=== PATIENT | female | born 2005 | race Two or more races ===

== ENCOUNTER 2025-02-11 11:00 | Emergency (ER) | payer MEDICAID, SELFPAY ==
[2025-02-11 11:28] VITALS: BP 125/80; PULSE 98; RESP 18; TEMP 37.1; O2SAT 100; BMI 27.1
--- NOTE | 2025-02-11 11:47 | EDNOTE_ITS ---
ED Female Urogenital RME/HPI General Chief complaint: Urogenital-Female Stated complaint: PAINFUL URINATION Time Seen by Provider: 02/11/25 11:20 Source: patient Arrival date/time: 02/11/25 11:00 This is a 19-year-old female presents to the emergency department with complaints of painful irritated vaginal orifice. Patient reports her symptoms started after sexual activity. Complaining of vaginal discharge, painful urination, foul order. Reports she has a painful area in the lower part of her vagina. Denies fever, chills. Mode of arrival: ambulatory Limitations: no limitations Related Data Previous Rx's ?Medication ?Instructions ?Recorded doxycycline hyclate 100 mg capsule 100 mg PO Q12H 7 da ys #14 caps 02/11/25 Allergies Allergy/AdvReac Type Severity Reaction Status Date / Time No Known Allergies Allergy Verified 02/11/25 11:03 Review of Systems Review of Systems Systems Reviewed: All systems reviewed, normal except as documented Narrative Review of Systems: Gen: No fever, no chills, no weight loss EYES: No discharge, no visual changes, no pain HEENT: No ear pain, no congestion, no sore throat PULM: No shortness of breath, no cough, no congestion CV: No chest pain, no dyspnea on exertion, no palpitations GI: No nausea, no vomiting, no diarrhea, no pain, no constipation : No frequency, no urgency, positive dysuria, vaginal pain, vaginal discharge Musc/skel: No joint pain, no back pain Skin: No rash Psyc: No hallucinations, no depression Heme/Lymph: No easy bleeding or bruising tendencies Neuro: No weakness, no headache ED Exam General Limitations: Present no limitations General appearance: Present alert and in no apparent distress Head Head exam: Present atraumatic Eye Eye exam: Present normal appearance, PERRL and EOMI ENT ENT exam: Present normal exam, normal oropharynx and mucous membranes moist Neck Neck exam: Present normal inspection, full ROM and trachea midline Chest Chest inspection: Present normal inspection and symmetric chest wall rise Respiratory Respiratory exam: Present normal lung sounds bilaterally Cardiovascular Cardiovascular exam: Present regular rate, normal rhythm and normal heart sounds Abdominal Exam Abdominal exam: Present soft and normal bowel sounds; Absent distention, tenderness or guarding External exam: Present erythema, tenderness and lacerations (Appears to have a small abrasion lower vaginal opening.) Speculum exam: Present vaginal discharge Extremities Exam Extremities exam: Present normal inspection and full ROM Back Exam Back exam: Present normal inspection and full ROM Neurological Exam Neurological exam: Present alert, oriented X3 and CN II-XII intact Psychiatric Psychiatric exam: Present normal affect and normal mood Skin Skin exam: Present warm, dry, intact and normal color Course Quality Measures none Orders Category Date Time Status Pelvic Exam X1 Care 02/11/25 11:46 Completed US pelvic complete Stat Exams 02/11/25 11:46 Completed Bacterial Vaginal Panel Stat Lab 02/11/25 12:53 Completed CBC Stat Lab 02/11/25 12:24 Completed CMP [Comprehensive Metabolic Panel] Stat Lab 02/11/25 12:24 Completed Chlamydia/GC/TV - PCR Stat Lab 02/11/25 12:15 Completed HCG,Qualitative Serum Stat Lab 02/11/25 12:24 Completed Path Review Blood Smear Stat Lab 02/11/25 12:24 Completed Urinalysis, C/S if Indicated Stat Lab 02/11/25 12:15 Completed Urine Culture Stat Lab 02/11/25 12:15 Completed cefTRIAXone [Rocephin] 500 mg Med 02/11/25 13:47 Discontinued Lidocaine 1% 20 ml [Xylocaine 1% 20 ML] 1 ml IM X1 Vital Signs Vital signs: Vital Signs Temperature 98.7 F 02/11/25 11:28 Pulse Rate 98 02/11/25 11:28 Respiratory Rate 18 02/11/25 11:28 Blood Pressure 125/80 02/11/25 11:28 Pulse Oximetry (%) 100 02/11/25 11:28 Oxygen Delivery Method Room Air 02/11/25 11:28 Urogenital - Female MDM Narrative MDM Narrative:: This is a 19-year-old female who presents to the emergency department for vaginal complaints of vaginal discharge dysuria after sexual activity. Pelvic exam done with roller print tender in room patient does have clear vaginal discharge, small area of tenderness irritation possible abrasion to lower vaginal orifice. A bacterial vaginosis swab was completed however no results will be posted today. I will treat her empirically for STDs advised to follow-up on the swab for possible BV Advised to keep follow-up with her PCP in 1 to 2 days. Return to the emergency department this any worsening symptoms or change in condition. Patient data External records reviewed:: [facility] previous records Clinical information provided by:: patient Social determinants that could affect healthcare access:: none Patient has the following chronic illnesses:: None How is presenting disease/condition affected by chronic disease/condition?: no chronic disease Evaluation data The following diagnostics were reviewed and interpreted by me:: other (specify) Lab and/or radiology exams considered but not ordered:: No Interpretation Summary: Examination: Pelvic ultrasound, transabdominal, complete Technique: Transabdominal ultrasound of the pelvis performed using grayscale imaging Date and time of exam: February 11, 2025 at 11:55 AM INDICATIONS: Vaginal pain beginning 3 days ago FINDINGS: Uterus 6.1 cm endometrial stripe 12 mm No uterine mass or intrauterine gestation Right ovary 3.5 cm arterial flow. Left ovary 3.7 cm arterial flow. IMPRESSION: Negative examination Medications / Prescriptions Medications or Prescriptions considered but not ordered:: No Medication administrations:: Medication Administration History Discontinued Medications Ceftriaxone Sodium 500 mg/ (Lidocaine HCl 1 ml) 0 mg IM X1 ONE Stop: 02/11/25 13:48 Last Admin: 02/11/25 13:59 Dose: 1,000 mg Documented By: OLIVE Comments: 2.1 ml lido All medications administered and effective Consultations Consultation(s) initiated? (list below): No Diagnosis Urogenital Female Differential Diagnosis: urinary tract infection, bacterial vaginosis, trichomoniasis, cervicitis and ruptured ovarian cyst Most likely diagnosis given after review of the tests above:: UTI, possible STDs Admission Indicated Admission indicated?: not indicated Admission Request Was there a request for admission?: No Disposition Plan Disposition Plan: Discharge Discharge Attestation Discharge Attestation: The patient and all family members were given an opportunity to ask questions and understood the discharge instructions. Discharge instructions specifically effects, indications for sooner follow up or return to the emergency department, and the expected course of current diagnosis. Patient condition: Stable Discharge Plan Plan Patient Disposition: HOME (Self Care) Patient condition on transfer: Stable Prescriptions/Referrals Prescriptions/Med Rec: New doxycycline hyclate 100 mg capsule 100 mg PO Q12H 7 Days Qty: 14 0RF Problem List Clinical Impression: Urinary tract infection, Pain associated with vaginal penetration, Potential exposure to STD Patient/Caregiver Discharge Instructions Discharge Activity: activity as tolerated Education Materials: ED CYSTITIS Female Adult Additional Instructions: Is very important that you start antibiotics as directed. Some of your lab results are not completed today if they are positive we will call you for results. Otherwise refrain from sexual activity for 7 days. Follow-up with your primary doctor/or DRY CLEANER APPRENTICE doctor for follow-up care. Return to the emergency department this any worsening symptoms or change in condition. Print Language: Taiwanese Stand Alone Forms: Kirsten Award Info., Work/School Release, Patient Portal Info Letter PA/CRISTIAN Supervising Physician PA/CRISTIAN Supervising Physician: Dr. Childress
[2025-02-11 12:33] LABS: Collection Type, Urine Clean Catch
[2025-02-11 12:45] LABS: Basophils # (Auto) 0.1 Thou/mm3 (0.0-0.2); Basophils % (Auto) 1 % (0-2.5); Eosinophils # (Auto) 0.1 Thou/mm3 (0.0-0.5); Eosinophils % (Auto) 1 % (0-10); Hematocrit 31.8 % (36.0-46.0); Hemoglobin 9.3 g/dL (12.0-16.0); Immature Granulocytes % (Auto) 0 % (0-0); Immature Granulocytes Auto 0.02 Thou/mm3 (0.00-0.00); Lymphocytes # (Auto) 1.9 Thou/mm3 (1.0-5.0); Lymphocytes % (Auto) 23 % (10-50); Mean Corpuscular HGB Conc 29.2 g/dl (31.0-37.0); Mean Corpuscular Hemoglobin 18.6 pg (25.0-35.0); Mean Corpuscular Volume 64 fL (80-100); Monocytes # (Auto) 0.6 Thou/mm3 (0.0-0.8); Monocytes % (Auto) 8 % (0-12); Neutrophils # (Auto) 5.3 Thou/mm3 (1.8-7.7); Neutrophils % (Auto) 67 % (37-80); Nucleated Red Blood Cell % 0 /100 WBC (0); Platelet Count 387 Thou/mm3 (140-440); RDW Standard Deviation 40.5 fL (36.4-46.3); White Blood Count 7.9 Thou/mm3 (4.5-11.0)
[2025-02-11 12:52] LABS: Bacteria,Urine Rare; Bilirubin,Urine Negative (Negative); Blood,Urine Negative (Negative); Clarity,Urine Cloudy (Clear/Hazy); Color,Urine Lt-Yellow (Lt Yel-Yel); Culture Indicated,Urine Yes; Glucose, Urine Negative (Negative); Ketones,Urine Negative (Negative); Leukocyte Esterase,Urine Positive (Negative); Nitrite,Urine Negative (Negative); Protein,Urine Negative (Neg - Trace); RBC,Urine 2 /hpf (0-3); Specific Gravity,Urine 1.011 (1.001-1.035); Squamous Epithelial Cell,Urine 6 /hpf (0-5); Urobilinogen,Urine Negative mg/dL (0.0-1.0); WBC,Urine 61 /hpf (0-5)
[2025-02-11 13:02] LABS: HCG,Qualitative Serum Negative
[2025-02-11 13:10] LABS: Alanine Aminotransferase 31 U/L (10-49); Albumin/Globulin Ratio 1.6 (1.2-2.2); Alkaline Phosphatase 79 U/L (46-116); Anion Gap 9 (7-16); Aspartate Amino Transferase 24 U/L (0-34); BUN/Creatinine Ratio 13 Ratio (12-20); Bilirubin,Total 0.4 mg/dL (0.3-1.2); Blood Urea Nitrogen 9 mg/dL (9-23); Calcium 9.8 mg/dL (8.3-10.6); Calcium (Corrected) 9.8 mg/dL (8.5-10.1); Carbon Dioxide 24.6 mMol/L (20.0-31.0); Chloride 102 mMol/L (98-107); Creatinine (Component) 0.7 mg/dL (0.6-1.3); Estimated Creatinine Clearance 139.6 mL/min (>60); Globulin 3.2 gm/dL (2.3-3.5); Glucose 97 mg/dL (74-106); Osmolality,Calculated 270 (275-295); Potassium 3.9 mMol/L (3.4-5.1); Sodium 136 mMol/L (136-145); Total Protein 8.2 gm/dL (5.7-8.2); eGFR > 60 See Note
[2025-02-11] MEDS: cefTRIAXone 500 MG, LIDOCAINE 1% 20 ML 1 ML IM (13:59)
[2025-02-11 15:14] LABS: Bacterial Vaginosis Markers Positive (Negative)
[2025-02-11 15:24] LABS: Chlamydia trachomatis PCR Negative (Not Detect); Neisseria Gonorrhoeae DNA PCR Negative (Not Detect); Trichomonas Negative (Negative)
[2025-02-11 17:29] LABS: BVAG Candida Positive (Negative); Candida glabrata Negative (Negative); Candida krusei PCR Negative (Negative); Trichomonas Negative (Negative)
[2025-02-11 17:48] LABS: Path Review Blood Smear Sent to Pathologist
== END 2025-02-11 14:12 | disposition home or self-care (01) ==
PROVIDERS: Nurse Practitioner Primary Care; Emergency Provider Emergency Medicine; PCP Family Medicine
DX: N39.0 Urinary tract infection, site not specified (principal); N94.10 Unspecified dyspareunia; Z20.2 Contact with and (suspected) exposure to infections with a predominantly sexual mode of transmission
CPT/HCPCS: 36415; 76856; 80053; 81001; 81514; 84703; 85025; 87086; 87491; 87591; 87661; 96372; 99284; J0696; J3490

== ENCOUNTER 2025-03-21 11:14 | Outpatient (AMB) | payer MEDICAID, SELFPAY ==
--- NOTE | 2025-03-21 11:50 | AMB.OBINITIA ---
Vital Signs 03/21/25 11:51 Height 1.68 m Height Method Stated Weight 78.471 kg Weight Measurement Method Standing Scale BMI 27.9 BP 122/71 Blood Pressure Source Automatic Cuff Blood Pressure Location Right Upper Arm Position Sitting Respiration 14 Pulse 77 Pulse Source Monitor Temp 98.5 F Temp Source Oral Pulse Oximetry (%) 99 Oxygen Delivery Method Room Air Allergies/Home Meds Allergies & Medications Allergies No Known Allergies Allergy (Verified 03/21/25 11:52) Medication Reconciliation No Known Home Medications 03/21/25 [History Confirmed 03/21/25] Intake Visit Data Collection New Patient or Established: Established Patient (seen at [facility] within 3 years) Reason for Visit:: INITIAL CARE Seen by Clinical Staff ONLY (RN/MA): No 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 1. Little interest or pleasure in doing things: not at all 2. Feeling down, depressed, or hopeless: not at all Total score: 0 PHQ-9 3. Trouble falling or staying asleep, or sleeping too much: Not at all 4. Feeling tired or having little energy: Not at all 5. Poor appetite or overeating: Not at all 6. Feeling bad about yourself - or that you are a failure or have let yourself or your family down: Not at all 7. Trouble concentrating on things, such as reading the newspaper or watching television: Not at all 8. Moving or speaking so slowly that other people could have noticed? - Or the opposite - being so fidgety or restless that you have been moving around a lot more than usual: not at all 9. Thoughts that you would be better off or of hurting yourself in some way: Not at all Total score: 0 Source: Developed by Drs. Ortiz Yeboah, Nancy Roman, Samir Modi and colleagues, with an educational royer from [employer]. Depression screen completed yes Social History Living Situation History Marital Status: Single Lives With: Family Housing: House Tobacco History Smoking Status: Never smoker Second Hand Smoke Exposure: No Alcohol History Alcohol Intake: Never Domestic Abuse History Do You Feel Safe at Home: Yes Past Medical History Past Medical History Have you ever been diagnosed with any of the following: Neurological Problems Seizures: No Reproductive Problems Previous Pregnancies: Yes Blood Problems Anemia: Yes History of Present Illness HPI Narrative 19-year-old 2 para 0 SAB 1 for OBI. Last. January 20, 2025. Patient reports sure dates she tracks.'s reports.'s are every month x 5 days. EDC October 28, 2025. Patient denies any existing chronic illness. Denies any social habits and denies any surgeries. She is having some nausea and vomiting with the . Denies any signs or symptoms of SAB. Both patient and partner are happy with the . OB Initial Visit OB Flowsheet OB Flowsheet Initial Weight: Not Recorded Date <del>?</del> EGA Weight Edema CTX Effacement BP Fundal ht Pres Dilation Effacement Station Visit Note Alb Glu FHR Mov 03/21/25 <del>?</del> 9w 5d 78.471 kg absent absent 122/71 8.0 30-year-old 3 para 2 with existing chronic hypertension. Patient's last. January 12, 2025. EDC October 18, 2025. Patient is 10 weeks by dates. She was given vitamins which she is taking. And started on labetalol 100 mg twice daily for chronic hypertension. Patient stopped taking her labetalol 2 weeks ago because of feeling lightheaded and dizzy. She denies any bleeding at this time but she had spotting a week ago. Vision is clear no headaches no epigastric pain. Today I encouraged patient to restart and continue her labetalol twice daily. Ordered a BP kit so patient can take her blood pressure at home and talk to her about taking her blood pressures while she was at work I gave a note for no use of a ladder and no lifting over 20 pounds for work. Patient wants to continue to work. Discussed danger signs symptoms okay to take Tylenol for headache. OB panel hemoglobin A1c CBC NIPT and carrier screening today. I did a CMP today as well. SAB precautions schedule ultrasound for dating and viability on hCG was done return in 3 weeks for follow-up OB check 19-year-old 2 para 0 for first OBI. Last. January 20, 2025. As admitted due date October 28, 2025. Today OB panel was drawn along with hemoglobin A1c and beta quant. Ultrasound for dates and viability. Discussed weight gain and diet. Walk 40 minutes a day. Return in 4 weeks OB check absent Menstrual History Menstrual reliability: definite Flow: normal Menstrual regularity: regular Monthly: Yes Age at menarche: 14 On control pills at conception: No Date of positive home test: 03/14/25 Associated symptoms (LMP): Reports nausea and breast tenderness OB History : 2 Hx Total # of Abortions (Spontaneous & Elective): 1 Infection History & Risk Evaluation History of STDs: none HIV risk evaluation: low risk Hepatitis B risk evaluation: low risk Patient or partner has history of Genital Herpes: No Genetic Screening & History Genetic Screening/Teratology Counseling - Includes patient, baby's father, or anyone in either family with: 1. Patient's age 35 years or older as of estimated date of delivery: No 2. Thalassemia (Frisian, Divehi, Mediterranean, or Background); MCV less than 80: No 3. Neural Tube Defect (Meningomyelocele, Spina Bifida, or Anencephaly): No 4. Congenital Heart Defect: No 5. Down Syndrome: No 6. Jamie-Sachs (Ashkenazi Christian, Cajun, Citizen Of The [place] Tunisian): No 7. Kaya Disease (Ashkenazi Christian): No 8. Familial Dysautonomia (Ashkenazi Christian): No 9. Sickle Cell Disease or Trait (): No 10. Hemophilia or other blood disorders: No 11. Muscular Dystrophy: No 12. Cystic Fibrosis: No 13. Dateland's Chorea: No 14. Mental Retardation/Autism: No 15. Other inherited genetic or chromosomal disorder: No 16. Maternal Metabolic Disorder (EG,TYPE 1 Diabetes, PKU): No 17. Patient or baby's father had a child with defects not listed above: No 18. Recurrent loss or a stillbirth: No 19. Medications (including supplements, vitamins, herbs or otc drugs)/illicit/recreational drugs/alcohol since last menstrual period: No 20. Any other: No Infection History 1. Live with someone with TB or exposed to TB: No 2. Rash or viral illness since last menstrual period: No 3. Hepatitis B,C: No Other (see comments) Source: [employer] Review of Systems Review of Systems Systems Reviewed: All systems reviewed, normal except as documented Gastrointestinal Gastrointestinal: Reports nausea Exam General Limitations: no limitations General Appearance: alert, in no apparent distress, comfortable, cooperative, healthy appearing, well developed and well groomed Chest Chest inspection: Present normal inspection and symmetric chest wall rise Resp Respiratory exam: Present normal lung sounds bilaterally Card Cardiovascular exam: Present regular rate, normal rhythm and normal heart sounds Abdominal Abdominal exam: Present soft and normal bowel sounds Psych Psychiatric exam: Present normal affect and normal mood Assessment & Plan Diagnosis / Problem List (1) Encounter for supervision of normal first , first trimester: Status: Acute Plan continue PNV, vitamin D and iron, increase foods high in vitamin D. SAB precaution, OB panel, HCG and HA1c, sono for viability, RTC 4 week Additional Plan Follow Up: 4 Weeks (obc) Office Procedures OB Clinic LOC & Office Proc's Nursing/Assessment Patient Status: Established Patient OB Clinic Nursing Assessment: Medication Reconciliation, Update PMH in EMR and Vital Signs OB Clinic Coordination of Care: Complex Care and Chronic Disease 1-5, Consent,records obtained, informed consent, Education Simp Pt/Fam, Lab and Imaging orders, Results/Orders obtained and Staff clarify orders Special Needs: Heart tones Miscellaneous Interventions: Blood/Urine Collection Established Patient Charge Established Patient Point Assignment: 165 Established Patient Point Charge: EP Level 5 (160-above)
[2025-03-21 11:51] VITALS: BP 122/71; PULSE 77; RESP 14; TEMP 36.9; O2SAT 99; BMI 27.9
== END 2025-03-21 12:15 | disposition home or self-care (01) ==
LOC: HODSOBC 11:14
PROVIDERS: Supervising Provider Obstetrics & Gynecology; Visit Provider Advanced Practice Midwife
DX: O09.621 Supervision of young multigravida, first trimester (principal); O09.891 Supervision of other high risk pregnancies, first trimester; O10.911 Unspecified pre-existing hypertension complicating pregnancy, first trimester; Z3A.09 9 weeks gestation of pregnancy
CPT/HCPCS: 99215; G0463

== ENCOUNTER 2025-04-11 09:23 | Outpatient (AMB) | payer MEDICAID, SELFPAY ==
[2025-04-11 09:32] VITALS: BP 120/69; PULSE 83; RESP 16; TEMP 36.6; O2SAT 98; BMI 26.8
--- NOTE | 2025-04-11 09:32 | OBCLNT_ITS ---
Vital Signs 04/11/25 09:32 Height 1.7 m Height Method Stated Weight 77.621 kg Weight Measurement Method Standing Scale BMI 26.8 BP 120/69 Blood Pressure Source Automatic Cuff Blood Pressure Location Right Upper Arm Position Sitting Respiration 16 Pulse 83 Pulse Source Monitor Temp 97.8 F Temp Source Oral Pulse Oximetry (%) 98 Oxygen Delivery Method Room Air Allergies/Home Meds Allergies & Medications Allergies No Known Allergies Allergy (Verified 04/11/25 09:33) Medication Reconciliation No Known Home Medications 03/21/25 [History Confirmed 04/11/25] Intake Visit Data Collection New Patient or Established: Established Patient [place] [facility] Reason for Visit:: CARE Seen by Clinical Staff ONLY (RN/MA): No Transformer Builder Required: No Do You Feel Safe at Home: Yes Authorities Contacted: N/A PCP or OBGYN visit in last 3 months: Yes Hx Now: Yes Are you currently on any form of Control: No Pain Present Currently: No Pain Scale Used: Oliver-Meza/Numerical Pain scale:: 0 Smoking Status Smoking Status: Never smoker Questionnaires Covid-19 Vaccine Questionnaire Has patient been vacinated for Covid-19 Have you been vacinated for Covid-19: Yes PHQ-9 PHQ-2 Over the last 2 weeks, how often have you been bothered by any of the following problems? 1. Little interest or pleasure in doing things: not at all 2. Feeling down, depressed, or hopeless: not at all Total score: 0 PHQ-9 3. Trouble falling or staying asleep, or sleeping too much: Not at all 4. Feeling tired or having little energy: Not at all 5. Poor appetite or overeating: Not at all 6. Feeling bad about yourself - or that you are a failure or have let yourself or your family down: Not at all 7. Trouble concentrating on things, such as reading the newspaper or watching television: Not at all 8. Moving or speaking so slowly that other people could have noticed? - Or the opposite - being so fidgety or restless that you have been moving around a lot more than usual: not at all 9. Thoughts that you would be better off or of hurting yourself in some way: Not at all Total score: 0 Source: Developed by Drs. Ortiz Yeboah, Nancy Roman, Samir Modi and colleagues, with an educational royer from [employer]. 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 Patient's last. January 12, 2025. EDC October 18, 2025. Patient is 10 weeks by dates. She was given vitamins which she is taking. And started on labetalol 100 mg twice daily for chronic hypertension. Patient stopped taking her labetalol 2 weeks ago because of feeling lightheaded and dizzy. She denies any bleeding at this time but she had spotting a week ago. Vision is clear no headaches no epigastric pain. Today I encouraged patient to restart and continue her labetalol twice daily. Ordered a BP kit so patient can take her blood pressure at home and talk to her about taking her blood pressures while she was at work I gave a note for no use of a ladder and no lifting over 20 pounds for work. Patient wants to continue to work. Discussed danger signs symptoms okay to take Tylenol for headache. OB panel hemoglobin A1c CBC NIPT and carrier screening today. I did a CMP today as well. SAB precautions schedule ultrasound for dating and viability on hCG was done return in 3 weeks for follow-up OB check 19-year-old 2 para 0 for first OBI. Last. January 20, 2025. As admitted due date October 28, 2025. Today OB panel was drawn along with hemoglobin A1c and beta quant. Ultrasound for dates and viability. Discussed weight gain and diet. Walk 40 minutes a day. Return in 4 weeks OB check 05/21/25 -?-?-?-?-?-?-?-?-?-?-?-?- 12w 5d 77.621 kg 120/69 absent unknown 12 156 absent no c/o of Bleeding,leraking or cramps, slight back ache, doing well NUSWAB for gc/ct, nipt and carrier screen, schedule MFM appointment, sab precaution, re-order dating scan, sab precaution, rtc 4 w obc YESSI Calculator Estimated Delivery Date Method Current WG Current Estimate 10/19/25 LMP (Certain) 12w 5d Notes Visit Date: 04/11/25 Last Updated by: Angle Abrams, BAILEY 19yo, . LMP 01/20. EDC 10/28/25. A+,abs-, rpr;;nr, rub IMM hbsag-,hiv-,HC-, gc/ct done Office Procedures OB Clinic LOC & Office Proc's Nursing/Assessment Patient Status: Established Patient OB Clinic Nursing Assessment: Medication Reconciliation, Update PMH in EMR and Vital Signs OB Clinic Coordination of Care: Complex Care and Chronic Disease 1-5, Consent,records obtained, informed consent, Education Simp Pt/Fam, Lab and Imaging orders, Results/Orders obtained and Staff clarify orders Special Needs: Heart tones Established Patient Charge Established Patient Point Assignment: 135 Established Patient Point Charge: EP Level 4 (120-155) Assessment & Plan Diagnosis / Problem List (1) Encounter for supervision of normal first , first trimester: Status: Acute Plan nipt,carrier screen today, sched MFM anatomy scan, discuss lab, sab precaution, continue PNV and vitamin D. rtc 4 week, NUswab for gc/ct Additional Plan Follow Up: 4 Weeks (obc)
== END 2025-04-11 10:06 | disposition home or self-care (01) ==
LOC: HODSOBC 09:23
PROVIDERS: Supervising Provider Advanced Practice Midwife; Visit Provider Advanced Practice Midwife
DX: O09.621 Supervision of young multigravida, first trimester (principal); Z3A.12 12 weeks gestation of pregnancy
CPT/HCPCS: 99214; G0463

== ENCOUNTER 2025-04-24 13:06 | Outpatient (AMB) | payer MEDICAID, SELFPAY ==
--- NOTE | 2025-04-24 13:17 | OBCLNT_ITS ---
Vital Signs 04/24/25 13:18 Height 1.7 m Height Method Stated Weight 77.678 kg Weight Measurement Method Standing Scale BMI 26.8 BP 115/69 Blood Pressure Source Automatic Cuff Blood Pressure Location Right Upper Arm Position Sitting Respiration 17 Pulse 79 Pulse Source Monitor Temp 98.3 F Temp Source Temporal Artery Scan Pulse Oximetry (%) 95 Oxygen Delivery Method Room Air Allergies/Home Meds Allergies & Medications Allergies No Known Allergies Allergy (Verified 04/24/25 13:19) Medication Reconciliation clotrimazole 2 % vaginal cream (Gyne-Lotrimin) 1 appful vaginal QHS 3 days #21 grams 04/24/25 [Rx] metronidazole 500 mg tablet 500 mg PO BID 7 days #14 tabs 04/24/25 [Rx] Intake Visit Data Collection New Patient or Established: Established Patient (seen at [facility] within 3 years) Reason for Visit:: OBC Seen by Clinical Staff ONLY (RN/MA): No 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 1. Little interest or pleasure in doing things: not at all 2. Feeling down, depressed, or hopeless: not at all Total score: 0 PHQ-9 3. Trouble falling or staying asleep, or sleeping too much: Not at all 4. Feeling tired or having little energy: Not at all 5. Poor appetite or overeating: Not at all 6. Feeling bad about yourself - or that you are a failure or have let yourself or your family down: Not at all 7. Trouble concentrating on things, such as reading the newspaper or watching television: Not at all 8. Moving or speaking so slowly that other people could have noticed? - Or the opposite - being so fidgety or restless that you have been moving around a lot more than usual: not at all 9. Thoughts that you would be better off or of hurting yourself in some way: Not at all Total score: 0 If you checked off any problems, how difficult have these problems made it for you to do your work, take care of things at home, or get along with other people?: not difficult at all Source: Developed by Drs. Ortiz Yeboah, Nancy Roman, Samir Modi and colleagues, with an educational royer from [employer]. 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 Patient's last. January 12, 2025. EDC October 18, 2025. Patient is 10 weeks by dates. She was given vitamins which she is taking. And started on labetalol 100 mg twice daily for chronic hypertension. Patient stopped taking her labetalol 2 weeks ago because of feeling lightheaded and dizzy. She denies any bleeding at this time but she had spotting a week ago. Vision is clear no headaches no epigastric pain. Today I encouraged patient to restart and continue her labetalol twice daily. Ordered a BP kit so patient can take her blood pressure at home and talk to her about taking her blood pressures while she was at work I gave a note for no use of a ladder and no lifting over 20 pounds for work. Patient wants to continue to work. Discussed danger signs symptoms okay to take Tylenol for headache. OB panel hemoglobin A1c CBC NIPT and carrier screening today. I did a CMP today as well. SAB precautions schedule ultrasound for dating and viability on hCG was done return in 3 weeks for follow-up OB check 19-year-old 2 para 0 for first OBI. Last. January 20, 2025. As admitted due date October 28, 2025. Today OB panel was drawn along with hemoglobin A1c and beta quant. Ultrasound for dates and viability. Discussed weight gain and diet. Walk 40 minutes a day. Return in 4 weeks OB check 04/11/25 -?-?-?-?-?-?-?-?-?-?--?-?- 11w 4d 77.621 kg 120/69 absent unknown 12 156 absent no c/o of Bleeding,leraking or cramps, slight back ache, doing well NUSWAB for gc/ct, nipt and carrier screen, schedule MFM appointment, sab precaution, re-order dating scan, sab precaution, rtc 4 w obc 04/24/25 -?-?-?-?-?-?-?-?-?-?-?-?- 13w 3d 77.678 kg 115/69 absent unknown 13 156 active c/o vaginal pain, discharge, curdy, foul odor, vagina red,swollen flagyl 500 bid x7, gynelotrimin x7, nuswab plus, schedule MFM anatomy scan, sb precaution. comfort measure for vaginitis, iron bid. rtc 4 week obc YESSI Calculator Estimated Delivery Date Method Current WG Current Estimate 10/27/25 LMP (Certain) 13w 3d Notes Visit Date: 04/24/25 Last Updated by: Angle Abrams CNM NIPT:neg/girl, SMA- Visit Date: 04/11/25 Last Updated by: Angle Abrams CNM 19yo, . LMP 01/20. EDC 10/28/25. A+,abs-, rpr;;nr, rub IMM hbsag-,hiv-,HC-, gc/ct done Office Procedures OB Clinic LOC & Office Proc's Nursing/Assessment Patient Status: Established Patient OB Clinic Nursing Assessment: Medication Reconciliation, Update PMH in EMR and Vital Signs OB Clinic Coordination of Care: Complex Care and Chronic Disease 1-5, Consent,records obtained, informed consent, Education Simp Pt/Fam and Staff clarify orders Special Needs: Heart tones Established Patient Charge Established Patient Point Assignment: 115 Established Patient Point Charge: EP Level 3 (80-115) Assessment & Plan Diagnosis / Problem List (1) Encounter for supervision of normal first , first trimester: Status: Acute (2) Bacterial vaginal infection: Status: Acute Plan nuswab pluw, start flagyl 500 bid x7 and gynelotrimin x7 days, comfort measure for vaginitis, ordered UA, increase fluid, start iron bid. sched MFM appointment. rtc 3 week Additional Plan Follow Up: 3 Weeks (obc)
[2025-04-24 13:18] VITALS: BP 115/69; PULSE 79; RESP 17; TEMP 36.8; O2SAT 95; BMI 26.8
== END 2025-04-24 13:52 | disposition home or self-care (01) ==
LOC: HODSOBC 13:06
PROVIDERS: Supervising Provider Advanced Practice Midwife; Visit Provider Advanced Practice Midwife
DX: O09.891 Supervision of other high risk pregnancies, first trimester (principal); Z3A.13 13 weeks gestation of pregnancy; O23.591 Infection of other part of genital tract in pregnancy, first trimester; N76.0 Acute vaginitis
CPT/HCPCS: 99213; G0463

== ENCOUNTER 2025-05-09 09:49 | Outpatient (AMB) | payer MEDICAID, SELFPAY ==
[2025-05-09 10:31] VITALS: BP 119/68; PULSE 66; RESP 17; TEMP 36.7; O2SAT 97; BMI 26.7
--- NOTE | 2025-05-09 10:31 | AMB.OBVISIT ---
Vital Signs 05/09/25 10:31 Height 1.7 m Height Method Stated Weight 77.224 kg Weight Measurement Method Standing Scale BMI 26.7 BP 119/68 Blood Pressure Source Automatic Cuff Blood Pressure Location Right Upper Arm Position Sitting Respiration 17 Pulse 66 Pulse Source Monitor Temp 98.0 F Temp Source Temporal Artery Scan Pulse Oximetry (%) 97 Oxygen Delivery Method Room Air Allergies/Home Meds Allergies & Medications Allergies No Known Allergies Allergy (Verified 05/09/25 10:32) Medication Reconciliation No Known Home Medications 05/09/25 [History Confirmed 05/09/25] Intake Visit Data Collection New Patient or Established: Established Patient (seen at [facility] within 3 years) Reason for Visit:: OBC Seen by Clinical Staff ONLY (RN/MA): No Net C Developer Required: No Do You Feel Safe at Home: Yes Authorities Contacted: N/A PCP or OBGYN visit in last 3 months: Yes Date of Last PCP or OBGYN visit: 04/24/25 Hx Now: Yes Are you currently on any form of Control: No Pain Present Currently: Yes Pain Location: Throat Pain Scale Used: Oliver-Meza/Numerical Pain scale:: 3 Smoking Status Smoking Status: Never smoker Questionnaires Covid-19 Vaccine Questionnaire Has patient been vacinated for Covid-19 Have you been vacinated for Covid-19: Yes PHQ-9 PHQ-2 Over the last 2 weeks, how often have you been bothered by any of the following problems? 1. Little interest or pleasure in doing things: not at all 2. Feeling down, depressed, or hopeless: not at all Total score: 0 PHQ-9 3. Trouble falling or staying asleep, or sleeping too much: Not at all 4. Feeling tired or having little energy: Not at all 5. Poor appetite or overeating: Not at all 6. Feeling bad about yourself - or that you are a failure or have let yourself or your family down: Not at all 7. Trouble concentrating on things, such as reading the newspaper or watching television: Not at all 8. Moving or speaking so slowly that other people could have noticed? - Or the opposite - being so fidgety or restless that you have been moving around a lot more than usual: not at all 9. Thoughts that you would be better off or of hurting yourself in some way: Not at all Total score: 0 If you checked off any problems, how difficult have these problems made it for you to do your work, take care of things at home, or get along with other people?: not difficult at all Source: Developed by Drs. Ortiz Yebaoh, Nancy Roman, Samir Modi and colleagues, with an educational royer from [employer]. 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 Patient's last. January 12, 2025. EDC October 18, 2025. Patient is 10 weeks by dates. She was given vitamins which she is taking. And started on labetalol 100 mg twice daily for chronic hypertension. Patient stopped taking her labetalol 2 weeks ago because of feeling lightheaded and dizzy. She denies any bleeding at this time but she had spotting a week ago. Vision is clear no headaches no epigastric pain. Today I encouraged patient to restart and continue her labetalol twice daily. Ordered a BP kit so patient can take her blood pressure at home and talk to her about taking her blood pressures while she was at work I gave a note for no use of a ladder and no lifting over 20 pounds for work. Patient wants to continue to work. Discussed danger signs symptoms okay to take Tylenol for headache. OB panel hemoglobin A1c CBC NIPT and carrier screening today. I did a CMP today as well. SAB precautions schedule ultrasound for dating and viability on hCG was done return in 3 weeks for follow-up OB check 19-year-old 2 para 0 for first OBI. Last. January 20, 2025. As admitted due date October 28, 2025. Today OB panel was drawn along with hemoglobin A1c and beta quant. Ultrasound for dates and viability. Discussed weight gain and diet. Walk 40 minutes a day. Return in 4 weeks OB check 04/11/25 <del>?</del> 11w 4d 77.621 kg 120/69 absent unknown 12 156 absent no c/o of Bleeding,leraking or cramps, slight back ache, doing well NUSWAB for gc/ct, nipt and carrier screen, schedule MFM appointment, sab precaution, re-order dating scan, sab precaution, rtc 4 w obc 04/24/25 <del>?</del> 13w 3d 77.678 kg 115/69 absent unknown 13 156 active c/o vaginal pain, discharge, curdy, foul odor, vagina red,swollen flagyl 500 bid x7, gynelotrimin x7, nuswab plus, schedule MFM anatomy scan, sb precaution. comfort measure for vaginitis, iron bid. rtc 4 week obc 05/09/25 <del>?</del> 15w 4d 77.224 kg 119/68 absent unknown 15 160 active vaginitis improved, did not take flagyl, no sab complaints today. light fm vaginitis improved, did not take flagyl, no sab complaints today. light fm. MFM 06/22/25 advised to complete flagyl now, discuss compliance with meds. schedule MFM appt, AFP today, discuss SAB precaution, rtc 4 week obc YESSI Calculator Estimated Delivery Date Method Current WG Current Estimate 10/27/25 LMP (Certain) 15w 4d Notes Visit Date: 05/09/25 Last Updated by: Angle Abrams CNM A+,abs-, rpr;;nr, rub imm, hbsag-, hiv-, HC-, GC/CT-, NIPT/carrier screen- Visit Date: 04/24/25 Last Updated by: Angle Abrams CNM NIPT:neg/girl, SMA- Visit Date: 04/11/25 Last Updated by: Angle Abrams CNM 19yo, . LMP 01/20. EDC 10/28/25. A+,abs-, rpr;;nr, rub IMM hbsag-,hiv-,HC-, gc/ct done Office Procedures OB Clinic LOC & Office Proc's Nursing/Assessment Patient Status: Established Patient OB Clinic Nursing Assessment: Medication Reconciliation, Update PMH in EMR and Vital Signs OB Clinic Coordination of Care: Complex Care and Chronic Disease 1-5, Consent,records obtained, informed consent, Education Simp Pt/Fam and Staff clarify orders Special Needs: Heart tones Established Patient Charge Established Patient Point Assignment: 115 Established Patient Point Charge: EP Level 3 (80-115) Assessment & Plan Diagnosis / Problem List (1) Encounter for supervision of high risk in second trimester, antepartum: Status: Acute Plan complete flagyl as directed, discuss lab, comfort measure for bV, schedule mfm appointment on 06/22, sab precaution, rtc 4 w obc Additional Plan Follow Up: 4 Weeks (obc)
== END 2025-05-09 10:46 | disposition home or self-care (01) ==
LOC: HODSOBC 09:49
PROVIDERS: Supervising Provider Advanced Practice Midwife; Visit Provider Advanced Practice Midwife
DX: O09.892 Supervision of other high risk pregnancies, second trimester (principal); O23.592 Infection of other part of genital tract in pregnancy, second trimester; N76.0 Acute vaginitis; Z3A.15 15 weeks gestation of pregnancy
CPT/HCPCS: 99213; G0463

== ENCOUNTER 2025-05-17 22:16 | Emergency (ER) | payer MEDICAID, SELFPAY ==
[2025-05-17 22:18] VITALS: BMI 26.9
[2025-05-17 22:29] VITALS: BP 134/71; PULSE 111; RESP 18; TEMP 37; O2SAT 100
--- NOTE | 2025-05-17 22:40 | XR_ITS ---
Examination: Complete OB ultrasound greater than 14 weeks Date and time of exam: May 17, 2025 1123 hours INDICATIONS: Pelvic pain and cramping today Findings: Viable intrauterine single fetus with single amniotic sac presentation breech Cardiac motion 197 BPM Placenta fundal grade 1 Poor visualization umbilical cord Amniotic fluid volume adequate Cervix 4.0 cm Ovaries obscured by bowel gas. Composite estimated gestational age based on BPD, head circumference, abdominal circumference, femur length is 16 weeks 3 days Estimated weight 170 g. Survey of intracranial anatomy, spinal anatomy, abdominal anatomy, four-chamber heart performed with no abnormalities identified. Impression: Viable intrauterine gestation breech presentation No placental hemorrhage Cardiac motion 197 BPM.
[2025-05-18 00:35] LABS: COVID-19 Antigen (In-House) Negative (Negative)
--- NOTE | 2025-05-18 01:57 | PRELIM_ITS ---
Obstetric ultrasound. May 17, 2025 at 2323 hours Clinical history: Pain, no bleeding; 17 weeks. LMP 01/20/2025. Comparison: No prior study is available for comparison. Findings: There is a gravid uterus with a live fetus in breech presentation of mean gestational age 16 weeks and 3 days (by biometry). cardiac activity is present at a heart rate of 197 beats per minute. The placenta is fundal in location, maturity grade I. There is no evidence of placenta previa or retroplacental hemorrhage. Amniotic fluid is subjectively adequate. Estimated weight is 170.4 grams+/- 25 grams. Estimated due date by ultrasound is 10/29/2025. Cervical length measures 4.0 cm. The ovaries are obscured by bowel gas and are not visualized/evaluated on this examination. Impression: Gravid uterus with a single live fetus in breech presentation of mean gestational age 16 weeks 3 days. tachycardia with a heart rate of 197 beats per minute. Recommend follow-up. Report Electronically Signed By: Shree Gavin 05/18/2025 1:57:38 AM [EST]
[2025-05-18 02:42] VITALS: RESP 16
--- NOTE | 2025-05-18 05:21 | EDNOTE_ITS ---
<Statement entered by Catrachita Fajardo MD - 05/18/25 05:50> As co-signing physician, I was present and available for consult prn. I concur with the plan and care as documented by the midlevel provider. Upper Respiratory Inf. RME/HPI General Chief Complaint: Abdominal Pain Stated Complaint: ABD PAIN Time Seen by Provider: 05/17/25 22:40 Arrival date/time: 05/17/25 22:16 19F with no significant PMH presents to ED with several days of cough. Separately, patient has some gen ab cramping, but denies N/V, dysuria, and diarrhea, as well as vaginal bleeding. Patient is 17 weeks and would like to make sure her fetus is all right. Limitations: no limitations Related Data Home Medications ?Medication ?Instructions ?Recorded ?Confirmed No Known Home Medications 05/09/2504/22 Allergies Allergy/AdvReac Type Severity Reaction Status Date / Time No Known Allergies Allergy Verified 05/09/25 10:32 Review of Systems Review of Systems Systems Reviewed: All systems reviewed, normal except as documented Constitutional Constitutional: Reports system reviewed and no additional complaints, except as documented, Denies fever(s) and Denies headache(s) ENT Ears, Nose, Mouth, and Throat: Denies disequilibrium and Denies headache(s) Cardiovascular Cardiovascular: Reports system reviewed and no additional complaints, except as documented, Denies chest pain and Denies dyspnea Respiratory Respiratory: Reports system reviewed and no additional complaints, except as documented, Reports as per HPI, Reports cough and Denies dyspnea Gastrointestinal Gastrointestinal: Reports system reviewed and no additional complaints, except as documented, Reports as per HPI, Reports abdominal pain (cramping), Denies nausea and Denies vomiting Neurologic Neurologic: Reports system reviewed and no additional complaints, except as documented, Denies confusion, Denies disequilibrium and Denies headache(s) Psychiatric Psychiatric: Denies confusion Past Medical History Past Medical History NEUROLOGIC: Negative Seizures REPRODUCTIVE: Positive Previous Pregnancies HEMATOLOGIC: Positive Anemia Social History SMOKING STATUS: Never smoker SECOND HAND EXPOSURE: No ED Exam General Limitations: Present no limitations General appearance: Present alert and in no apparent distress Head Head exam: Present atraumatic Eye Eye exam: Present normal appearance, PERRL and EOMI ENT ENT exam: Present normal exam, normal oropharynx and mucous membranes moist Neck Neck exam: Present normal inspection, full ROM and trachea midline Chest Chest inspection: Present normal inspection and symmetric chest wall rise Respiratory Respiratory exam: Present normal lung sounds bilaterally Cardiovascular Cardiovascular exam: Present regular rate, normal rhythm and normal heart sounds Abdominal Exam Abdominal exam: Present soft and normal bowel sounds Extremities Exam Extremities exam: Present normal inspection and full ROM Back Exam Back exam: Present normal inspection and full ROM Neurological Exam Neurological exam: Present alert, oriented X3 and CN II-XII intact Psychiatric Psychiatric exam: Present normal affect and normal mood Skin Skin exam: Present warm, dry, intact and normal color Course Quality Measures none Orders Category Date Time Status Bedside Influenza A&B Antigen Test NOW Care 05/17/25 22:40 Completed US OB >= 14 weeks Fetus Stat Exams 05/17/25 22:40 Taken COVID-19 Antigen (In-House) Stat Lab 05/17/25 23:02 Completed mg Hyd/Al Hyd/Cherri Susp [Maalox Susp] Med 05/17/25 22:40 Discontinued 30 ml PO X1 ONE Vital Signs Vital signs: Vital Signs Temperature 98.6 F 05/17/25 22:29 Pulse Rate 111 H 05/17/25 22:29 Respiratory Rate 18 05/17/25 22:29 Blood Pressure 134/71 H 05/17/25 22:29 Pulse Oximetry (%) 100 05/17/25 22:29 Oxygen Delivery Method Room Air 05/17/25 22:29 O2 at 100% on RA and WNLs Upper Respiratory Infection MDM Narrative MDM Narrative:: 19F with no significant PMH presents to ED with several days of cough. Separately, patient has some gen ab cramping, but denies N/V, dysuria, and diarrhea, as well as vaginal bleeding. Patient is 17 weeks and would like to make sure her fetus is all right. Physical reveals clear oropharynx and lungs. No ab tenderness. Normal WOB. Patient is afebrile, calm, and alert. Swabs neg. US shows normal IUP with mildly elevated FHR. Photocopy Operator given. Patient data External records reviewed:: [facility] previous records Clinical information provided by:: patient Social determinants that could affect healthcare access:: none Patient has the following chronic illnesses:: none How is presenting disease/condition affected by chronic disease/condition?: no chronic disease Evaluation data The following diagnostics were reviewed and interpreted by me:: lab results and radiology exam(s) Lab and/or radiology exams considered but not ordered:: ordered Interpretation Summary: above Medications / Prescriptions Medications or Prescriptions considered but not ordered:: ordered Medication administrations:: Medication Administration History Discontinued Medications Al Hydrox/Mg Hydrox/Simethicone (Mg Hyd/Al Hyd/Cherri (Maalox Reg) Susp 30 Ml Udc) 30 ml PO X1 ONE Stop: 05/17/25 22:41 Last Admin: 05/18/25 00:03 Dose: Not Given Documented By: CVL Non-Admin Reason: Patient Refused refused because patient was feeling better Consultations Consultation(s) initiated? (list below): No Diagnosis Upper Respiratory Differential Diagnosis: upper respiratory infection, croup, otitis media, sinusitis, viral infection, bronchitis, influenza, pharyngitis and other (encounter for US) Most likely diagnosis given after review of the tests above:: encounter for US and URI Admission Indicated Admission indicated?: not indicated Admission Request Was there a request for admission?: No Disposition Plan Disposition Plan: Discharge Discharge Attestation Discharge Attestation: The patient and all family members were given an opportunity to ask questions and understood the discharge instructions. Discharge instructions specifically effects, indications for sooner follow up or return to the emergency department, and the expected course of current diagnosis. Patient condition: Stable Discharge Plan Plan Patient Disposition: HOME (Self Care) Discharge Disposition comment: Stable Prescriptions/Referrals Prescriptions/Med Rec: No Action No Known Home Medications Referrals: Sonny Manzano MD [Primary Care Provider] - In 1 week Problem List Clinical Impression: URI (upper respiratory infection), Encounter for ultrasound Patient/Caregiver Discharge Instructions Education Materials: Ultrasound, ED URI, Viral, No Abx (Adult) Additional Instructions: Please follow-up with PCP/OBYGN within 24-48 hours and return immediately if symptoms worsen. ITylenol can be used fever/pain control. Benadryl is good for cough, congestion, and sleep. Print Language: Ecuadorean Stand Alone Forms: Patient Portal Info Letter PA/PHYSICAL SCIENCE TEACHER Supervising Physician TU/CRISTIAN Supervising Physician: Dr. Fajardo
== END 2025-05-18 02:44 | disposition home or self-care (01) ==
PROVIDERS: Physician Assistant; Emergency Provider Emergency Medicine; PCP Family Medicine
DX: O99.512 Diseases of the respiratory system complicating pregnancy, second trimester (principal); J06.9 Acute upper respiratory infection, unspecified; Z3A.17 17 weeks gestation of pregnancy; O36.8320 Maternal care for abnormalities of the fetal heart rate or rhythm, second trimester, not applicable or unspecified; O32.1XX0 Maternal care for breech presentation, not applicable or unspecified
CPT/HCPCS: 76805; 87811; 99284

== ENCOUNTER 2025-05-22 11:22 | Outpatient (AMB) | payer MEDICAID, SELFPAY ==
--- NOTE | 2025-05-22 11:53 | OBCLNT_ITS ---
Vital Signs 05/22/25 11:54 Height 1.7 m Height Method Measured Weight 78.131 kg Weight Measurement Method Standing Scale BMI 26.9 BP 115/70 Blood Pressure Source Automatic Cuff Blood Pressure Location Right Upper Arm Position Sitting Respiration 17 Pulse 90 Pulse Source Monitor Temp 98.1 F Temp Source Temporal Artery Scan Pulse Oximetry (%) 95 Oxygen Delivery Method Room Air Allergies/Home Meds Allergies & Medications Allergies No Known Allergies Allergy (Verified 05/22/25 11:55) Medication Reconciliation No Known Home Medications 05/09/25 [History Confirmed 05/22/25] Intake Visit Data Collection New Patient or Established: Established Patient (seen at [facility] within 3 years) Reason for Visit:: OB ER FOLLOW UP Consent obtained for Telemed Visit: No Seen by Clinical Staff ONLY (RN/MA): No Final Finisher Required: No Do You Feel Safe at Home: Yes Authorities Contacted: N/A PCP or OBGYN visit in last 3 months: Yes Date of Last PCP or OBGYN visit: 05/18/25 Hx Now: Yes Are you currently on any form of Control: No Pain Present Currently: No Pain Scale Used: Oliver-Meza/Numerical Pain scale:: 0 Smoking Status Smoking Status: Never smoker Questionnaires Covid-19 Vaccine Questionnaire Has patient been vacinated for Covid-19 Have you been vacinated for Covid-19: Yes PHQ-9 PHQ-2 Over the last 2 weeks, how often have you been bothered by any of the following problems? 1. Little interest or pleasure in doing things: not at all 2. Feeling down, depressed, or hopeless: not at all Total score: 0 PHQ-9 3. Trouble falling or staying asleep, or sleeping too much: Not at all 4. Feeling tired or having little energy: Not at all 5. Poor appetite or overeating: Not at all 6. Feeling bad about yourself - or that you are a failure or have let yourself o r your family down: Not at all 7. Trouble concentrating on things, such as reading the newspaper or watching television: Not at all 8. Moving or speaking so slowly that other people could have noticed? - Or the opposite - being so fidgety or restless that you have been moving around a lot more than usual: not at all 9. Thoughts that you would be better off or of hurting yourself in some way: Not at all Total score: 0 If you checked off any problems, how difficult have these problems made it for you to do your work, take care of things at home, or get along with other people?: not difficult at all Source: Developed by Drs. Ortiz Yeboah, Nancy Roman, Samir Modi and colleagues, with an educational royer from [employer]. 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 She describes the cramping as really bad and something that I hadn't felt before, which prompted her to seek emergency care. During her ER visit, an ultrasound revealed a viable intrauterine with heart tones of 170-197 bpm. The estimated weight was 170 grams, consistent with 16 weeks and 3 days gestation. The anatomy survey was within normal limits. Patient reports no ongoing symptoms since her ER visit. She mentions a recent fall but does not elaborate on any associated symptoms or concerns. Patient is preparing for a trip to [place] and expresses interest in ensuring the baby's we ll-being before travel. She is a at 17 weeks and 3 days gestation. Patient mentions difficulty tolerating her prescribed iron supplement due to dizziness and nausea. She inquires about alternative options and timing for taking her vitamins. Patient is also taking calcium supplements. She reports no current nausea, but has experienced dizziness related to the iron supplement. - Ultrasound (May 17, 2025): - Viable intrauterine - heart rate: 170 bpm (corrected from 197 bpm) - Estimated weight: 170 grams - Estimated gestational age: 16 weeks and 3 days - Anatomy survey: within normal limits - Ultrasound (WedMay 22 2025): - heart rate: 157 bpm - Estimated gestational age: 16 weeks and 2 days (within 1 week plus/minus) - position: Breech [facility] OB Visit Log OB Flowsheet Initial Weight: Not Recorded Date -?-?-?-?-?-?-?-?-?-?-?-?- EGA Weight BP Alb Glu CTX Pres Fundal ht FHR Mov Dilation Station Effacement Hx Notes Visit Note 03/21/25 -?-?-?-?-?--?-?-?-?-?-?-?- 8w 4d 78.471 kg 122/71 absent 8.0 absent 30-year-old 3 para 2 with existing chronic hypertension. Patient's last. January 12, 2025. EDC October 18, 2025. Patient is 10 weeks by dates. She was given vitamins which she is taking. And started on labetalol 100 mg twice daily for chronic hypertension. Patient stopped taking her labetalol 2 weeks ago because of feeling lightheaded and dizzy. She denies any bleeding at this time but she had spotting a week ago. Vision is clear no headaches no epigastric pain. T марина I encouraged patient to restart and continue her labetalol twice daily. Ordered a BP kit so patient can take her blood pressure at home and talk to her about taking her blood pressures while she was at work I gave a note for no use of a ladder and no lifting over 20 pounds for work. Patient wants to continue to work. Discussed danger signs symptoms okay to take Tylenol for headache. OB panel hemoglobin A1c CBC NIPT and carrier screening today. I did a CMP today as well. SAB precautions schedule ultrasound for dating and viability on hCG was done return in 3 weeks for follow-up OB check 19-year-old 2 para 0 for first OBI. Last. January 20, 2025. As admitted due date October 28, 2025. Today OB panel was drawn along with hemoglobin A1c and beta quant. Ultrasound for dates and viability. Discussed weight gain and diet. Walk 40 minutes a day. Return in 4 weeks OB check 04/11/25 -?-?-?-?-?-?-?-?-?-?-?-?- 11w 4d 77.621 kg 120/69 absent unknown 12 156 absent no c/o of Bleeding,leraking or cramps, slight back ache, doing well NUSWAB for gc/ct, nipt and carrier screen, schedule MFM appointment, sab precaution, re-order dating scan, sab precaution, rtc 4 w obc 04/24/25 -?-?-?-?-?-?-?-?-?-?-?-?- 13w 3d 77.678 kg 115/69 absent unknown 13 156 active c/o vaginal pain, discharge, curdy, foul odor, vagina red,swollen flagyl 500 bid x7, gynelotrimin x7, nuswab plus, schedule MFM anatomy scan, sb precaution. comfort measure for vaginitis, iron bid. rtc 4 week obc 05/09/25 -?-?-?-?-?-?-?-?-?-?-?-?- 15w 4d 77.224 kg 119/68 absent unknown 15 160 active vaginitis improved, did not take flagyl, no sab complaints today. light fm vaginitis improved, did not take flagyl, no sab complaints today. light fm. MFM 06/22/25 advised to compl ete flagyl now, discuss compliance with meds. schedule MFM appt, AFP today, discuss SAB precaution, rtc 4 week obc YESSI Calculator Estimated Delivery Date Method Current WG Current Estimate 10/27/25 LMP (Certain) 17w 3d Notes Visit Date: 05/09/25 Last Updated by: Angle Abrams CNM A+,abs-, rpr;;nr, rub imm, hbsag-, hiv-, HC-, GC/CT-, NIPT/carrier screen- Visit Date: 04/24/25 Last Updated by: Angle Abrams CNM NIPT:neg/girl, SMA- Visit Date: 04/11/25 Last Updated by: Angle Abrams CNM 19yo, . LMP 01/20. EDC 10/28/25. A+,abs-, rpr;;nr, rub IMM hbsag-,hiv-,HC-, gc/ct done Exam General General Appearance: alert, in no apparent distress and healthy appearing Head Head exam: atraumatic Neck Neck exam: Present normal inspection and trachea midline Chest Chest inspection: Present normal inspection and symmetric chest wall rise External exam: Present normal external exam; Absent tenderness Neuro Neurological exam: Present oriented X3 Psych Psychiatric exam: Present normal affect and normal mood Office Procedures OB Clinic LOC & Office Proc's Nursing/Assessment Patient Status: Established Patient OB Clinic Nursing Assessment: Medication Reconciliation, Update PMH in EMR and Vital Signs OB Clinic Coordination of Care: Complex Care and Chronic Disease 1-5, Consent,records obtained, informed consent and 4+ Authorizations needed Special Needs: Heart tones Established Patient Charge Established Patient Point Assignment: 115 Established Patient Point Charge: EP Level 3 (80-115) Assessment & Plan Diagnosis / Problem List (1) Encounter for supervision of high risk in second trimester, antepartum: Status: Acute Plan , intrauterine, 17 weeks 3 days Plan: - Continue routine care. - Anatomy scan scheduled for end may. - Follow-up with regular OB provider (Angle Abrams) at the end of May. - Patient counseled on travel precautions: ? Take regular stops while driving to walk around. ? Stay hydrated. ? Take regular bathroom breaks. ? Use antiseptic wipes and hand local tanker truck driver for public restrooms to prevent UTIs. - Advised to seek immediate medical attention at nearest hospital if any issues arise during travel. Iron deficiency anemia Plan: - Switch to an alternative iron supplement formulation to reduce side effects. - Advised on timing of supplement intake: ? Take iron supplement and calcium together. ? Take vitamin separately, at least 2 hours apart from other supplements.
[2025-05-22 11:54] VITALS: BP 115/70; PULSE 90; RESP 17; TEMP 36.7; O2SAT 95; BMI 26.9
== END 2025-05-22 12:13 | disposition home or self-care (01) ==
LOC: HODSOBC 11:22
PROVIDERS: Supervising Provider Obstetrics & Gynecology; Visit Provider Obstetrics & Gynecology
DX: O09.892 Supervision of other high risk pregnancies, second trimester (principal); O99.012 Anemia complicating pregnancy, second trimester; D50.9 Iron deficiency anemia, unspecified; Z3A.17 17 weeks gestation of pregnancy
CPT/HCPCS: 99213; G0463

== ENCOUNTER 2025-06-20 09:06 | Outpatient (AMB) | payer MEDICAID, SELFPAY ==
--- NOTE | 2025-06-20 09:17 | AMB.OBVISIT ---
Allergies/Home Meds Allergies & Medications Allergies No Known Allergies Allergy (Verified 06/20/25 09:18) Medication Reconciliation No Known Home Medications 05/09/25 [History Confirmed 06/20/25] Intake Visit Data Collection New Patient or Established: Established Patient (seen at [facility] within 3 years) Reason for Visit:: CARE Consent obtained for Telemed Visit: Yes Seen by Clinical Staff ONLY (RN/MA): No Traffic Engineering Technician Required: No Do You Feel Safe at Home: Yes Authorities Contacted: N/A PCP or OBGYN visit in last 3 months: Yes Hx Now: Yes Are you currently on any form of Control: No Pain Present Currently: No Pain Scale Used: Oliver-Meza/Numerical Pain scale:: 0 Smoking Status Smoking Status: Never smoker For Telemed visit only Telemed Video/Phone Visit: Yes Verbal consent obtained for Telemed visit?: Yes Verbal Consent witness name: CARLOS Blum Covid-19 Vaccine Questionnaire Has patient been vacinated for Covid-19 Have you been vacinated for Covid-19: Yes PHQ-9 PHQ-2 Over the last 2 weeks, how often have you been bothered by any of the following problems? 1. Little interest or pleasure in doing things: not at all 2. Feeling down, depressed, or hopeless: not at all Total score: 0 PHQ-9 3. Trouble falling or staying asleep, or sleeping too much: Not at all 4. Feeling tired or having little energy: Not at all 5. Poor appetite or overeating: Not at all 6. Feeling bad about yourself - or that you are a failure or have let yourself or your family down: Not at all 7. Trouble concentrating on things, such as reading the newspaper or watching television: Not at all 8. Moving or speaking so slowly that other people could have noticed? - Or the opposite - being so fidgety or restless that you have been moving around a lot more than usual: not at all 9. Thoughts that you would be better off or of hurting yourself in some way: Not at all Source: Developed by Drs. Ortiz Yeboah, Nancy Roman, Samir Modi and colleagues, with an educational royer from [employer]. 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 Patient's last. January 12, 2025. EDC October 18, 2025. Patient is 10 weeks by dates. She was given vitamins which she is taking. And started on labetalol 100 mg twice daily for chronic hypertension. Patient stopped taking her labetalol 2 weeks ago because of feeling lightheaded and dizzy. She denies any bleeding at this time but she had spotting a week ago. Vision is clear no headaches no epigastric pain. Today I encouraged patient to restart and continue her labetalol twice daily. Ordered a BP kit so patient can take her blood pressure at home and talk to her about taking her blood pressures while she was at work I gave a note for no use of a ladder and no lifting over 20 pounds for work. Patient wants to continue to work. Discussed danger signs symptoms okay to take Tylenol for headache. OB panel hemoglobin A1c CBC NIPT and carrier screening today. I did a CMP today as well. SAB precautions schedule ultrasound for dating and viability on hCG was done return in 3 weeks for follow-up OB check 19-year-old 2 para 0 for first OBI. Last. January 20, 2025. As admitted due date October 28, 2025. Today OB panel was drawn along with hemoglobin A1c and beta quant. Ultrasound for dates and viability. Discussed weight gain and diet. Walk 40 minutes a day. Return in 4 weeks OB check 04/11/25 <del>?</del> 11w 4d 77.621 kg 120/69 absent unknown 12 156 absent no c/o of Bleeding,leraking or cramps, slight back ache, doing well NUSWAB for gc/ct, nipt and carrier screen, schedule MFM appointment, sab precaution, re-order dating scan, sab precaution, rtc 4 w obc 04/24/25 <del>?</del> 13w 3d 77.678 kg 115/69 absent unknown 13 156 active c/o vaginal pain, discharge, curdy, foul odor, vagina red,swollen flagyl 500 bid x7, gynelotrimin x7, nuswab plus, schedule MFM anatomy scan, sb precaution. comfort measure for vaginitis, iron bid. rtc 4 week obc 05/09/25 <del>?</del> 15w 4d 77.224 kg 119/68 absent unknown 15 160 active vaginitis improved, did not take flagyl, no sab complaints today. light fm vaginitis improved, did not take flagyl, no sab complaints today. light fm. MFM 06/22/25 advised to complete flagyl now, discuss compliance with meds. schedule MFM appt, AFP today, discuss SAB precaution, rtc 4 week obc 06/20/25 <del>?</del> 21w 4d absent unknown active patient had virtual from [place], ER visit for vaginitis. tx with vaginal cream x 7 days. reports feeling better. good FM, no VB,leaking, or cramps. heading back for [place] advised to make stops on her way home. increase fluid, review PTL precaution, rtc 4 week advised to make stops on her way home. increase fluid, review PTL precaution, rtc 4 week. MFM appt in 1 week YESSI Calculator Estimated Delivery Date Method Current WG Current Estimate 10/27/25 LMP (Certain) 21w 4d Other Estimates 10/28/25 Ultrasound #1 21w 3d Notes Visit Date: 06/20/25 Last Updated by: Angle Abrams CNM 19 yo . lmp 01/20/25. edc 10/27/25 Visit Date: 05/09/25 Last Updated by: Angle Abrams CNM A+,abs-, rpr;;nr, rub imm, hbsag-, hiv-, HC-, GC/CT-, NIPT/carrier screen- Visit Date: 04/24/25 Last Updated by: Angle Abrams CNM NIPT:neg/girl, SMA- Visit Date: 04/11/25 Last Updated by: Angle Abrams CNM 19yo, . LMP 3/. EDC 10/28/25. A+,abs-, rpr;;nr, rub IMM hbsag-,hiv-,HC-, gc/ct done Office Procedures OB Clinic LOC & Office Proc's Nursing/Assessment Patient Status: Established Patient OB Clinic Nursing Assessment: Medication Reconciliation, Update PMH in EMR and Vital Signs OB Clinic Coordination of Care: Complex Care and Chronic Disease 1-5, Consent,records obtained, informed consent, Education Simp Pt/Fam, Lab and Imaging orders, Results/Orders obtained and Staff clarify orders Special Needs: Heart tones Established Patient Charge Established Patient Point Assignment: 135 Established Patient Point Charge: EP Level 4 (120-155) Assessment & Plan Diagnosis / Problem List (1) Encounter for supervision of high risk in second trimester, antepartum: Status: Acute Plan: Increase fluids. Continue prenatals. Discussed comfort measures while driving a long distance. Keep MFM appointment in a week. And return 4 weeks OB Additional Plan Follow Up: 4 Weeks (obc)
== END 2025-06-20 10:23 | disposition home or self-care (01) ==
LOC: HODSOBC 09:06
PROVIDERS: PCP Advanced Practice Midwife; Referring Provider Advanced Practice Midwife; Supervising Provider Advanced Practice Midwife; Visit Provider Advanced Practice Midwife
DX: O09.92 Supervision of high risk pregnancy, unspecified, second trimester (principal); Z3A.21 21 weeks gestation of pregnancy
CPT/HCPCS: 99214; G0463

== ENCOUNTER 2025-06-28 08:34 | Outpatient (AMB) | payer MEDICAID, SELFPAY ==
[2025-06-28 08:46] VITALS: BP 110/70; PULSE 101; RESP 17; TEMP 36.8; O2SAT 97; BMI 27.8
--- NOTE | 2025-06-28 08:46 | AMB.OBVISIT ---
Vital Signs 06/28/25 08:46 Height 1.7 m Height Method Measured Weight 80.399 kg Weight Measurement Method Standing Scale BMI 27.8 BP 110/70 Blood Pressure Source Automatic Cuff Blood Pressure Location Right Upper Arm Position Sitting Respiration 17 Pulse 101 H Pulse Source Monitor Temp 98.2 F Temp Source Temporal Artery Scan Pulse Oximetry (%) 97 Oxygen Delivery Method Room Air Allergies/Home Meds Allergies & Medications Allergies No Known Allergies Allergy (Verified 06/28/25 08:47) Medication Reconciliation clotrimazole 2 % vaginal cream (Gyne-Lotrimin) 1 appful vaginal QHS 7 days #21 grams 06/28/25 [Rx] metronidazole 500 mg tablet 500 mg PO BID 7 days #14 tabs 06/28/25 [Rx] Intake Visit Data Collection New Patient or Established: Established Patient (seen at [facility] within 3 years) Reason for Visit:: OBC Consent obtained for Telemed Visit: No Seen by Clinical Staff ONLY (RN/MA): No Mixer Pigment Required: No Do You Feel Safe at Home: Yes Authorities Contacted: N/A PCP or OBGYN visit in last 3 months: Yes Date of Last PCP or OBGYN visit: 05/22/25 Hx Now: Yes Are you currently on any form of Control: No Pain Present Currently: No Pain Scale Used: Oliver-Meza/Numerical Pain scale:: 0 Smoking Status Smoking Status: Never smoker Questionnaires Covid-19 Vaccine Questionnaire Has patient been vacinated for Covid-19 Have you been vacinated for Covid-19: No PHQ-9 PHQ-2 Over the last 2 weeks, how often have you been bothered by any of the following problems? 1. Little interest or pleasure in doing things: not at all PHQ-9 8. Moving or speaking so slowly that other people could have noticed? - Or the opposite - being so fidgety or restless that you have been moving around a lot more than usual: not at all Source: Developed by Drs. Ortiz Yeboah, Nancy Roman, Samir Modi and colleagues, with an educational royer from [employer]. 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 Patient's last. January 12, 2025. EDC October 18, 2025. Patient is 10 weeks by dates. She was given vitamins which she is taking. And started on labetalol 100 mg twice daily for chronic hypertension. Patient stopped taking her labetalol 2 weeks ago because of feeling lightheaded and dizzy. She denies any bleeding at this time but she had spotting a week ago. Vision is clear no headaches no epigastric pain. Today I encouraged patient to restart and continue her labetalol twice daily. Ordered a BP kit so patient can take her blood pressure at home and talk to her about taking her blood pressures while she was at work I gave a note for no use of a ladder and no lifting over 20 pounds for work. Patient wants to continue to work. Discussed danger signs symptoms okay to take Tylenol for headache. OB panel hemoglobin A1c CBC NIPT and carrier screening today. I did a CMP today as well. SAB precautions schedule ultrasound for dating and viability on hCG was done return in 3 weeks for follow-up OB check 19-year-old 2 para 0 for first OBI. Last. January 20, 2025. As admitted due date October 28, 2025. Today OB panel was drawn along with hemoglobin A1c and beta quant. Ultrasound for dates and viability. Discussed weight gain and diet. Walk 40 minutes a day. Return in 4 weeks OB check 04/11/25 <del>?</del> 11w 4d 77.621 kg 120/69 absent unknown 12 156 absent no c/o of Bleeding,leraking or cramps, slight back ache, doing well NUSWAB for gc/ct, nipt and carrier screen, schedule MFM appointment, sab precaution, re-order dating scan, sab precaution, rtc 4 w obc 04/24/25 <del>?</del> 13w 3d 77.678 kg 115/69 absent unknown 13 156 active c/o vaginal pain, discharge, curdy, foul odor, vagina red,swollen flagyl 500 bid x7, gynelotrimin x7, nuswab plus, schedule MFM anatomy scan, sb precaution. comfort measure for vaginitis, iron bid. rtc 4 week obc 05/09/25 <del>?</del> 15w 4d 77.224 kg 119/68 absent unknown 15 160 active vaginitis improved, did not take flagyl, no sab complaints today. light fm vaginitis improved, did not take flagyl, no sab complaints today. light fm. MFM 06/22/25 advised to complete flagyl now, discuss compliance with meds. schedule MFM appt, AFP today, discuss SAB precaution, rtc 4 week obc 06/20/25 <del>?</del> 21w 4d absent unknown active patient had virtual from [place], ER visit for vaginitis. tx with vaginal cream x 7 days. reports feeling better. good FM, no VB,leaking, or cramps. heading back for [place] advised to make stops on her way home. increase fluid, review PTL precaution, rtc 4 week advised to make stops on her way home. increase fluid, review PTL precaution, rtc 4 week. MFM appt in 1 week 06/28/25 <del>?</del> 22w 5d 80.399 kg 110/70 absent unknown 22 146 active No OB complaint, denies leaking,bleeding, UC. c/o vaginal discharge, dysuria. But NuSwab plus today. I gave prescription CHECK PROCESSING CLERK Lotrimin 1-2 per vagina x 7 days and Flagyl 500 twice daily x 7 days comfort measures for vaginitis. Keep maternal- medicine appointment RTC 2024. And increase fluids. Discussed diet and weight. labor precautions reviewed YESSI Calculator Estimated Delivery Date Method Current WG Current Estimate 10/27/25 LMP (Certain) 22w 5d Other Estimates 10/28/25 Ultrasound #1 22w 4d Notes Visit Date: 06/28/25 Last Updated by: Angle Abrams CNM OB panel: A+,abs-, rpr;;nr, rub IMM, hbsag-,hiv-,Hc-, NIPT-, carrier screen-,AFP- Visit Date: 06/20/25 Last Updated by: Angle Abrams CNM 19 yo . lmp 01/20/25. edc 10/27/25 Visit Date: 05/09/25 Last Updated by: Angle Abrams CNM A+,abs-, rpr;;nr, rub imm, hbsag-, hiv-, HC-, GC/CT-, NIPT/carrier screen- Visit Date: 04/24/25 Last Updated by: Angle Abrams CNM NIPT:neg/girl, SMA- Visit Date: 04/11/25 Last Updated by: Angle Abrams CNM 19yo, . LMP 01/20. EDC 10/28/25. A+,abs-, rpr;;nr, rub IMM hbsag-,hiv-,HC-, gc/ct done Office Procedures OB Clinic LOC & Office Proc's Nursing/Assessment Patient Status: Established Patient OB Clinic Nursing Assessment: Medication Reconciliation, Update PMH in EMR and Vital Signs OB Clinic Coordination of Care: Complex Care and Chronic Disease 1-5, Consent,records obtained, informed consent, Education Simp Pt/Fam and 4+ Authorizations needed Special Needs: Heart tones Established Patient Charge Established Patient Point Assignment: 130 Established Patient Point Charge: EP Level 4 (120-155) Assessment & Plan Diagnosis / Problem List (1) Vaginitis: Status: Acute Qualifiers: Chronicity: acute Qualified Code(s): N76.0 - Acute vaginitis (2) Encounter for supervision of high risk in second trimester, antepartum: Status: Acute Plan New swab today plus comfort measures for vaginitis. I called prescription to CHECK PROCESSING CLERK Lotrimin x 7. And Flagyl 500 twice daily x 7 to the pharmacy. Follow-up maternal- ultrasound June 29. Discussed precautions and increase fluids. Return in 4 weeks OB to Additional Plan Follow Up: 4 Weeks (OBC)
== END 2025-06-28 09:32 | disposition home or self-care (01) ==
LOC: HODSOBC 08:34
PROVIDERS: Supervising Provider Advanced Practice Midwife; Visit Provider Advanced Practice Midwife
DX: O09.892 Supervision of other high risk pregnancies, second trimester (principal); O23.592 Infection of other part of genital tract in pregnancy, second trimester; N76.0 Acute vaginitis; Z3A.22 22 weeks gestation of pregnancy
CPT/HCPCS: 99214; G0463

== ENCOUNTER 2025-07-13 08:38 | Outpatient (AMB) | payer MEDICAID, SELFPAY ==
[2025-07-13 08:41] VITALS: BP 107/66; PULSE 84; RESP 16; TEMP 36.8; O2SAT 97; BMI 28.0
--- NOTE | 2025-07-13 08:41 | OBCLNT_ITS ---
Vital Signs 07/13/25 08:41 Height 1.7 m Height Method Stated Weight 81.306 kg Weight Measurement Method Standing Scale BMI 28.0 BP 107/66 Blood Pressure Source Automatic Cuff Blood Pressure Location Left Upper Arm Position Sitting Respiration 16 Pulse 84 Pulse Source Monitor Temp 98.2 F Temp Source Oral Pulse Oximetry (%) 97 Oxygen Delivery Method Room Air Allergies/Home Meds Allergies & Medications Allergies No Known Allergies Allergy (Verified 07/13/25 08:43) Medication Reconciliation clotrimazole 2 % vaginal cream (Gyne-Lotrimin) 1 appful vaginal QHS 7 days #21 grams 06/28/25 [Rx Confirmed 07/13/25] clotrimazole 1 % vaginal cream 1 appful vaginal QHS #45 grams 06/29/25 [Rx Confirmed 07/13/25] Intake Visit Data Collection New Patient or Established: Established Patient (seen at [facility] within 3 years) Reason for Visit:: CARE Seen by Clinical Staff ONLY (RN/MA): No Negative Cutter Required: No Do You Feel Safe at Home: Yes Authorities Contacted: N/A PCP or OBGYN visit in last 3 months: Yes Hx Now: Yes Are you currently on any form of Control: No Pain Present Currently: No Pain Scale Used: Oliver-Meza/Numerical Pain scale:: 0 Smoking Status Smoking Status: Never smoker Questionnaires Covid-19 Vaccine Questionnaire Has patient been vacinated for Covid-19 Have you been vacinated for Covid-19: Yes PHQ-9 PHQ-2 Over the last 2 weeks, how often have you been bothered by any of the following problems? 1. Little interest or pleasure in doing things: not at all 2. Feeling down, depressed, or hopeless: not at all Total score: 0 PHQ-9 3. Trouble falling or staying asleep, or sleeping too much: Not at all 4. Feeling tired or having little energy: Not at all 5. Poor appetite or overeating: Not at all 6. Feeling bad about yourself - or that you are a failure or have let yourself or your family down: Not at all 7. Trouble concentrating on things, such as reading the newspaper or watching television: Not at all 8. Moving or speaking so slowly that other people could have noticed? - Or the opposite - being so fidgety or restless that you have been moving around a lot more than usual: not at all 9. Thoughts that you would be better off or of hurting yourself in some way: Not at all Total score: 0 Source: Developed by Drs. Ortiz Yeboah, Nancy Roman, Samir Modi and colleagues, with an educational royer from [employer]. 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 Patient's last. January 12, 2025. EDC October 18, 2025. Patient is 10 weeks by dates. She was given vitamins which she is taking. And started on labetalol 100 mg twice daily for chronic hypertension. Patient stopped taking her labetalol 2 weeks ago because of feeling lightheaded and dizzy. She denies any bleeding at this time but she had spotting a week ago. Vision is clear no headaches no epigastric pain. Today I encouraged patient to restart and continue her labetalol twice daily. Ordered a BP kit so patient can take her blood pressure at home and talk to her about taking her blood pressures while she was at work I gave a note for no use of a ladder and no lifting over 20 pounds for work. Patient wants to continue to work. Discussed danger signs symptoms okay to take Tylenol for headache. OB panel hemoglobin A1c CBC NIPT and carrier screening today. I did a CMP today as well. SAB precautions schedule ultrasound for dating and viability on hCG was done return in 3 weeks for follow-up OB check 19-year-old 2 para 0 for first OBI. Last. January 20, 2025. As admitted due date October 28, 2025. Today OB panel was drawn along with hemoglobin A1c and beta quant. Ultrasound for dates and viability. Discussed weight g ain and diet. Walk 40 minutes a day. Return in 4 weeks OB check 04/11/25 -?-?-?-?-?-?-?-?-?-?-?-?- 11w 4d 77.621 kg 120/69 absent unknown 12 156 absent no c/o of Bleeding,leraking or cramps, slight back ache, doing well NUSWAB for gc/ct, nipt and carrier screen, schedule MFM appointment, sab precaution, re-order dating scan, sab precaution, rtc 4 w ob 04/24/25 -?-?-?-?-?-?-?-?-?-?-?-?- 13w 3d 77.678 kg 115/69 absent unknown 13 156 active c/o vaginal pain, discharge, curdy, foul odor, vagina red,swollen flagyl 500 bid x7, gynelotrimin x7, nuswab plus, schedule MFM anatomy scan, sb precaution. comfort measure for vaginitis, iron bid. rtc 4 week obc 05/09/25 -?-?-?-?-?-?-?-?-?-?-?-?- 15w 4d 77.224 kg 119/68 absent unknown 15 160 active vaginitis improved, did not take flagyl, no sab complaints today. light fm vaginitis improved, did not take flagyl, no sab complaints today. light fm. MFM 06/22/25 advised to compl ete flagyl now, discuss compliance with meds. schedule MFM appt, AFP today, discuss SAB precaution, rtc 4 week obc 06/20/25 -?-?-?-?-?-?-?-?-?-?-?-?- 21w 4d absent unknown active patient had virtual from [place], ER visit for vaginitis. tx with vaginal cream x 7 days. reports feeling better. good FM, no VB,leaking, or cramps. heading back for [place] advised to make stops on her way home. increase fluid, review PTL precaution, rtc 4 week advised to make stops on her way home. increase fluid, review PTL precaution, rtc 4 week. MFM appt in 1 week 06/28/25 -?-?-?-?-?-?-?-?-?-?-?-?- 22w 5d 80.399 kg 110/70 absent unknown 22 146 active No OB complaint, denies leaking,bleeding, UC. c/o vaginal discharge, dysuria. But NuSwab plus today. I gave prescription REGULATORY ASSOCIATE Lotrimin 1-2 per vagina x 7 days and Flagyl 500 twice daily x 7 days comfort measures for vaginitis. Keep maternal- medicine appointment RTC 2024. And increase fluids. Discussed diet and weight. labor precautions reviewed 07/13/25 -?-?-?-?-?-?-?-?-?-?-?-?- 24w 6d 81.306 kg 107/66 absent unknown 24 146 active No OB complaints. Continued discharge despite being treated for BV and yeast. Reports good movement. Occasional cramp. No other complaints. Patient will be scheduled for growth sono and at 36 weeks. New swab today. I will treat if positive culture. Third trimester labs ordered. Discussed labor precautions. Increase fluids. Comfort measures for vaginitis. Return in 4 weeks for recheck YESSI Calculator Estimated Delivery Date Method Current WG Current Estimate 10/27/25 LMP (Certain) 24w 6d Other Estimates 10/28/25 Ultrasound #1 24w 5d 10/27/25 Ultrasound #2 24w 6d Notes Visit Date: 07/13/25 Last Updated by: Angle Abrams CNM 19 yo lmp: 01/20/25. EDC 10/27/25. sono: 06/29/25: 22w6, 26% Visit Date: 06/28/25 Last Updated by: Angle Abrams CNM OB panel: A+,abs-, rpr;;nr, rub IMM, hbsag-,hiv-,Hc-, NIPT-, carrier screen-,AFP- Visit Date: 06/20/25 Last Updated by: Angle Abrams CNM 19 yo . lmp 01/20/25. edc 10/27/25 Visit Date: 05/09/25 Last Updated by: Angle Abrams CNM A+,abs-, rpr;;nr, rub imm, hbsag-, hiv-, HC-, GC/CT-, NIPT/carrier screen- Visit Date: 04/24/25 Last Updated by: Angle Abrams CNM NIPT:neg/girl, SMA- Visit Date: 04/11/25 Last Updated by: Angle Abrams CNM 19yo, . LMP 01/20. EDC 10/28/25. A+,abs-, rpr;;nr, rub IMM hbsag-,hiv-,HC-, gc/ct done Office Procedures OB Clinic LOC & Office Proc's Nursing/Assessment Patient Status: Established Patient OB Clinic Nursing Assessment: Medication Reconciliation, Update PMH in EMR and Vital Signs OB Clinic Coordination of Care: Complex Care and Chronic Disease 1-5, Consent,records obtained, informed consent, Education Simp Pt/Fam, 1 Ins Authorization, Lab and Imaging orders and Staff clarify orders Special Needs: Heart tones Miscellaneous Interventions: Culture Specimen Collection Established Patient Charge Established Patient Point Assignment: 160 Established Patient Point Charge: EP Level 5 (160-above) Assessment & Plan Diagnosis / Problem List (1) Encounter for supervision of high risk in second trimester, antepartum: Status: Acute (2) Vaginitis: Status: Acute Qualifiers: Chronicity: acute Qualified Code(s): N76.0 - Acute vaginitis Plan Comfort measures for vaginitis. New swab today. Third trimester labs ordered. Discussed comfort measures for cramps. Increase fluids. labor precautions reviewed. Follow-up ultrasound with MFM at 36 weeks. Return in 4 weeks OB check Additional Plan Follow Up: 4 Weeks (obc)
== END 2025-07-13 09:09 | disposition home or self-care (01) ==
LOC: HODSOBC 08:38
PROVIDERS: Supervising Provider Advanced Practice Midwife; Visit Provider Advanced Practice Midwife
DX: O09.892 Supervision of other high risk pregnancies, second trimester (principal); O23.592 Infection of other part of genital tract in pregnancy, second trimester; N76.0 Acute vaginitis; Z3A.24 24 weeks gestation of pregnancy
CPT/HCPCS: 99215; G0463

== ENCOUNTER 2025-08-09 10:32 | Outpatient (AMB) | payer MEDICAID, SELFPAY ==
[2025-08-09 10:55] VITALS: BP 122/61; PULSE 102; RESP 18; TEMP 36.8; O2SAT 98; BMI 28.9
--- NOTE | 2025-08-09 10:55 | OBCLNT_ITS ---
Vital Signs 08/09/25 10:55 Height 1.7 m Height Method Stated Weight 83.688 kg Weight Measurement Method Standing Scale BMI 28.9 BP 122/61 Blood Pressure Source Automatic Cuff Blood Pressure Location Left Upper Arm Position Sitting Respiration 18 Pulse 102 H Pulse Source Monitor Temp 98.2 F Temp Source Oral Pulse Oximetry (%) 98 Oxygen Delivery Method Room Air Allergies/Home Meds Allergies & Medications Allergies No Known Allergies Allergy (Verified 08/09/25 10:56) Medication Reconciliation clotrimazole 1 % vaginal cream 1 appful vaginal QHS #45 grams 06/29/25 [Rx Confirmed 08/09/25] clotrimazole 2 % vaginal cream (Gyne-Lotrimin) 1 appful vaginal QHS 7 days #1 tube 07/30/25 [Rx Confirmed 08/09/25] fluconazole 150 mg tablet 150 mg PO QDAY 3 days #3 tabs 08/09/25 [Rx] Intake Visit Data Collection New Patient or Established: Established Patient (seen at [facility] within 3 years) Reason for Visit:: OBC Seen by Clinical Staff ONLY (RN/MA): No Any Commodity Sales Deliverer Required: No Do You Feel Safe at Home: Yes Authorities Contacted: N/A PCP or OBGYN visit in last 3 months: Yes Date of Last PCP or OBGYN visit: 07/13/25 Hx Now: Yes Are you currently on any form of Control: No Pain Present Currently: No Pain Scale Used: Oliver-Meza/Numerical Pain scale:: 0 Smoking Status Smoking Status: Never smoker Questionnaires Covid-19 Vaccine Questionnaire Has patient been vacinated for Covid-19 Have you been vacinated for Covid-19: No PHQ-9 PHQ-2 Over the last 2 weeks, how often have you been bothered by any of the following problems? 1. Little interest or pleasure in doing things: not at all 2. Feeling down, depressed, or hopeless: not at all Total score: 0 PHQ-9 3. Trouble falling or staying asleep, or sleeping too much: Not at all 4. Feeling tired or having little energy: Not at all 5. Poor appetite or overeating: Not at all 6. Feeling bad about yourself - or that you are a failure or have let yourself or your family down: Not at all 7. Trouble concentrating on things, such as reading the newspaper or watching television: Not at all 8. Moving or speaking so slowly that other people could have noticed? - Or the opposite - being so fidgety or restless that you have been moving around a lot more than usual: not at all 9. Thoughts that you would be better off or of hurting yourself in some way: Not at all Total score: 0 If you checked off any problems, how difficult have these problems made it for you to do your work, take care of things at home, or get along with other people?: not difficult at all Source: Developed by Drs. Ortiz Yeboah, Nancy Roman, Samir Modi and colleagues, with an educational royer from [employer]. 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 Patient's last. January 12, 2025. EDC October 18, 2025. Patient is 10 weeks by dates. She was given vitamins which she is taking. And started on labetalol 100 mg twice daily for chronic hypertension. Patient stopped taking her labetalol 2 weeks ago because of feeling lightheaded and dizzy. She denies any bleeding at this time but she had spotting a week ago. Vision is clear no headaches no epigastric pain. Today I encouraged patient to restart and continue her labetalol twice daily. Ordered a BP kit so patient can take her blood pressure at home and talk to her about taking her blood pressures while she was at work I gave a note for no use of a ladder and no lifting over 20 pounds for work. Patient wants to continue to work. Discussed danger signs symptoms okay to take Tylenol for headache. OB panel hemoglobin A1c CBC NIPT and carrier screening today. I did a CMP today as well. SAB precautions schedule ultrasound for dating and viability on hCG was done return in 3 weeks for follow-up OB check 19-year-old 2 para 0 for first OBI. Last. January 20, 2025. As admitted due date October 28, 2025. Today OB panel was drawn along with hemoglobin A1c and beta quant. Ultrasound for dates and viability. Discussed weight gain and diet. Walk 40 minutes a day. Return in 4 weeks OB check 04/11/25 -?-?-?-?-?-?-?-?-?-?-?-?- 11w 4d 77.621 kg 120/69 absent unknown 12 156 absent no c/o of Bleeding,leraking or cramps, slight back ache, doing well NUSWAB for gc/ct, nipt and carrier screen, schedule MFM appointment, sab precaution, re-order dating scan, sab precaution, rtc 4 w obc 04/24/25 -?-?-?-?-?-?-?-?-?-?-?-?- 13w 3d 77.678 kg 115/69 absent unknown 13 156 active c/o vaginal pain, discharge, curdy, foul odor, vagina red,swollen flagyl 500 bid x7, gynelotrimin x7, nuswab plus, schedule MFM anatomy scan, sb precaution. comfort measure for vaginitis, iron bid. rtc 4 week obc 05/09/25 -?-?-?-?-?-?-?-?-?-?-?-?- 15w 4d 77.224 kg 119/68 absent unknown 15 160 active vaginitis improved, did not take flagyl, no sab complaints today. light fm vaginitis improved, did not take flagyl, no sab complaints today. light fm. MFM 06/22/25 advised to compl ete flagyl now, discuss compliance with meds. schedule MFM appt, AFP today, discuss SAB precaution, rtc 4 week obc 06/20/25 -?-?-?-?-?-?-?-?-?-?-?-?- 21w 4d absent unknown active patient had virtual from [place], ER visit for vaginitis. tx with vaginal cream x 7 days. reports feeling better. good FM, no VB,leaking, or cramps. heading back for [place] advised to make stops on her way home. increase fluid, review PTL precaution, rtc 4 week advised to make stops on her way home. increase fluid, review PTL precaution, rtc 4 week. MFM appt in 1 week 06/28/25 -?-?-?-?-?-?-?-?-?-?-?-?- 22w 5d 80.399 kg 110/70 absent unknown 22 146 active No OB complaint, denies leaking,bleeding, UC. c/o vaginal discharge, dysuria. But NuSwab plus today. 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 Keep maternal- medicine appointment RTC 2024. And increase fluids. Discussed diet and weight. labor precautions reviewed 07/13/25 -?-?-?-?-?-?-?-?-?-?-?-?- 24w 6d 81.306 kg 107/66 absent unknown 24 146 active No OB complaints. Continued discharge despite being treated for BV and yeast. Reports good movement. Occasional cramp. No other complaints. Patient will be scheduled for growth sono and at 36 weeks. New swab today. I will treat if positive culture. Third trimester labs ordered. Discussed labor precautions. Increase fluids. Comfort measures for vaginitis. Return in 4 weeks for recheck 08/09/25 -?-?-?-?-?-?-?-?-?-?-?-?- 28w 5d 83.688 kg 122/61 absent unknown 28 146 active Patient reports feeling much better. She started the Diflucan and her symptoms of yeast infection have gone away. Patient was seen at [facility] on the fourth for complaints of dysuria. She was treated with Keflex and Macrobid for UTI. She also has completed her Gyne-Lotrimin and then was told to not complete her Diflucan until she was done with antibiotics. Patient has a follow-up coming with [facility] in about 6 weeks. For growth scan and she was given a lab slip to do third trimester labs. Diflucan 150 ordered to pharmacy. Continue to get third trimester labs. Discussed labor precautions. Patient has a follow-up growth scan at 6 weeks at [facility]. Discussed labor precautions increase fluids. Return in 3 weeks OB check YESSI Calculator Estimated Delivery Date Method Current WG Current Estimate 10/27/25 LMP (Certain) 28w 5d Other Estimates 10/28/25 Ultrasound #1 28w 4d 10/27/25 Ultrasound #2 28w 5d 10/27/25 Manual 28w 5d final yessi: 10/27 Notes Visit Date: 07/13/25 Last Updated by: Angle Abrams CNM 19 yo lmp: 01/20/25. EDC 10/27/25. sono: 06/29/25: 22w6, 26% Visit Date: 06/28/25 Last Updated by: Angle Abrams CNM OB panel: A+,abs-, rpr;;nr, rub IMM, hbsag-,hiv-,Hc-, NIPT-, carrier screen-,AFP- Visit Date: 06/20/25 Last Updated by: Angle Abrams CNM 19 yo . lmp 01/20/25. edc 10/27/25 Visit Date: 05/09/25 Last Updated by: Angle Abrams CNM A+,abs-, rpr;;nr, rub imm, hbsag-, hiv-, HC-, GC/CT-, NIPT/carrier screen- Visit Date: 04/24/25 Last Updated by: Angle Abrams CNM NIPT:neg/girl, SMA- Visit Date: 04/11/25 Last Updated by: Angle Abrams CNM 19yo, . LMP 01/20. EDC 10/28/25. A+,abs-, rpr;;nr, rub IMM hbsag-,hiv-,HC-, gc/ct done Office Procedures OB Clinic LOC & Office Proc's Nursing/Assessment Patient Status: Established Patient OB Clinic Nursing Assessment: Medication Reconciliation, Update PMH in EMR and Vital Signs OB Clinic Coordination of Care: Education Complex Pt/Fam, Consent,records obtain ed, informed consent, Lab and Imaging orders, Results/Orders obtained and Staff clarify orders Special Needs: Heart tones Established Patient Charge Established Patient Point Assignment: 115 Established Patient Point Charge: EP Level 3 (80-115) Assessment & Plan Diagnosis / Problem List (1) Encounter for supervision of high risk in third trimester, antepartum: Status: Acute Plan Complete all meds. Patient will finish the Diflucan after she finishes her antibiotics for UTI. I called in another order of Diflucan so patient can take it every day for 3 days. Discussed comfort measures for vaginitis avoid feminine products. Patient was reminded to get her third trimester labs. Patient has a follow-up scheduled at [facility] in 7 weeks. Increase fluids. Return in 3 weeks Additional Plan Follow Up: 3 Weeks (obc)
== END 2025-08-09 11:38 | disposition home or self-care (01) ==
LOC: HODSOBC 10:32
PROVIDERS: Supervising Provider Advanced Practice Midwife; Visit Provider Advanced Practice Midwife
DX: O09.893 Supervision of other high risk pregnancies, third trimester (principal); O23.43 Unspecified infection of urinary tract in pregnancy, third trimester; O98.813 Other maternal infectious and parasitic diseases complicating pregnancy, third trimester; B37.31 Acute candidiasis of vulva and vagina; Z3A.28 28 weeks gestation of pregnancy
CPT/HCPCS: 99213; G0463

== ENCOUNTER 2025-08-13 12:26 | Observation (INO) | payer MEDICAID, SELFPAY ==
[2025-08-13] VITALS (10 sets, daily range): BP systolic 118; BP diastolic 56; PULSE 77–98; RESP 18–99; TEMP 36.7; O2SAT 99–100; BMI 28.6
[2025-08-13 13:02] LABS: ROM Kit Exp Date# 1-18-28; ROM Kit Lot # 58104371; ROM Swab Mixed By: SAUCT; Rupture of Fetal Membranes Negative (Negative); Swb Mxed in Solvent 1 min? Yes
--- NOTE | 2025-08-13 13:22 | PC.NURSE ---
discharge instructions reviewed, labor precautions and kick counts reviewed, copies given. pt agrees/understands.
--- NOTE | 2025-08-13 13:45 | PC.NURSE ---
pt requesting an u/s because had 1 sharp pain when she stood up, reassured pt no indication, no ucs noted, ve closed, amnisure negative. reviewed discharge instructions, labor precautions, kick counts, copy given, pt agrees/understands.
== END 2025-08-13 13:45 | disposition home or self-care (01) ==
PROVIDERS: Admitting Provider Obstetrics & Gynecology; Visit Provider Obstetrics & Gynecology
DX: Z34.83 Encounter for supervision of other normal pregnancy, third trimester (principal); Z3A.29 29 weeks gestation of pregnancy
CPT/HCPCS: 59025; 59899; 84112

== ENCOUNTER 2025-08-30 11:07 | Outpatient (AMB) | payer MEDICAID, SELFPAY ==
[2025-08-30 11:15] VITALS: BP 109/70; PULSE 80; RESP 16; TEMP 36.2; O2SAT 98
--- NOTE | 2025-08-30 11:15 | OBCLNT_ITS ---
Vital Signs 08/30/25 11:15 Weight 85.786 kg Weight Measurement Method Standing Scale BP 109/70 Blood Pressure Source Automatic Cuff Blood Pressure Location Left Upper Arm Position Sitting Respiration 16 Pulse 80 Pulse Source Monitor Temp 97.2 F Temp Source Oral Pulse Oximetry (%) 98 Oxygen Delivery Method Room Air Allergies/Home Meds Allergies & Medications Allergies No Known Allergies Allergy (Verified 08/30/25 11:16) Medication Reconciliation clotrimazole 1 % vaginal cream 1 appful vaginal QHS #45 grams 06/29/25 [Rx Confirmed 08/30/25] clotrimazole 2 % vaginal cream (Gyne-Lotrimin) 1 appful vaginal QHS 7 days #1 tube 07/30/25 [Rx Confirmed 08/30/25] ascorbic acid (vitamin C) 1,000 mg capsule 1,000 mg PO BID #60 caps 08/30/25 [Rx] ascorbic acid (vitamin C) 1,000 mg capsule 1,000 mg PO BID #60 caps 08/30/25 [Rx] ferrous sulfate 325 mg (65 mg iron) tablet,delayed release 325 mg PO BID #60 tabs 08/30/25 [Rx] vits no.126-ferrous fum 28 mg iron-folic acid 800 mcg tablet (Classic ) 0.126 - 28 tab PO DAILY 30 days #60 tabs 08/30/25 [Rx] Intake Visit Data Collection New Patient or Established: Established Patient (seen at [facility] within 3 years) Reason for Visit:: OBC Seen by Clinical Staff ONLY (RN/MA): No 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 1. Little interest or pleasure in doing things: not at all 2. Feeling down, depressed, or hopeless: not at all Total score: 0 PHQ-9 3. Trouble falling or staying asleep, or sleeping too much: Not at all 4. Feeling tired or having little energy: Not at all 5. Poor appetite or overeating: Not at all 6. Feeling bad about yourself - or that you are a failure or have let yourself or your family down: Not at all 7. Trouble concentrating on things, such as reading the newspaper or watching television: Not at all 8. Moving or speaking so slowly that other people could have noticed? - Or the opposite - being so fidgety or restless that you have been moving around a lot more than usual: not at all 9. Thoughts that you would be better off or of hurting yourself in some way: Not at all Total score: 0 If you checked off any problems, how difficult have these problems made it for you to do your work, take care of things at home, or get along with other people?: not difficult at all Source: Developed by Drs. Ortiz Yeboah, Nancy Roman, Samir Modi and colleagues, with an educational royer from [employer]. 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 Patient's last. January 12, 2025. EDC October 18, 2025. Patient is 10 weeks by dates. She was given vitamins which she is taking. And started on labetalol 100 mg twice daily for chronic hypertension. Patient stopped taking her labetalol 2 weeks ago because of feeling lightheaded and dizzy. She denies any bleeding at this time but she had spotting a week ago. Vision is clear no headaches no epigastric pain. Today I encouraged patient to restart and continue her labetalol twice daily. Ordered a BP kit so patient can take her blood pressure at home and talk to her about taking her blood pressures while she was at work I gave a note for no use of a ladder and no lifting over 20 pounds for work. Patient wants to continue to work. Discussed danger signs symptoms okay to take Tylenol for headache. OB panel hemoglobin A1c CBC NIPT and carrier screening today. I did a CMP today as well. SAB precautions schedule ultrasound for dating and viability on hCG was done return in 3 weeks for follow-up OB check 19-year-old 2 para 0 for first OBI. Last. January 20, 2025. As admitted due date October 28, 2025. Today OB panel was drawn along with hemoglobin A1c and beta quant. Ultrasound for dates and viability. Discussed weight gain and diet. Walk 40 minutes a day. Return in 4 weeks OB check 04/11/25 -?-?-?-?-?-?-?-?-?-?-?-?- 11w 4d 77.621 kg 120/69 absent unknown 12 156 absent no c/o of Bleeding,leraking or cramps, slight back ache, doing well NUSWAB for gc/ct, nipt and carrier screen, schedule MFM appointment, sab precaution, re-order dating scan, sab precaution, rtc 4 w obc 04/24/25 -?-?-?-?-?-?-?-?-?-?-?-?- 13w 3d 77.678 kg 115/69 absent unknown 13 156 active c/o vaginal pain, discharge, curdy, foul odor, vagina red,swollen flagyl 500 bid x7, gynelotrimin x7, nuswab plus, schedule MFM anatomy scan, sb precaution. comfort measure for vaginitis, iron bid. rtc 4 week obc 05/09/25 -?-?-?-?-?-?-?-?-?-?-?-?- 15w 4d 77.224 kg 119/68 absent unknown 15 160 active vaginitis improved, did not take flagyl, no sab complaints today. light fm vaginitis improved, did not take flagyl, no sab complaints today. light fm. MFM 06/22/25 advised to compl ete flagyl now, discuss compliance with meds. schedule MFM appt, AFP today, discuss SAB precaution, rtc 4 week obc 06/20/25 -?-?-?-?-?-?-?-?-?--?-?-?- 21w 4d absent unknown active patient had virtual from [place], ER visit for vaginitis. tx with vaginal cream x 7 days. reports feeling better. good FM, no VB,leaking, or cramps. heading back for [place] advised to make stops on her way home. increase fluid, review PTL precaution, rtc 4 week advised to make stops on her way home. increase fluid, review PTL precaution, rtc 4 week. MFM appt in 1 week 06/28/25 -?-?-?-?-?-?-?-?-?-?-?-?- 22w 5d 80.399 kg 110/70 absent unknown 22 146 active No OB complaint, denies leaking,bleeding, UC. c/o vaginal discharge, dysuria. But NuSwab plus today. I gave prescription GUIDE VISITOR Lotrimin 1-2 per vagina x 7 days and Flagyl 500 twice daily x 7 days comfort measures for vaginitis. Keep maternal- medicine appointment RTC 2024. And increase fluids. Discussed diet and weight. labor precautions reviewed 07/13/25 -?-?-?-?-?-?-?-?-?-?-?-?- 24w 6d 81.306 kg 107/66 absent unknown 24 146 active No OB complaints. Continued discharge despite being treated for BV and yeast. Reports good movement. Occasional cramp. No other complaints. Patient will be scheduled for growth sono and at 36 weeks. New swab today. I will treat if positive culture. Third trimester labs ordered. Discussed labor precautions. Increase fluids. Comfort measures for vaginitis. Return in 4 weeks for recheck 08/09/25 -?-?-?-?-?-?-?-?-?-?-?-?- 28w 5d 83.688 kg 122/61 absent unknown 28 146 active Patient reports feeling much better. She started the Diflucan and her symptoms of yeast infection have gone away. Patient was seen at [facility] on [facility] for complaints of dysuria. She was treated with Keflex and Macrobid for UTI. She also has completed her Gyne-Lotrimin and then was told to not complete her Diflucan until she was done with antibiotics. Patient has a follow-up coming with [facility] in about 6 weeks. For growth scan and she was given a lab slip to do third trimester labs. Diflucan 150 ordered to pharmacy. Continue to get third trimester labs. Discussed labor precautions. Patient has a follow-up growth scan at 6 weeks at [facility]. Discussed labor precautions increase fluids. Return in 3 weeks OB check 08/30/25 -?-?-?-?-?-?-?-?-?-?-?-?- 31w 5d 85.786 kg 109/70 absent unknown 30 145 active Patient is unable to get iron study labs today because she needs to go to work. I discussed with patient giving IV iron x 2. Patient is unable to go today she says because she needs to go to work. And patient does not take her iron and has not been taking her iron as directed because she says it makes her feel funny. She also ran out of prenatals and stopped taking those because she does not like the way they takes. Denies contractions. Denies leaking. Denies bleeding. Reports good movement tdap, refill iro n. And I refilled vitamins. Discussed with patient importance of taking her iron. Needing green veggies. Increase fluids. Discussed labor precautions. Patient will go into labor and delivery on August 31 for IV iron and complete OB. Return in 2 weeks OB check YESSI Calculator Estimated Delivery Date Method Current WG Current Estimate 10/27/25 LMP (Certain) 31w 5d Other Estimates 10/28/25 Ultrasound #1 31w 4d 10/27/25 Ultrasound #2 31w 5d 10/27/25 Manual 31w 5d final yessi: 10/27 Notes Visit Date: 08/30/25 Last Updated by: Angle Abrams CNM 08/25: hgb: 7.2/26.7/MCV: 70, A1c> 5.5, rpr:nr, 1 hr: 120: IV iron Visit Date: 07/13/25 Last Updated by: Angle Abrams CNM 19 yo lmp: 01/20/25. EDC 10/27/25. sono: 06/29/25: 22w6, 26% Visit Date: 06/28/25 Last Updated by: Angle Abrams CNM OB panel: A+,abs-, rpr;;nr, rub IMM, hbsag-,hiv-,Hc-, NIPT-, carrier screen-,AFP- Visit Date: 06/20/25 Last Updated by: Angle Abrams CNM 19 yo . lmp 01/20/25. edc 10/27/25 Visit Date: 05/09/25 Last Updated by: Angle Abrams CNM A+,abs-, rpr;;nr, rub imm, hbsag-, hiv-, HC-, GC/CT-, NIPT/carrier screen- Visit Date: 04/24/25 Last Updated by: Angle Abrams CNM NIPT:neg/girl, SMA- Visit Date: 04/11/25 Last Updated by: Angle Abrams CNM 19yo, . LMP 01/20. EDC 10/28/25. A+,abs-, rpr;;nr, rub IMM hbsag-,hiv-,HC-, gc/ct done Office Procedures OBC Clinic LOC & Office Proc's Nursing/Assessment Patient Status: Established Patient OB Clinic Nursing Assessment: Medication Reconciliation, Update PMH in EMR and Vital Signs OB Clinic Coordination of Care: Education Complex Pt/Fam, Consent,records obtained, informed consent, Lab and Imaging orders, Results/Orders obtained and Staff clarify orders Special Needs: Heart tones Established Patient Charge Established Patient Point Assignment: 115 Established Patient Point Charge: EP Level 3 (80-115) Immunizations diphth,pertus(acell),tetanus 2.5 Lf unit-8 mcg-5 Lf/0.5mL IM syringe Performing Provider: Angle Abrams CNM Performing Location: [facility] Administered by: Daniela Slater MA on 08/30/25 13:08 2 Dose Route Admin Location Dispensed Lot Number Expiration Date Pack age [facility] [employer] Coord[employer] 0.5 mL IM Left Deltoid 0.5 mL [id number] 10/19/27 [id number] [email or web address] VIS Given Date VIS Provided VIS Publication Date 08/30/25 Single Vaccine 24 Eligibility Eligibility Date Funding Source [facility] Assessment & Plan Diagnosis / Problem List (1) Encounter for supervision of high risk in third trimester, antepartum: Status: Acute (2) Anemia complicating : Status: Acute Qualifiers: Trimester: third trimester Qualified Code(s): O99.013 - Anemia complicating , third trimester Plan Refill iron delayed release. Twice daily. Refill vitamins. Patient scheduled for IV Ferrlecit therapy starting tomorrow. And I gave patient a lab slip to do iron studies. Discussed diet patient's to increase her iron. Discussed labor precautions and kick count. Tdap today. Return in 2 weeks OB to Additional Plan Follow Up: 2 Weeks (obc)
== END 2025-08-30 11:36 | disposition home or self-care (01) ==
LOC: HODSOBC 11:07
PROVIDERS: Supervising Provider Advanced Practice Midwife; Visit Provider Advanced Practice Midwife
DX: O09.893 Supervision of other high risk pregnancies, third trimester (principal); O99.013 Anemia complicating pregnancy, third trimester; Z3A.31 31 weeks gestation of pregnancy; Z23 Encounter for immunization
CPT/HCPCS: 90471; 90715; 99213; G0463

== ENCOUNTER 2025-08-31 10:10 | Outpatient (CLI) | payer MEDICAID, SELFPAY ==
[2025-08-31 10:17] VITALS: BP 116/62; PULSE 82; RESP 18; RESP 99; TEMP 36.6; BMI 29.4
--- NOTE | 2025-08-31 10:19 | XR_ITS ---
Examination: Complete OB ultrasound greater than 14 weeks Date and time of exam: August 31, 2025, 1122 hours INDICATIONS: Labor evaluation, diagnosis maternal anemia Findings: Viable intrauterine single fetus with single amniotic sac Intrauterine presentation cephalic Cardiac motion 141 bpm Placenta posterior maternal right grade 2 Umbilical cord insertion and 3 vessel seen Amniotic fluid index 12.1 cm spine maternal left Cervix 4.3 cm Ovaries obscured by bowel gas. Composite estimated gestational age based on BPD, head circumference, abdominal circumference, femur length is 31 weeks 1 day Estimated weight 1673.8 g. Survey of intracranial anatomy, spinal anatomy, abdominal anatomy, four-chamber heart performed with no abnormalities identified. Impression: Viable intrauterine gestation in cephalic presentation.
[2025-08-31 10:23] VITALS: BP 116/62; PULSE 82
[2025-08-31] MEDS: FERRIC SOD GLUC INJ 125 MG in SODIUM CHLORIDE 0.9% 100 ML 110 MG IV (11:09)
--- NOTE | 2025-08-31 18:59 | PD.LDPN ---
Documentation for date of: 08/31/25 OB Labor Progress Note Pelvic Exam Amniotic membrane status: Intact Status status: Category l Assessment and Plan Comments: Triage encounter Sridevi is a 20yo with SIUP at 31&6wk presenting to L&D for IV iron infusion, NST and ob ultrasound as scheduled by BAILEY Abrams. She notes no painful/regular ctx, no vaginal bleeding, no loss of fluid. Normal movement. PMhx/PNC significant for: -CHTN taking labetalol -Anemia -PNC with BAILEY Abrams ROS negative other than what was described above. Vitals wnl, afebrile General: well developed, well nourished, no acute distress, conversant Cardiac: normal heart rate Lungs: breathing without distress Abdomen: soft, gravid, non-tender, no rebound or guarding Extremities: no edema of BLE NST: Reactive, +accels, no decels, mod kassi [place]: no ctx pattern OB ultrasound: Examination: Complete OB ultrasound greater than 14 weeks Date and time of exam: August 31, 2025, 1122 hours INDICATIONS: Labor evaluation, diagnosis maternal anemia Findings: Viable intrauterine single fetus with single amniotic sac Intrauterine presentation cephalic Cardiac motion 141 bpm Placenta posterior maternal right grade 2 Umbilical cord insertion and 3 vessel seen Amniotic fluid index 12.1 cm spine maternal left Cervix 4.3 cm Ovaries obscured by bowel gas. Composite estimated gestational age based on BPD, head circumference, abdominal circumference, femur length is 31 weeks 1 day Estimated weight 1673.8 g. Survey of intracranial anatomy, spinal anatomy, abdominal anatomy, four-chamber heart performed with no abnormalities identified. Impression: Viable intrauterine gestation in cephalic presentation. Assessment: Sridevi is a 20yo with SIUP at 31&6wk with reassuring status based on NST and OB ultrasound. IV iron infusion completed without issue. Vitals wnl, benign exam. Plan: -Continue routine OB follow up with BAILEY Abrams as scheduled -Return for 2nd scheduled IV iron infusion next Wednesday -Return precautions discussed. Amanda Cheung MD
== END 2025-08-31 12:40 | disposition home or self-care (01) ==
LOC: S4S1 10:14 → S4SX 10:14
PROVIDERS: Referring Provider Obstetrics & Gynecology; Visit Provider Obstetrics & Gynecology
DX: O99.013 Anemia complicating pregnancy, third trimester (principal); D64.9 Anemia, unspecified; Z3A.31 31 weeks gestation of pregnancy
CPT/HCPCS: 59025; 76805; J2916; J7050

== ENCOUNTER 2025-09-16 16:36 | Outpatient (CLI) | payer MEDICAID, SELFPAY ==
[2025-09-16 16:36] VITALS: BP 117/56; PULSE 83; RESP 18; RESP 99; TEMP 36.5
[2025-09-16 16:38] VITALS: BP 117/56; PULSE 83
[2025-09-16] MEDS: FERRIC SOD GLUC INJ 125 MG in SODIUM CHLORIDE 0.9% 100 ML 110 MG IV (17:09)
== END 2025-09-16 18:15 | disposition home or self-care (01) ==
LOC: S4S1 16:37 → S4SX 16:37
PROVIDERS: Referring Provider Advanced Practice Midwife; Visit Provider Advanced Practice Midwife
DX: Z34.83 Encounter for supervision of other normal pregnancy, third trimester (principal); Z3A.34 34 weeks gestation of pregnancy
CPT/HCPCS: 59025; J2916; J7050

== ENCOUNTER 2025-09-18 11:31 | Observation (INO) | payer MEDICAID, SELFPAY ==
[2025-09-18 11:45] VITALS: BP 107/55; PULSE 79; RESP 18; RESP 98; TEMP 36.7; BMI 25.0
[2025-09-18 11:51] VITALS: BP 107/55; PULSE 79
--- NOTE | 2025-09-18 12:06 | XR_ITS ---
Examination: Complete OB ultrasound greater than 14 weeks Date and time of exam: September 18, 2025, 1257 hours INDICATIONS: Vaginal bleeding beginning today. Findings: Viable intrauterine single fetus with single amniotic sac presentation cephalic Cardiac motion 141 bpm Placenta posterior Umbilical cord insertion 3 vessels seen Amniotic fluid index 11.0 cm spine maternal left Cervix 3.3 cm Ovaries obscured by bowel gas Composite estimated gestational age based on BPD, head circumference, abdominal circumference, femur length is 34 weeks 1 day, estimated weight 2323 g. Survey of intracranial anatomy, spinal anatomy, abdominal anatomy, four-chamber heart performed with no abnormalities identified. Impression: Viable intrauterine gestation in cephalic presentation.
== END 2025-09-18 14:55 | disposition home or self-care (01) ==
PROVIDERS: Admitting Provider Obstetrics & Gynecology; PCP Family Medicine; Visit Provider Obstetrics & Gynecology
DX: O46.93 Antepartum hemorrhage, unspecified, third trimester (principal); Z3A.34 34 weeks gestation of pregnancy
CPT/HCPCS: 59025; 59899; 76805

== ENCOUNTER 2025-09-25 11:23 | Outpatient (AMB) | payer MEDICAID, SELFPAY ==
[2025-09-25 11:29] VITALS: BP 101/65; PULSE 86; RESP 18; TEMP 36.5; O2SAT 98; BMI 30.2
--- NOTE | 2025-09-25 11:29 | OBCLNT_ITS ---
Vital Signs 09/25/25 11:29 Height 1.7 m Height Method Stated Weight 87.317 kg Weight Measurement Method Standing Scale BMI 30.2 BP 101/65 Blood Pressure Source Automatic Cuff Blood Pressure Location Right Upper Arm Position Sitting Respiration 18 Pulse 86 Pulse Source Monitor Temp 97.7 F Temp Source Temporal Artery Scan Pulse Oximetry (%) 98 Oxygen Delivery Method Room Air Allergies/Home Meds Allergies & Medications Allergies No Known Allergies Allergy (Verified 09/25/25 11:30) Medication Reconciliation ferrous sulfate 325 mg (65 mg iron) tablet,delayed release 325 mg PO BID #60 t abs 08/30/25 [Rx Confirmed 09/25/25] vits no.126-ferrous fum 28 mg iron-folic acid 800 mcg tablet (Classic ) 0.126 - 28 tab PO DAILY 30 days #60 tabs 08/30/25 [Rx Confirmed 09/25/25] Intake Visit Data Collection New Patient or Established: Established Patient (seen at [facility] within 3 years) Reason for Visit:: OBC Seen by Clinical Staff ONLY (RN/MA): No 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 Do You Feel Safe at Home: Yes Authorities Contacted: N/A PCP or OBGYN visit in last 3 months: Yes Date of Last PCP or OBGYN visit: 09/18/25 Hx Now: Yes Are you currently on any form of Control: No Pain Present Currently: No Pain Scale Used: Oliver-Meza/Numerical Pain scale:: 0 Smoking Status Smoking Status: Never smoker Immunizations Flu Vaccine in the Last 12 Months: No Flu Vaccine Exclusion Criteria: No Exclusion Criteria Questionnaires Covid-19 Vaccine Questionnaire Has patient been vacinated for Covid-19 Have you been vacinated for Covid-19: No PHQ-9 PHQ-2 Over the last 2 weeks, how often have you been bothered by any of the following problems? 1. Little interest or pleasure in doing things: not at all 2. Feeling down, depressed, or hopeless: not at all Total score: 0 PHQ-9 3. Trouble falling or staying asleep, or sleeping too much: Not at all 4. Feeling tired or having little energy: Not at all 5. Poor appetite or overeating: Not at all 6. Feeling bad about yourself - or that you are a failure or have let yourself or your family down: Not at all 7. Trouble concentrating on things, such as reading the newspaper or watching television: Not at all 8. Moving or speaking so slowly that other people could have noticed? - Or the opposite - being so fidgety or restless that you have been moving around a lot more than usual: not at all 9. Thoughts that you would be better off or of hurting yourself in some way: Not at all Total score: 0 If you checked off any problems, how difficult have these problems made it for you to do your work, take care of things at home, or get along with other people?: not difficult at all Source: Developed by Drs. Ortiz Yeboah, Nancy Roman, Samir Modi and colleagues, with an educational royer from [employer]. 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 Patient's last. January 12, 2025. EDC October 18, 2025. Patient is 10 weeks by dates. She was given vitamins which she is taking. And started on labetalol 100 mg twice daily for chronic hypertension. Patient stopped taking her labetalol 2 weeks ago because of feeling lightheaded and dizzy. She denies any bleeding at this time but she had spotting a week ago. Vision is clear no headaches no epigastric pain. Today I encouraged patient to restart and continue her labetalol twice daily. Ordered a BP kit so patient can take her blood pressure at home and talk to her about taking her blood pressures while she was at work I gave a note for no use of a ladder and no lifting over 20 pounds for work. Patient wants to continue to work. Discussed danger signs symptoms okay to take Tylenol for headache. OB panel hemoglobin A1c CBC NIPT and carrier screening today. I did a CMP today as well. SAB precautions schedule ultrasound for dating and viability on hCG was done return in 3 weeks for follow-up OB check 19-year-old 2 para 0 for first OBI. Last. January 20, 2025. As admitted due date October 28, 2025. Today OB panel was drawn along with hemoglobin A1c and beta quant. Ultrasound for dates and viability. Discussed weight gain and diet. Walk 40 minutes a day. Return in 4 weeks OB check 04/11/25 -?-?-?-?-?-?-?-?-?-?-?-?- 11w 4d 77.621 kg 120/69 absent unknown 12 156 absent no c/o of Bleeding,leraking or cramps, slight back ache, doing well NUSWAB for gc/ct, nipt and carrier screen, schedule MFM appointment, sab precaution, re-order dating scan, sab precaution, rtc 4 w ob 04/24/25 -?-?-?-?-?-?-?-?-?-?-?-?- 13w 3d 77.678 kg 115/69 absent unknown 13 156 active c/o vaginal pain, discharge, curdy, foul odor, vagina red,swollen flagyl 500 bid x7, gynelotrimin x7, nuswab plus, schedule MFM anatomy scan, sb precaution. comfort measure for vaginitis, iron bid. rtc 4 week obc 05/09/25 -?-?-?-?-?-?-?-?-?-?-?-?- 15w 4d 77.224 kg 119/68 absent unknown 15 160 active vaginitis improved, did not take flagyl, no sab complaints today. light fm vaginitis improved, did not take flagyl, no sab complaints today. light fm. [facility] 06/22/25 advised to compl ete flagyl now, discuss compliance with meds. schedule MFM appt, AFP today, discuss SAB precaution, rtc 4 week [facility] 06/20/25 -?-?-?-?-?-?-?-?-?-?-?-?- 21w 4d absent unknown active patient had virtual from [place], ER visit for vaginitis. tx with vaginal cream x 7 days. reports feeling better. good FM, no VB,leaking, or cramps. heading back for [place] advised to make stops on her way home. increase fluid, review PTL precaution, rtc 4 week advised to make stops on her way home. increase fluid, review PTL precaution, rtc 4 week. MFM appt in 1 week 06/28/25 -?-?-?-?-?-?-?-?-?-?-?-?- 22w 5d 80.399 kg 110/70 absent unknown 22 146 active No OB complaint, denies leaking,bleeding, UC. c/o vaginal discharge, dysuria. But NuSwab plus today. 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 Keep maternal- medicine appointment RTC 2024. And increase fluids. Discussed diet and weight. labor precautions reviewed 07/13/25 -?-?-?-?-?-?-?-?-?-?-?-?- 24w 6d 81.306 kg 107/66 absent unknown 24 146 active No OB complaints. Continued discharge despite being treated for BV and yeast. Reports good movement. Occasional cramp. No other complaints. Patient will be scheduled for growth sono and at 36 weeks. New swab today. I will treat if positive culture. Third trimester labs ordered. Discussed labor precautions. Increase fluids. Comfort measures for vaginitis. Return in 4 weeks for recheck 08/09/25 -?-?-?-?-?-?-?-?-?-?-?-?- 28w 5d 83.688 kg 122/61 absent unknown 28 146 active Patient reports feeling much better. She started the Diflucan and her symptoms of yeast infection have gone away. Patient was seen at [facility] on the fourth for complaints of dysuria. She was treated with Keflex and Macrobid for UTI. She also has completed her Gyne-Lotrimin and then was told to not complete her Diflucan until she was done with antibiotics. Patient has a follow-up coming with [facility] in about 6 weeks. For growth scan and she was given a lab slip to do third trimester labs. Diflucan 150 ordered to pharmacy. Continue to get third trimester labs. Discussed labor precautions. Patient has a follow-up growth scan at 6 weeks at [facility]. Discussed labor precautions increase fluids. Return in 3 weeks OB check 08/30/25 -?-?-?-?-?-?-?-?-?-?-?-?- 31w 5d 85.786 kg 109/70 absent unknown 30 145 active Patient is unable to get iron study labs today because she needs to go to work. I discussed with patient giving IV iron x 2. Patient is unable to go today she says because she needs to go to work. And patient does not take her iron and has not been taking her iron as directed because she says it makes her feel funny. She also ran out of prenatals and stopped taking those because she does not like the way they takes. Denies contractions. Denies leaking. Denies bleeding. Reports good movement tdap, refill iro n. And I refilled vitamins. Discussed with patient importance of taking her iron. Needing green veggies. Increase fluids. Discussed labor precautions. Patient will go into labor and delivery on August 31 for IV iron and complete OB. Return in 2 weeks OB check 09/25/25 -?-?-?-?-?-?-?-?-?-?-?-?- 35w 3d 87.317 kg 101/65 absent cephalic 35 145 active Complains of left- sided ligament pain. Reports movement. Denies leaking or bleeding. Denies contractions. Patient would like to take oral iron once a day. And she completed the IV iron. Complains of left-sided liga ment pain. Reports movement. Denies leaking or bleeding. Denies contractions. Patient would like to take oral iron once a day. And she completed the IV iron. Extinct 2024. IV iron x 2. Continue p.o.iron once daily. Increase iron foods. CBC today. GBS today. Kick count twice a day. And return week OB check. Comfort measures for ligament pain IV iron x 2. Continue p.o.i aimee once daily. Increase iron foods. CBC today. GBS today. Kick count twice a day. And return week OB check. Comfort measures for ligament pain. Last date of work will be October 06, 2025. Start disability October 07, 2000 YESSI Calculator Estimated Delivery Date Method Current WG Current Estimate 10/27/25 LMP (Certain) 35w 3d Other Estimates 10/28/25 Ultrasound #1 35w 2d 10/27/25 Ultrasound #2 35w 3d 10/27/25 Manual 35w 3d final yessi: 10/27 Notes Visit Date: 08/30/25 Last Updated by: Angle Abrams CNM 08/25: hgb: 7.2/26.7/MCV: 70, A1c> 5.5, rpr:nr, 1 hr: 120: IV iron Visit Date: 07/13/25 Last Updated by: Angle Abrams CNM 19 yo lmp: 01/20/25. EDC 10/27/25. sono: 06/29/25: 22w6, 26% Visit Date: 06/28/25 Last Updated by: Angle Abrams CNM OB panel: A+,abs-, rpr;;nr, rub IMM, hbsag-,hiv-,Hc-, NIPT-, carrier screen-,AFP- Visit Date: 06/20/25 Last Updated by: Angle Abrams CNM 19 yo . lmp 01/20/25. edc 10/27/25 Visit Date: 05/09/25 Last Updated by: Angle Abrams CNM A+,abs-, rpr;;nr, rub imm, hbsag-, hiv-, HC-, GC/CT-, NIPT/carrier screen- Visit Date: 04/24/25 Last Updated by: Angle Abrams CNM NIPT:neg/girl, SMA- Visit Date: 04/11/25 Last Updated by: Angle Abrams CNM 19yo, . LMP 01/20. EDC 10/28/25. A+,abs-, rpr;;nr, rub IMM hbsag-,hiv-,HC-, gc/ct done Office Procedures OBC Clinic LOC & Office Proc's Nursing/Assessment Patient Status: Established Patient OB Clinic Nursing Assessment: Medication Reconciliation, Update PMH in EMR and Vital Signs OB Clinic Coordination of Care: Complex Care and Chronic Disease 1-5, Education Complex Pt/Fam, Consent,records obtained, informed consent, Lab and Imaging orders, Results/Orders obtained and Staff clarify orders Special Needs: Heart tones Miscellaneous Interventions: Culture Specimen Collection Established Patient Charge Established Patient Point Assignment: 155 Established Patient Point Charge: EP Level 4 (120-155) Assessment & Plan Diagnosis / Problem List (1) Encounter for supervision of high risk in third trimester, antepartum: Status: Acute Plan Kick count twice a day reviewed with patient. Discussed labor precautions and labor precautions. Discussed comfort measures for ligament pain. GBS today. Iron once a day and increase iron foods. Return in a week OB check. Patient will start disability October 07, 2025 Additional Plan Follow Up: 2 Weeks (obc)
== END 2025-09-25 11:49 | disposition home or self-care (01) ==
LOC: HODSOBC 11:23
PROVIDERS: Supervising Provider Advanced Practice Midwife; Visit Provider Advanced Practice Midwife
DX: O09.93 Supervision of high risk pregnancy, unspecified, third trimester (principal); Z3A.35 35 weeks gestation of pregnancy; Z36.85 Encounter for antenatal screening for Streptococcus B
CPT/HCPCS: 99214; G0463

== ENCOUNTER 2025-10-04 23:17 | Observation (INO) | payer MEDICAID, SELFPAY ==
[2025-10-04 23:30] VITALS: BMI 31.3
[2025-10-04 23:50] VITALS: BP 121/57; PULSE 80; RESP 18; RESP 99; TEMP 37.1
[2025-10-04 23:53] VITALS: BP 121/57; PULSE 80
== END 2025-10-05 00:40 | disposition home or self-care (01) ==
PROVIDERS: Admitting Provider Obstetrics & Gynecology; Visit Provider Obstetrics & Gynecology
DX: O36.8130 Decreased fetal movements, third trimester, not applicable or unspecified (principal); Z3A.36 36 weeks gestation of pregnancy
CPT/HCPCS: 59025; 59899

== ENCOUNTER 2025-10-10 13:12 | Outpatient (AMB) | payer MEDICAID, SELFPAY ==
[2025-10-10 13:28] VITALS: BP 119/72; PULSE 97; RESP 18; TEMP 36.7; O2SAT 97; BMI 30.9
--- NOTE | 2025-10-10 13:28 | OBCLNT_ITS ---
Vital Signs 10/10/25 13:28 Height 1.7 m Height Method Stated Weight 89.528 kg Weight Measurement Method Standing Scale BMI 30.9 BP 119/72 Blood Pressure Source Automatic Cuff Blood Pressure Location Right Upper Arm Position Sitting Respiration 18 Pulse 97 Pulse Source Monitor Temp 98.0 F Temp Source Temporal Artery Scan Pulse Oximetry (%) 97 Oxygen Delivery Method Room Air Allergies/Home Meds Allergies & Medications Allergies No Known Allergies Allergy (Verified 10/10/25 13:29) Medication Reconciliation ferrous sulfate 325 mg (65 mg iron) tablet,delayed release 325 mg PO BID #60 t abs 08/30/25 [Rx Confirmed 10/10/25] vits no.126-ferrous fum 28 mg iron-folic acid 800 mcg tablet (Classic ) 0.126 - 28 tab PO DAILY 30 days #60 tabs 08/30/25 [Rx Confirmed 10/10/25] Immunizations Immunizations Flu Vaccine in the Last 12 Months: No Flu Vaccine Exclusion Criteria: No Exclusion Criteria Care OB Visit Log OB Flowsheet Initial Weight: Not Recorded Date -?-?-?-?-?-?-?-?-?-?-?-?- EGA Weight BP Alb Glu CTX Pres Fundal ht FHR Mov Dilation Station Effacement Hx Notes Visit Note 03/21/25 -?-?-?-?-?-?-?-?-?--?-?-?- 8w 4d 78.471 kg 122/71 absent 8.0 absent 30-year-old 3 para 2 with existing chronic hypertension. Patient's last. January 12, 2025. EDC October 18, 2025. Patient is 10 weeks by dates. She was given vitamins which she is taking. And started on labetalol 100 mg twice daily for chronic hypertension. Patient stopped taking her labetalol 2 weeks ago because of feeling lightheaded and dizzy. She denies any bleeding at this time but she had spotting a week ago. Vision is clear no headaches no epigastric pain. Today I encouraged patient to restart and continue her labetalol twice daily. Ordered a BP kit so patient can take her blood pressure at home and talk to her about taking her blood pressures while she was at work I gave a note for no use of a ladder and no lifting over 20 pounds for work. Patient wants to continue to work. Discussed danger signs symptoms okay to take Tylenol for headache. OB panel hemoglobin A1c CBC NIPT and carrier screening today. I did a CMP today as well. SAB precautions schedule ultrasound for dating and viability on hCG was done return in 3 weeks for follow-up OB check 19-year-old 2 para 0 for first OBI. Last. January 20, 2025. As admitted due date October 28, 2025. Today OB panel was drawn along with hemoglobin A1c and beta quant. Ultrasound for dates and viability. Discussed weight gain and diet. Walk 40 minutes a day. Return in 4 weeks OB check 04/11/25 -?-?-?-?-?-?-?-?-?-?-?-?- 11w 4d 77.621 kg 120/69 absent unknown 12 156 absent no c/o of Bleeding,leraking or cramps, slight back ache, doing well NUSWAB for gc/ct, nipt and carrier screen, schedule MFM appointment, sab precaution, re-order dating scan, sab precaution, rtc 4 w [facility] 04/24/25 -?-?-?-?-?-?-?-?-?-?-?-?- 13w 3d 77.678 kg 115/69 absent unknown 13 156 active c/o vaginal pain, discharge, curdy, foul odor, vagina red,swollen flagyl 500 bid x7, gynelotrimin x7, nuswab plus, schedule MFM anatomy scan, sb precaution. comfort measure for vaginitis, iron bid. rtc 4 week obc 05/09/25 -?-?-?-?-?-?-?-?-?-?-?-?- 15w 4d 77.224 kg 119/68 absent unknown 15 160 active vaginitis improved, did not take flagyl, no sab complaints today. light fm vaginitis improved, did not take flagyl, no sab complaints today. light fm. MFM 06/22/25 advised to compl ete flagyl now, discuss compliance with meds. schedule MFM appt, AFP today, discuss SAB precaution, rtc 4 week obc 06/20/25 -?-?-?-?-?-?-?-?-?-?-?-?- 21w 4d absent unknown active patient had virtual from [place], ER visit for vaginitis. tx with vaginal cream x 7 days. reports feeling better. good FM, no VB,leaking, or cramps. heading back for [place] advised to make stops on her way home. increase fluid, review PTL precaution, rtc 4 week advised to make stops on her way home. increase fluid, review PTL precaution, rtc 4 week. MFM appt in 1 week 06/28/25 -?-?-?-?-?-?-?-?-?-?-?-?- 22w 5d 80.399 kg 110/70 absent unknown 22 146 active No OB complaint, denies leaking,bleeding, UC. c/o vaginal discharge, dysuria. But NuSwab plus today. 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 Keep maternal- medicine appointment RTC 2024. And increase fluids. Discussed diet and weight. labor precautions reviewed 07/13/25 -?-?-?-?-?-?-?-?-?-?-?-?- 24w 6d 81.306 kg 107/66 absent unknown 24 146 active No OB complaints. Continued discharge despite being treated for BV and yeast. Reports good movement. Occasional cramp. No other complaints. Patient will be scheduled for growth sono and at 36 weeks. New swab today. I will treat if positive culture. Third trimester labs ordered. Discussed labor precautions. Increase fluids. Comfort measures for vaginitis. Return in 4 weeks for recheck 08/09/25 -?-?-?-?-?-?-?-?-?-?-?-?- 28w 5d 83.688 kg 122/61 absent unknown 28 146 active Patient reports feeling much better. She started the Diflucan and her symptoms of yeast infection have gone away. Patient was seen at [facility] on the fourth for complaints of dysuria. She was treated with Keflex and Macrobid for UTI. She also has completed her Gyne-Lotrimin and then was told to not complete her Diflucan until she was done with antibiotics. Patient has a follow-up coming with [facility] in about 6 weeks. For growth scan and she was given a lab slip to do third trimester labs. Diflucan 150 ordered to pharmacy. Continue to get third trimester labs. Discussed labor precautions. Patient has a follow-up growth scan at 6 weeks at [facility]. Discussed labor precautions increase fluids. Return in 3 weeks OB check 08/30/25 -?-?-?-?-?-?-?-?-?-?-?-?- 31w 5d 85.786 kg 109/70 absent unknown 30 145 active Patient is unable to get iron study labs today because she needs to go to work. I discussed with patient giving IV iron x 2. Patient is unable to go today she says because she needs to go to work. And patient does not take her iron and has not been taking her iron as directed because she says it makes her feel funny. She also ran out of prenatals and stopped taking those because she does not like the way they takes. Denies contractions. Denies leaking. Denies bleeding. Reports good movement tdap, refill iro n. And I refilled vitamins. Discussed with patient importance of taking her iron. Needing green veggies. Increase fluids. Discussed labor precautions. Patient will go into labor and delivery on August 31 for IV iron and complete OB. Return in 2 weeks OB check 09/25/25 -?-?-?-?-?-?-?-?-?-?-?-?- 35w 3d 87.317 kg 101/65 absent cephalic 35 145 active Complains of left- sided ligament pain. Reports movement. Denies leaking or bleeding. Denies contractions. Patient would like to take oral iron once a day. And she completed the IV iron. Complains of left-sided liga ment pain. Reports movement. Denies leaking or bleeding. Denies contractions. Patient would like to take oral iron once a day. And she completed the IV iron. Extinct 2024. IV iron x 2. Continue p.o.iron once daily. Increase iron foods. CBC today. GBS today. Kick count twice a day. And return week OB check. Comfort measures for ligament pain IV iron x 2. Continue p.o.i aimee once daily. Increase iron foods. CBC today. GBS today. Kick count twice a day. And return week OB check. Comfort measures for ligament pain. Last date of work will be October 06, 2025. Start disability October 07, 2000 10/10/25 -?-?-?-?-?-?-?-?-?-?-?-?- 37w 4d 89.528 kg 119/72 absent cephalic 36 145 active after IV iron: 07/19, gbs-, Fetus active per patient. D enies leaking, bleeding, contractions. Complains of a headache. Iron increased 07/19 after IV transfusions of iron. GBS negative. Urine dip protein. Discussed labor precautions. Kick count. Discussed danger signs symptoms ER precautions. Continue p.o. iron. And return in a week OB check YESSI Calculator Estimated Delivery Date Method Current WG Current Estimate 10/27/25 LMP (Certain) 37w 4d Other Estimates 10/28/25 Ultrasound #1 37w 3d 10/27/25 Ultrasound #2 37w 4d 10/27/25 Manual 37w 4d final yessi: 10/27 Notes Visit Date: 10/10/25 Last Updated by: Angle Abrams CNM 10/09: 07/19, GBS-, 10/02: sono: 36.3, efw;49%, normal ZAYRA, no previa UA: negative Visit Date: 08/30/25 Last Updated by: Angle Abrams CNM 08/25: hgb: 7.2/26.7/MCV: 70, A1c> 5.5, rpr:nr, 1 hr: 120: IV iron Visit Date: 07/13/25 Last Updated by: Angle Abrams CNM 19 yo lmp: 01/20/25. EDC 10/27/25. sono: 06/29/25: 22w6, 26% Visit Date: 06/28/25 Last Updated by: Angle Abrams CNM OB panel: A+,abs-, rpr;;nr, rub IMM, hbsag-,hiv-,Hc-, NIPT-, carrier screen-,AFP- Visit Date: 06/20/25 Last Updated by: Angle Abrams CNM 19 yo . lmp 01/20/25. edc 10/27/25 Visit Date: 05/09/25 Last Updated by: Angle Abrams CNM A+,abs-, rpr;;nr, rub imm, hbsag-, hiv-, HC-, GC/CT-, NIPT/carrier screen- Visit Date: 04/24/25 Last Updated by: Angle Abrams CNM NIPT:neg/girl, SMA- Visit Date: 04/11/25 Last Updated by: Angle Abrams CNM 19yo, . LMP 01/20. EDC 10/28/25. A+,abs-, rpr;;nr, rub IMM hbsag-,hiv-,HC-, gc/ct done Office Procedures OBC Clinic LOC & Office Proc's Nursing/Assessment Patient Status: Established Patient OB Clinic Nursing Assessment: Medication Reconciliation, Update PMH in EMR and Vital Signs OB Clinic Coordination of Care: Complex Care and Chronic Disease 1-5, Education Complex Pt/Fam, Consent,records obtained, informed consent, Lab and Imaging orders, Results/Orders obtained and Staff clarify orders Special Needs: Heart tones Established Patient Charge Established Patient Point Assignment: 140 Established Patient Point Charge: EP Level 4 (120-155) Assessment & Plan Diagnosis / Problem List (1) Encounter for supervision of high risk in third trimester, antepartum: Status: Acute Plan Urine dip today. Increase fluids. Discussed PIH precautions. Discussed labor precautions kick count. Discussed ER precautions. Patient will return in a week OB check Additional Plan Follow Up: 1 Week (obc)
== END 2025-10-10 14:10 | disposition home or self-care (01) ==
LOC: HODSOBC 13:12
PROVIDERS: Supervising Provider Advanced Practice Midwife; Visit Provider Advanced Practice Midwife
DX: O09.893 Supervision of other high risk pregnancies, third trimester (principal); O99.891 Other specified diseases and conditions complicating pregnancy; R51.9 Headache, unspecified; Z3A.37 37 weeks gestation of pregnancy
CPT/HCPCS: 99214; G0463

== ENCOUNTER 2025-10-17 14:59 | Outpatient (AMB) | payer MEDICAID, SELFPAY ==
[2025-10-17 15:09] VITALS: BP 120/71; PULSE 98; RESP 18; TEMP 36.8; O2SAT 98; BMI 30.9
--- NOTE | 2025-10-17 15:09 | OBCLNT_ITS ---
Vital Signs 10/17/25 15:09 Height 1.7 m Height Method Stated Weight 89.584 kg Weight Measurement Method Standing Scale BMI 30.9 BP 120/71 Blood Pressure Source Automatic Cuff Blood Pressure Location Right Upper Arm Position Sitting Respiration 18 Pulse 98 Pulse Source Monitor Temp 98.2 F Temp Source Oral Pulse Oximetry (%) 98 Oxygen Delivery Method Room Air Allergies/Home Meds Allergies & Medications Allergies No Known Allergies Allergy (Verified 10/17/25 15:10) Medication Reconciliation ferrous sulfate 325 mg (65 mg iron) tablet,delayed release 325 mg PO BID #60 tabs 08/30/25 [Rx Confirmed 10/17/25] vits no.126-ferrous fum 28 mg iron-folic acid 800 mcg tablet (Classic ) 0.126 - 28 tab PO DAILY 30 days #60 tabs 08/30/25 [Rx Confirmed 10/17/25] Immunizations Immunizations Flu Vaccine in the Last 12 Months: No Flu Vaccine Exclusion Criteria: No Exclusion Criteria Care OB Visit Log OB Flowsheet Initial Weight: Not Recorded Date -?-?-?-?-?-?-?-?-?-?-?-?- EGA Weight BP Alb Glu CTX Pres Fundal ht FHR Mov Dilation Station Effacement Hx Notes Visit Note 03/21/25 -?-?-?-?-?-?-?-?-?-?-?-?- 8w 4d 78.471 kg 122/71 absent 8.0 absent 30-year-old 3 para 2 with existing chronic hypertension. Patient's last. January 12, 2025. EDC October 18, 2025. Patient is 10 weeks by dates. She was given vitamins which she is taking. And started on labetalol 100 mg twice daily for chronic hypertension. Patient stopped taking her labetalol 2 weeks ago because of feeling lightheaded and dizzy. She denies any bleeding at this time but she had spotting a week ago. Vision is clear no headaches no epigastric pain. Today I encouraged patient to restart and continue her labetalol twice daily. Ordered a BP kit so patient can take her blood pressure at home and talk to her about taking her blood pressures while she was at work I gave a note for no use of a ladder and no lifting over 20 pounds for work. Patient wants to continue to work. Discussed danger signs symptoms okay to take Tylenol for headache. OB panel hemoglobin A1c CBC NIPT and carrier screening today. I did a CMP today as well. SAB precautions schedule ultrasound for dating and viability on hCG was done return in 3 weeks for follow-up OB check 19-year-old 2 para 0 for first OBI. Last. January 20, 2025. As admitted due date October 28, 2025. Today OB panel was drawn along with hemoglobin A1c and beta quant. Ultrasound for dates and viability. Discussed weight gain and diet. Walk 40 minutes a day. Return in 4 weeks OB check 04/11/25 -?-?-?-?-?-?-?-?-?-?-?-?- 11w 4d 77.621 kg 120/69 absent unknown 12 156 absent no c/o of Bleeding,leraking or cramps, slight back ache, doing well NUSWAB for gc/ct, nipt and carrier screen, schedule MFM appointment, sab precaution, re-order dating scan, sab precaution, rtc 4 w [facility] 04/24/25 -?-?-?-?-?-?-?-?-?-?-?-?- 13w 3d 77.678 kg 115/69 absent unknown 13 156 active c/o vaginal pain, discharge, curdy, foul odor, vagina red,swollen flagyl 500 bid x7, gynelotrimin x7, nuswab plus, schedule MFM anatomy scan, sb precaution. comfort measure for vaginitis, iron bid. rtc 4 week obc 05/09/25 -?-?-?-?-?-?-?-?-?-?-?-?- 15w 4d 77.224 kg 119/68 absent unknown 15 160 active vaginitis improved, did not take flagyl, no sab complaints today. light fm vaginitis improved, did not take flagyl, no sab complaints today. light fm. MFM 06/22/25 advised to compl ete flagyl now, discuss compliance with meds. schedule MFM appt, AFP today, discuss SAB precaution, rtc 4 week obc 06/20/25 -?-?-?-?-?-?-?-?-?-?-?-?- 21w 4d absent unknown active patient had virtual from [place], ER visit for vaginitis. tx with vaginal cream x 7 days. reports feeling better. good FM, no VB,leaking, or cramps. heading back for [place] advised to make stops on her way home. increase fluid, review PTL precaution, rtc 4 week advised to make stops on her way home. increase fluid, review PTL precaution, rtc 4 week. MFM appt in 1 week 06/28/25 -?-?-?-?-?-?-?-?-?-?-?-?- 22w 5d 80.399 kg 110/70 absent unknown 22 146 active No OB complaint, denies leaking,bleeding, UC. c/o vaginal discharge, dysuria. But NuSwab plus today. I gave prescription PORTFOLIO ADMINISTRATOR Lotrimin 1-2 per vagina x 7 days and Flagyl 500 twice daily x 7 days comfort measures for vaginitis. Keep maternal- medicine appointment RTC 2024. And increase fluids. Discussed diet and weight. labor precautions reviewed 07/13/25 -?-?-?-?-?-?-?-?-?-?-?-?- 24w 6d 81.306 kg 107/66 absent unknown 24 146 active No OB complaints. Continued discharge despite being treated for BV and yeast. Reports good movement. Occasional cramp. No other complaints. Patient will be scheduled for growth sono and at 36 weeks. New swab today. I will treat if positive culture. Third trimester labs ordered. Discussed labor precautions. Increase fluids. Comfort measures for vaginitis. Return in 4 weeks for recheck 08/09/25 -?-?-?-?-?-?-?-?-?-?-?-?- 28w 5d 83.688 kg 122/61 absent unknown 28 146 active Patient reports feel ing much better. She started the Diflucan and her symptoms of yeast infection have gone away. Patient was seen at [facility] on the fourth for complaints of dysuria. She was treated with Keflex and Macrobid for UTI. She also has completed her Gyne-Lotrimin and then was told to not complete her Diflucan until she was done with antibiotics. Patient has a follow-up coming with [facility] in about 6 weeks. For growth scan and she was given a lab slip to do third trimester labs. Diflucan 150 ordered to pharmacy. Continue to get third trimester labs. Discussed labor precautions. Patient has a follow-up growth scan at 6 weeks at [facility]. Discussed labor precautions increase fluids. Return in 3 weeks OB check 08/30/25 -?-?-?-?-?-?-?-?-?-?-?-?- 31w 5d 85.786 kg 109/70 absent unknown 30 145 active Patient is unable to get iron study labs today because she needs to go to work. I discussed with patient giving IV iron x 2. Patient is unable to go today she says because she needs to go to work. And patient does not take her iron and has not been taking her iron as directed because she says it makes her feel funny. She also ran out of prenatals and stopped taking those because she does not like the way they takes. Denies contractions. Denies leaking. Denies bleeding. Reports good movement tdap, refill iro n. And I refilled vitamins. Discussed with patient importance of taking her iron. Needing green veggies. Increase fluids. Discussed labor precautions. Patient will go into labor and delivery on August 31 for IV iron and complete OB. Return in 2 weeks OB check 09/25/25 -?-?-?-?-?-?-?-?-?-?-?-?- 35w 3d 87.317 kg 101/65 absent cephalic 35 145 active Complains of left- sided ligament pain. Reports movement. Denies leaking or bleeding. Denies contractions. Patient would like to take oral iron once a day. And she completed the IV iron. Complains of left-sided liga ment pain. Reports movement. Denies leaking or bleeding. Denies contractions. Patient would like to take oral iron once a day. And she completed the IV iron. Extinct 2024. IV iron x 2. Continue p.o.iron once daily. Increase iron foods. CBC today. GBS today. Kick count twice a day. And return week OB check. Comfort measures for ligament pain IV iron x 2. Continue p.o.i aimee once daily. Increase iron foods. CBC today. GBS today. Kick count twice a day. And return week OB check. Comfort measures for ligament pain. Last date of work will be October 06, 2025. Start disability October 07, 2000 10/10/25 -?-?-?-?-?-?-?-?-?-?-?-?- 37w 4d 89.528 kg 119/72 absent cephalic 36 145 active after IV iron: 07/19, gbs-, Fetus active per patient. D enies leaking, bleeding, contractions. Complains of a headache. Iron increased 07/19 after IV transfusions of iron. GBS negative. Urine dip protein. Discussed labor precautions. Kick count. Discussed danger signs symptoms ER precautions. Continue p.o. iron. And return in a week OB check 10/17/25 -?-?-?-?-?-?-?-?-?-?-?-?- 38w 4d 89.584 kg 120/71 absent cephalic 37 145 active Fetus active per patient. Denies leaking, bleeding no contractions. Complains of slight temporal headache Discussed labo r precautions. Comfort measures for headache. Discussed PIH precautions and danger signs symptoms return a week OB check YESSI Calculator Estimated Delivery Date Method Current WG Current Estimate 10/27/25 LMP (Certain) 38w 4d Other Estimates 10/28/25 Ultrasound #1 38w 3d 10/27/25 Ultrasound #2 38w 4d 10/27/25 Manual 38w 4d final yessi: 10/27 Notes Visit Date: 10/10/25 Last Updated by: Angle Abrams CNM 10/09: 07/19, GBS-, 10/02: sono: 36.3, efw;49%, normal ZAYRA, no previa UA: negative Visit Date: 08/30/25 Last Updated by: Angle Abrams CNM 08/25: hgb: 7.2/26.7/MCV: 70, A1c> 5.5, rpr:nr, 1 hr: 120: IV iron Visit Date: 07/13/25 Last Updated by: Angle Abrams CNM 19 yo lmp: 01/20/25. EDC 10/27/25. sono: 06/29/25: 22w6, 26% Visit Date: 06/28/25 Last Updated by: Angle Abrams CNM OB panel: A+,abs-, rpr;;nr, rub IMM, hbsag-,hiv-,Hc-, NIPT-, carrier screen-,AFP- Visit Date: 06/20/25 Last Updated by: Angle Abrams CNM 19 yo . lmp 01/20/25. edc 10/27/25 Visit Date: 05/09/25 Last Updated by: Angle Abrams CNM A+,abs-, rpr;;nr, rub imm, hbsag-, hiv-, HC-, GC/CT-, NIPT/carrier screen- Visit Date: 04/24/25 Last Updated by: Angle Abrams CNM NIPT:neg/girl, SMA- Visit Date: 04/11/25 Last Updated by: Angle Abrams CNM 19yo, . LMP 01/20. EDC 10/28/25. A+,abs-, rpr;;nr, rub IMM hbsag-,hiv-,HC-, gc/ct done Office Procedures OBC Clinic LOC & Office Proc's Nursing/Assessment Patient Status: Established Patient OB Clinic Nursing Assessment: Medication Reconciliation, Update PMH in EMR and Vital Signs OB Clinic Coordination of Care: Consent,records obtained, informed consent, Education Simp Pt/Fam, Lab and Imaging orders, Results/Orders obtained and Staff clarify orders Special Needs: Heart tones Established Patient Charge Established Patient Point Assignment: 110 Established Patient Point Charge: EP Level 3 (80-115) Assessment & Plan Diagnosis / Problem List (1) Encounter for supervision of high risk in third trimester, antepartum: Status: Acute Plan Discussed labor precautions. Kick count twice a day. Increase fluids. Tylenol as needed for headache. And discussed danger signs symptoms and PIH precautions and ER precautions. Return OB check Additional Plan Follow Up: 1 Week (obc)
== END 2025-10-17 15:50 | disposition home or self-care (01) ==
LOC: HODSOBC 14:59
PROVIDERS: Supervising Provider Advanced Practice Midwife; Visit Provider Advanced Practice Midwife
DX: O09.93 Supervision of high risk pregnancy, unspecified, third trimester (principal); Z3A.38 38 weeks gestation of pregnancy
CPT/HCPCS: 99213; G0463

== ENCOUNTER 2025-10-25 10:02 | Outpatient (AMB) | payer MEDICAID, SELFPAY ==
[2025-10-25 10:06] VITALS: BP 115/71; PULSE 80; RESP 16; TEMP 36.4; O2SAT 98; BMI 31.8
--- NOTE | 2025-10-25 10:06 | OBCLNT_ITS ---
Vital Signs 10/25/25 10:06 Height 1.7 m Height Method Stated Weight 91.852 kg Weight Measurement Method Standing Scale BMI 31.8 BP 115/71 Blood Pressure Source Automatic Cuff Blood Pressure Location Left Upper Arm Position Sitting Respiration 16 Pulse 80 Pulse Source Monitor Temp 97.6 F Temp Source Oral Pulse Oximetry (%) 98 Oxygen Delivery Method Room Air Allergies/Home Meds Allergies & Medications Allergies No Known Allergies Allergy (Verified 10/25/25 10:07) Medication Reconciliation ferrous sulfate 325 mg (65 mg iron) tablet,delayed release 325 mg PO BID #60 tabs 08/30/25 [Rx Confirmed 10/25/25] vits no.126-ferrous fum 28 mg iron-folic acid 800 mcg tablet (Classic ) 0.126 - 28 tab PO DAILY 30 days #60 tabs 08/30/25 [Rx Confirmed 10/25/25] Immunizations Immunizations Flu Vaccine in the Last 12 Months: No Flu Vaccine Exclusion Criteria: Refused by Patient Care OB Visit Log OB Flowsheet Initial Weight: Not Recorded Date -?-?-?-?-?-?-?-?-?-?-?-?- EGA Weight BP Alb Glu CTX Pres Fundal ht FHR Mov Dilation Station Effacement Hx Notes Visit Note 03/21/25 -?-?-?-?-?-?-?-?-?-?-?-?- 8w 4d 78.471 kg 122/71 absent 8.0 absent 30-year-old 3 para 2 with existing chronic hypertension. Patient's last. January 12, 2025. EDC October 18, 2025. Patient is 10 weeks by dates. She was given vitamins which she is taking. And started on labetalol 100 mg twice daily for chronic hypertension. Patient stopped taking her labetalol 2 weeks ago because of feeling lightheaded and dizzy. She denies any bleeding at this time but she had spotting a week ago. Vision is clear no headaches no epigastric pain. Today I encouraged patient to restart and continue her labetalol twice daily. Ordered a BP kit so patient can take her blood pressure at home and talk to her about taking her blood pressures while she was at work I gave a note for no use of a ladder and no lifting over 20 pounds for work. Patient wants to continue to work. Discussed danger signs symptoms okay to take Tylenol for headache. OB panel hemoglobin A1c CBC NIPT and carrier screening today. I did a CMP today as well. SAB precautions schedule ultrasound for dating and viability on hCG was done return in 3 weeks for follow-up OB check 19-year-old 2 para 0 for first OBI. Last. January 20, 2025. As admitted due date October 28, 2025. Today OB panel was drawn along with hemoglobin A1c and beta quant. Ultrasound for dates and viability. Discussed weight gain and diet. Walk 40 minutes a day. Return in 4 weeks OB check 04/11/25 -?-?-?-?-?-?-?-?-?-?-?-?- 11w 4d 77.621 kg 120/69 absent unknown 12 156 absent no c/o of Bleeding,leraking or cramps, slight back ache, doing well NUSWAB for gc/ct, nipt and carrier screen, schedule MFM appointment, sab precaution, re-order dating scan, sab precaution, rtc [address] [facility] 04/24/25 -?-?-?-?-?-?-?-?-?-?-?-?- 13w 3d 77.678 kg 115/69 absent unknown 13 156 active c/o vaginal pain, discharge, curdy, foul odor, vagina red,swollen flagyl 500 bid x7, gynelotrimin x7, nuswab plus, schedule MFM anatomy scan, sb precaution. comfort measure for vaginitis, iron bid. rtc 4 week obc 05/09/25 -?-?-?-?-?-?-?-?-?-?-?-?- 15w 4d 77.224 kg 119/68 absent unknown 15 160 active vaginitis improved, did not take flagyl, no sab complaints today. light fm vaginitis improved, did not take flagyl, no sab complaints today. light fm. MFM 06/22/25 advised to compl ete flagyl now, discuss compliance with meds. schedule MFM appt, AFP today, discuss SAB precaution, rtc 4 week obc 06/20/25 -?-?-?-?-?-?-?-?-?-?-?-?- 21w 4d absent unknown active patient had virtual from [place], ER visit for vaginitis. tx with vaginal cream x 7 days. reports feeling better. good FM, no VB,leaking, or cramps. heading back for [place] advised to make stops on her way home. increase fluid, review PTL precaution, rtc 4 week advised to make stops on her way home. increase fluid, review PTL precaution, rtc 4 week. MFM appt in 1 week 06/28/25 -?-?-?-?-?-?-?-?-?-?-?-?- 22w 5d 80.399 kg 110/70 absent unknown 22 146 active No OB complaint, denies leaking,bleeding, UC. c/o vaginal discharge, dysuria. But NuSwab plus t марина. I gave prescription ORIGINATION SPECIALIST Lotrimin 1-2 per vagina x 7 days and Flagyl 500 twice daily x 7 days comfort measures for vaginitis. Keep maternal- medicine appointment RTC 2024. And increase fluids. Discussed diet and weight. labor precautions reviewed 07/13/25 -?-?-?-?-?-?-?-?-?-?-?-?- 24w 6d 81.306 kg 107/66 absent unknown 24 146 active No OB complaints. Continued discharge despite being treated for BV and yeast. Reports good movement. Occasional cramp. No other complaints. Patient will be scheduled for growth sono and at 36 weeks. New swab today. I will treat if positive culture. Third trimester labs ordered. Discussed labor precautions. Increase fluids. Comfort measures for vaginitis. Return in 4 weeks for recheck 08/09/25 -?-?-?-?-?-?-?-?-?-?-?-?- 28w 5d 83.688 kg 122/61 absent unknown 28 146 active Patient reports feeling much better. She started the Diflucan and her symptoms of yeast infection have gone away. Patient was seen at [facility] on the fourth for complaints of dysuria. She was treated with Keflex and Macrobid for UTI. She also has completed her Gyne-Lotrimin and then was told to not complete her Diflucan until she was done with antibiotics. Patient has a follow-up coming with [facility] in about 6 weeks. For growth scan and she was given a lab slip to do third trimester labs. Diflucan 150 ordered to pharmacy. Continue to get third trimester labs. Discussed labor precautions. Patient has a follow-up growth scan at 6 weeks at [facility]. Discussed labor precautions increase fluids. Return in 3 weeks OB check 08/30/25 -?-?-?-?--?-?-?-?-?-?-?-?- 31w 5d 85.786 kg 109/70 absent unknown 30 145 active Patient is unable to get iron study labs today because she needs to go to work. I discussed with patient giving IV iron x 2. Patient is unable to go today she says because she needs to go to work. And patient does not take her iron and has not been taking her iron as directed because she says it makes her feel funny. She also ran out of prenatals and stopped taking those because she does not like the way they takes. Denies contractions. Denies leaking. Denies bleeding. Reports good movement tdap, refill iro n. And I refilled vitamins. Discussed with patient importance of taking her iron. Needing green veggies. Increase fluids. Discussed labor precautions. Patient will go into labor and delivery on August 31 for IV iron and complete OB. Return in 2 weeks OB check 09/25/25 -?-?-?-?-?-?-?-?-?-?-?-?- 35w 3d 87.317 kg 101/65 absent cephalic 35 145 active Complains of left- sided ligament pain. Reports movement. Denies leaking or bleeding. Denies contractions. Patient would like to take oral iron once a day. And she completed the IV iron. Complains of left-sided liga ment pain. Reports movement. Denies leaking or bleeding. Denies contractions. Patient would like to take oral iron once a day. And she completed the IV iron. Extinct 2024. IV iron x 2. Continue p.o.iron once daily. Increase iron foods. CBC today. GBS today. Kick count twice a day. And return week OB check. Comfort measures for ligament pain IV iron x 2. Continue p.o.i aimee once daily. Increase iron foods. CBC today. GBS today. Kick count twice a day. And return week OB check. Comfort measures for ligament pain. Last date of work will be October 06, 2025. Start disability October 07, 2000 10/10/25 -?-?-?-?-?-?-?-?-?-?-?-?- 37w 4d 89.528 kg 119/72 absent cephalic 36 145 active after IV iron: 07/19, gbs-, Fetus active per patient. D enies leaking, bleeding, contractions. Complains of a headache. Iron increased 07/19 after IV transfusions of iron. GBS negative. Urine dip protein. Discussed labor precautions. Kick count. Discussed danger signs symptoms ER precautions. Continue p.o. iron. And return in a week OB check 10/17/25 -?-?-?-?-?-?-?-?-?-?-?-?- 38w 4d 89.584 kg 120/71 absent cephalic 37 145 active Fetus active per pa tient. Denies leaking, bleeding no contractions. Complains of slight temporal headache Discussed labor precautions. Comfort measures for headache. Discussed PIH precautions and danger signs symptoms return a week OB check 10/25/25 -?-?-?-?-?-?-?-?-?-?-?-?- 39w 5d 91.852 kg 115/71 absent cephalic 39 145 decreased 1 -2 50 Complains of decreased movement. Denies leaking, bleeding, contractions Patient to labor and delivery for NST BPP. Reviewed kick count parameters. Increase fluids. Discussed comfort measures for early labor. Return in week OB check YESSI Calculator Estimated Delivery Date Method Current WG Current Estimate 10/27/25 LMP (Certain) 39w 5d Other Estimates 10/28/25 Ultrasound #1 39w 4d 10/27/25 Ultrasound #2 39w 5d 10/27/25 Manual 39w 5d final yessi: 10/27 Notes Visit Date: 10/10/25 Last Updated by: Angle Abrams CNM 10/09: 07/19, GBS-, 10/02: sono: 36.3, efw;49%, normal ZAYRA, no previa UA: negative Visit Date: 08/30/25 Last Updated by: Angle Abrams CNM 08/25: hgb: 7.2/26.7/MCV: 70, A1c> 5.5, rpr:nr, 1 hr: 120: IV iron Visit Date: 07/13/25 Last Updated by: Angle Abrams CNM 19 yo lmp: 01/20/25. EDC 10/27/25. sono: 06/29/25: 22w6, 26% Visit Date: 06/28/25 Last Updated by: Angle Abrams CNM OB panel: A+,abs-, rpr;;nr, rub IMM, hbsag-,hiv-,Hc-, NIPT-, carrier screen-,AFP- Visit Date: 06/20/25 Last Updated by: Angle Abrams CNM 19 yo . lmp 01/20/25. edc 10/27/25 Visit Date: 05/09/25 Last Updated by: Angle Abrams CNM A+,abs-, rpr;;nr, rub imm, hbsag-, hiv-, HC-, GC/CT-, NIPT/carrier screen- Visit Date: 04/24/25 Last Updated by: Angle Abrams CNM NIPT:neg/girl, SMA- Visit Date: 04/11/25 Last Updated by: Angle Abrams CNM 19yo, . LMP 01/20. EDC 10/28/25. A+,abs-, rpr;;nr, rub IMM hbsag-,hiv-,HC-, gc/ct done Office Procedures OBC Clinic LOC & Office Proc's Nursing/Assessment Patient Status: Established Patient OB Clinic Nursing Assessment: Medication Reconciliation, Update PMH in EMR and Vital Signs OB Clinic Coordination of Care: Complex Care and Chronic Disease 1-5, Consent,records obtained, informed consent, Education Simp Pt/Fam, 1 Ins Authorization, Lab and Imaging orders, Results/Orders obtained and Staff clarify orders Special Needs: Heart tones Established Patient Charge Established Patient Point Assignment: 150 Established Patient Point Charge: EP Level 4 (120-155) Assessment & Plan Diagnosis / Problem List (1) Encounter for supervision of high risk in third trimester, antepartum: Status: Acute Plan Discussed labor precautions. Discussed kick count with parameters. Increase fluids. Comfort measures early labor return week OB check Additional Plan Follow Up: 1 Week (obc)
== END 2025-10-25 10:27 | disposition home or self-care (01) ==
LOC: HODSOBC 10:02
PROVIDERS: Supervising Provider Advanced Practice Midwife; Visit Provider Advanced Practice Midwife
DX: O09.893 Supervision of other high risk pregnancies, third trimester (principal); O36.8130 Decreased fetal movements, third trimester, not applicable or unspecified; Z3A.39 39 weeks gestation of pregnancy; Z28.21 Immunization not carried out because of patient refusal
CPT/HCPCS: 99214; G0463

== ENCOUNTER 2025-10-25 11:00 | Outpatient (CLI) | payer MEDICAID, SELFPAY ==
[2025-10-25 11:07] VITALS: BP 107/53; PULSE 65; RESP 18; TEMP 36.7; BMI 31.8
[2025-10-25 11:08] VITALS: BP 107/53; PULSE 65
--- NOTE | 2025-10-25 11:09 | XR_ITS ---
Examination: Biophysical profile, ultrasound Date and time of exam: October 25, 2025, 1152 hours INDICATIONS: Episodes of vaginal bleeding last month Technique: Multiple transabdominal sonographic images of the pelvis abdomen obtained. Attention is directed to the breathing movement, gross body movement, amniotic fluid volume and tone. Findings: Amniotic fluid index 9.9 cm Total biophysical profile is 8 of 8. breathing movement is 2. Gross body movement is 2. tone is 2. Qualitative amniotic fluid volume is 2 Impression: Biophysical profile is 8 of 8.
--- NOTE | 2025-11-01 07:23 | PC.NURSE ---
PT CALLED ASKING FOR BED AVAILABILITY FOR IOL, INFORMED OF NO BEDS AVAILABLE AT THIS TIME, WILL CALL ONCE BED BECOMES AVAILABLE, EDUCATED ON KICK COUNT AND LABOR PRECAUTIONS, PT VERBALIZED UNDERSTANDING
== END 2025-10-25 12:40 | disposition home or self-care (01) ==
LOC: S4S1 11:01 → S4SX 11:02
PROVIDERS: Referring Provider Advanced Practice Midwife; Visit Provider Advanced Practice Midwife
DX: O36.8130 Decreased fetal movements, third trimester, not applicable or unspecified (principal); Z3A.39 39 weeks gestation of pregnancy
CPT/HCPCS: 59025; 76819

== ENCOUNTER 2025-11-02 09:08 | Outpatient (AMB) | payer MEDICAID, SELFPAY ==
[2025-11-02 09:18] VITALS: BP 121/80; PULSE 100; RESP 18; TEMP 36.7; O2SAT 97; BMI 32.3
--- NOTE | 2025-11-02 09:18 | OBCLNT_ITS ---
Vital Signs 11/02/25 09:18 Height 1.7 m Height Method Stated Weight 93.667 kg Weight Measurement Method Standing Scale BMI 32.3 BP 121/80 Blood Pressure Source Automatic Cuff Blood Pressure Location Right Upper Arm Position Sitting Respiration 18 Pulse 100 Pulse Source Monitor Temp 98.0 F Temp Source Temporal Artery Scan Pulse Oximetry (%) 97 Oxygen Delivery Method Room Air Allergies/Home Meds Allergies & Medications Allergies No Known Allergies Allergy (Verified 11/02/25 09:19) Medication Reconciliation ferrous sulfate 325 mg (65 mg iron) tablet,delayed release 325 mg PO BID #60 tabs 08/30/25 [Rx Confirmed 11/02/25] vits no.126-ferrous fum 28 mg iron-folic acid 800 mcg tablet (Classic ) 0.126 - 28 tab PO DAILY 30 days #60 tabs 08/30/25 [Rx Confirmed 11/02/25] Immunizations Immunizations Flu Vaccine in the Last 12 Months: No Flu Vaccine Exclusion Criteria: No Exclusion Criteria Care OB Visit Log OB Flowsheet Initial Weight: Not Recorded Date -?-?-?-?-?-?-?-?-?-?-?-?- EGA Weight BP Alb Glu CTX Pres Fundal ht FHR Mov Dilation Station Effacement Hx Notes Visit Note 03/21/25 -?-?-?-?-?-?-?-?--?-?-?-?- 8w 4d 78.471 kg 122/71 absent 8.0 absent 30-year-old 3 para 2 with existing chronic hypertension. Patient's last. January 12, 2025. EDC October 18, 2025. Patient is 10 weeks by dates. She was given vitamins which she is taking. And started on labetalol 100 mg twice daily for chronic hypertension. Patient stopped taking her labetalol 2 weeks ago because of feeling lightheaded and dizzy. She denies any bleeding at this time but she had spotting a week ago. Vision is clear no headaches no epigastric pain. Samir purvis I encouraged patient to restart and continue her labetalol twice daily. Ordered a BP kit so patient can take her blood pressure at home and talk to her about taking her blood pressures while she was at work I gave a note for no use of a ladder and no lifting over 20 pounds for work. Patient wants to continue to work. Discussed danger signs symptoms okay to take Tylenol for headache. OB panel hemoglobin A1c CBC NIPT and carrier screening today. I did a CMP today as well. SAB precautions schedule ultrasound for dating and viability on hCG was done return in 3 weeks for follow-up OB check 19-year-old 2 para 0 for first OBI. Last. January 20, 2025. As admitted due date October 28, 2025. Today OB panel was drawn along with hemoglobin A1c and beta quant. Ultrasound for dates and viability. Discussed weight gain and diet. Walk 40 minutes a day. Return in 4 weeks OB check 04/11/25 -?-?-?-?-?-?-?-?-?-?-?-?- 11w 4d 77.621 kg 120/69 absent unknown 12 156 absent no c/o of Bleeding,leraking or cramps, slight back ache, doing well NUSWAB for gc/ct, nipt and carrier screen, schedule MFM appointment, sab precaution, re-order dating scan, sab precaution, rtc 4 w ob 04/24/25 -?-?-?-?-?-?-?-?-?-?-?-?- 13w 3d 77.678 kg 115/69 absent unknown 13 156 active c/o vaginal pain, discharge, curdy, foul odor, vagina red,swollen flagyl 500 bid x7, gynelotrimin x7, nuswab plus, schedule MFM anatomy scan, sb precaution. comfort measure for vaginitis, iron bid. rtc 4 week obc 05/09/25 -?-?-?-?-?-?-?-?-?-?-?-?- 15w 4d 77.224 kg 119/68 absent unknown 15 160 active vaginitis improved, did not take flagyl, no sab complaints today. light fm vaginitis improved, did not take flagyl, no sab complaints today. light fm. MFM 06/22/25 advised to compl ete flagyl now, discuss compliance with meds. schedule MFM appt, AFP today, discuss SAB precaution, rtc 4 week obc 06/20/25 -?-?-?-?-?-?-?-?-?-?-?-?- 21w 4d absent unknown active patient had virtual from [place], ER visit for vaginitis. tx with vaginal cream x 7 days. reports feeling better. good FM, no VB,leaking, or cramps. heading back for [place] advised to make stops on her way home. increase fluid, review PTL precaution, rtc 4 week advised to make stops on her way home. increase fluid, review PTL precaution, rtc 4 week. MFM appt in 1 week 06/28/25 -?-?-?-?-?-?-?-?-?-?-?-?- 22w 5d 80.399 kg 110/70 absent unknown 22 146 active No OB complaint, denies leaking,bleeding, UC. c/o vaginal discharge, dysuria. But NuSwab plus today. I gave prescription [employer]OTECH[employer] Lotrimin 1-2 per vagina x 7 days and Flagyl 500 twice daily x 7 days comfort measures for vaginitis. Keep maternal- medicine appointment RTC 2024. And increase fluids. Discussed diet and weight. labor precautions reviewed 07/13/25 -?-?-?-?-?-?-?-?-?-?-?-?- 24w 6d 81.306 kg 107/66 absent unknown 24 146 active No OB complaints. Continued discharge despite being treated for BV and yeast. Reports good movement. Occasional cramp. No other complaints. Patient will be scheduled for growth sono and at 36 weeks. New swab today. I will treat if positive culture. Third trimester labs ordered. Discussed labor precautions. Increase fluids. Comfort measures for vaginitis. Return in 4 weeks for recheck 08/09/25 -?-?-?-?-?-?-?-?-?-?-?-?- 28w 5d 83.688 kg 122/61 absent unknown 28 146 active Patient reports feeling much better. She started the Diflucan and her symptoms of yeast infection have gone away. Patient was seen at [facility] on the fourth for complaints of dysuria. She was treated with Keflex and Macrobid for UTI. She also has completed her Gyne-Lotrimin and then was told to not complete her Diflucan until she was done with antibiotics. Patient has a follow-up coming with [facility] in about 6 weeks. For growth scan and she was given a lab slip to do third trimester labs. Diflucan 150 ordered to pharmacy. Continue to get third trimester labs. Discussed labor precautions. Patient has a follow-up growth scan at 6 weeks at [facility]. Discussed labor precautions increase fluids. Return in 3 weeks OB check 08/30/25 -?-?-?-?-?-?-?-?-?-?-?-?- 31w 5d 85.786 kg 109/70 absent unknown 30 145 active Patient is unable to get iron study labs today because she needs to go to work. I discussed with patient giving IV iron x 2. Patient is unable to go today she says because she needs to go to work. And patient does not take her iron and has not been taking her iron as directed because she says it makes her feel funny. She also ran out of prenatals and stopped taking those because she does not like the way they takes. Denies contractions. Denies leaking. Denies bleeding. Reports good movement tdap, refill iro n. And I refilled vitamins. Discussed with patient importance of taking her iron. Needing green veggies. Increase fluids. Discussed labor precautions. Patient will go into labor and delivery on August 31 for IV iron and complete OB. Return in 2 weeks OB check 09/25/25 -?-?-?-?-?-?-?-?-?-?-?-?- 35w 3d 87.317 kg 101/65 absent cephalic 35 145 active Complains of left- sided ligament pain. Reports movement. Denies leaking or bleeding. Denies contractions. Patient would like to take oral iron once a day. And she completed the IV iron. Complains of left-sided liga ment pain. Reports movement. Denies leaking or bleeding. Denies contractions. Patient would like to take oral iron once a day. And she completed the IV iron. Extinct 2024. IV iron x 2. Continue p.o.iron once daily. Increase iron foods. CBC today. GBS today. Kick count twice a day. And return week OB check. Comfort measures for ligament pain IV iron x 2. Continue p.o.i aimee once daily. Increase iron foods. CBC today. GBS today. Kick count twice a day. And return week OB check. Comfort measures for ligament pain. Last date of work will be October 06, 2025. Start disability October 07, 2000 10/10/25 -?-?-?-?-?-?-?-?-?-?-?-?- 37w 4d 89.528 kg 119/72 absent cephalic 36 145 active after IV iron: 07/19, gbs-, Fetus active per patient. D enies leaking, bleeding, contractions. Complains of a headache. Iron increased 07/19 after IV transfusions of iron. GBS negative. Urine dip protein. Discussed labor precautions. Kick count. Discussed danger signs symptoms ER precautions. Continue p.o. iron. And return in a week OB check 10/17/25 -?-?-?-?-?-?-?-?-?-?-?-?- 38w 4d 89.584 kg 120/71 absent cephalic 37 145 active Fetus active per patient. Denies leaking, bleeding no contractions. Complains of slight temporal headache Discussed labo r precautions. Comfort measures for headache. Discussed PIH precautions and danger signs symptoms return a week OB check 10/25/25 -?-?-?-?-?-?-?-?-?-?-?-?- 39w 5d 91.852 kg 115/71 absent cephalic 39 145 decreased 1 -2 50 Complains of decreased movement. Denies leaking, bleeding, contractions Patient to labor and delivery for NST BPP. Reviewed kick count parameters. Increase fluids. Discussed comfort measures for early labor. Return in week OB check 11/02/25 -?-?-?-?-?-?-?-?-?-?-?-?- 40w 6d 93.667 kg 121/80 occasional cephalic 39 145 active 1 -2 50 Reports good movement. Denies leaking or bleeding. Irregular contractions. Fetus is active Discussed labor precautions. Kick count twice a day. Comfort measures for early labor. Patient is scheduled for an induction and she will be called when his bed availability YESSI Calculator Estimated Delivery Date Method Current WG Current Estimate 10/27/25 LMP (Certain) 40w 6d Other Estimates 10/28/25 Ultrasound #1 40w 5d 10/27/25 Ultrasound #2 40w 6d 10/27/25 Manual 40w 6d final yessi: 10/27 Notes Visit Date: 10/10/25 Last Updated by: Angle Abrams CNM 10/09: 8/28, GBS-, 10/02: sono: 36.3, efw;49%, normal ZAYRA, no previa UA: negative Visit Date: 08/30/25 Last Updated by: nAgle Abrams CNM 08/25: hgb: 7.2/26.7/MCV: 70, A1c> 5.5, rpr:nr, 1 hr: 120: IV iron Visit Date: 07/13/25 Last Updated by: Angle Abrams CNM 19 yo lmp: 01/20/25. EDC 10/27/25. sono: 06/29/25: 22w6, 26% Visit Date: 06/28/25 Last Updated by: Angle Abrams CNM OB panel: A+,abs-, rpr;;nr, rub IMM, hbsag-,hiv-,Hc-, NIPT-, carrier screen-,AFP- Visit Date: 06/20/25 Last Updated by: Angle Abrams CNM 19 yo . lmp 01/20/25. edc 10/27/25 Visit Date: 05/09/25 Last Updated by: Angle Abrams CNM A+,abs-, rpr;;nr, rub imm, hbsag-, hiv-, HC-, GC/CT-, NIPT/carrier screen- Visit Date: 04/24/25 Last Updated by: Angle Abrams CNM NIPT:neg/girl, SMA- Visit Date: 04/11/25 Last Updated by: Angle Abrams CNM 19yo, . LMP 01/20. EDC 10/28/25. A+,abs-, rpr;;nr, rub IMM hbsag-,hiv-,HC-, gc/ct done Office Procedures OBC Clinic LOC & Office Proc's Nursing/Assessment Patient Status: Established Patient OB Clinic Nursing Assessment: Medication Reconciliation, Update PMH in EMR and Vital Signs OB Clinic Coordination of Care: Complex Care and Chronic Disease 1-5, Education Complex Pt/Fam, Consent,records obtained, informed consent, Lab and Imaging orders, Results/Orders obtained and Staff clarify orders Special Needs: Heart tones Established Patient Charge Established Patient Point Assignment: 140 Established Patient Point Charge: EP Level 4 (120-155) Assessment & Plan Diagnosis / Problem List (1) Encounter for supervision of high risk in third trimester, antepar barry: Status: Acute Plan Scheduled for induction of labor today. Reports good movement. Kick count twice a day. Discussed ER precautions and danger signs. Patient will call for bed Additional Plan Follow Up: 1 Week (obc)
== END 2025-11-02 09:54 | disposition home or self-care (01) ==
LOC: HODSOBC 09:08
PROVIDERS: Supervising Provider Advanced Practice Midwife; Visit Provider Advanced Practice Midwife
DX: O09.893 Supervision of other high risk pregnancies, third trimester (principal); O48.0 Post-term pregnancy; O47.1 False labor at or after 37 completed weeks of gestation; Z3A.40 40 weeks gestation of pregnancy
CPT/HCPCS: 99214; G0463

== ENCOUNTER 2025-11-03 05:27 | Inpatient (IN) | payer MEDICAID, SELFPAY ==
[2025-11-03] VITALS (104 sets, daily range): BP systolic 100–143; BP diastolic 54–90; PULSE 61–105; RESP 16–19; TEMP 36.4–37.2; O2SAT 95–100; BMI 32.4
--- NOTE | 2025-11-03 06:41 | XR_ITS ---
Examination: Complete OB ultrasound greater than 14 weeks Date and time of exam: November 03, 2025, 0710 hours INDICATIONS: Labor evaluation today, preop induction Findings: Viable intrauterine single fetus with single amniotic sac presentation cephalic Cardiac motion 135 bpm Placenta fundal grade 3 Medical cord insertion seen Amniotic fluid index 10.3 cm Cervix 2.9 cm Ovaries obscured by bowel gas. Composite estimated gestational age based on BPD, head circumference, abdominal circumference, femur length is 37 weeks 3 days Estimated weight 3171 g. Survey of intracranial anatomy, spinal anatomy, abdominal anatomy, four-chamber heart performed with no abnormalities identified. Impression: Viable intrauterine gestation cephalic presentation.
[2025-11-03 07:02] LABS: Basophils # (Auto) 0.1 Thou/mm3 (0.0-0.2); Basophils % (Auto) 1 % (0-2.5); Eosinophils # (Auto) 0.2 Thou/mm3 (0.0-0.5); Eosinophils % (Auto) 2 % (0-10); Hematocrit 25.8 % (36.0-46.0); Immature Granulocytes Auto 0.13 Thou/mm3 (0.00-0.00); Lymphocytes # (Auto) 2.4 Thou/mm3 (1.0-4.8); Lymphocytes % (Auto) 19 % (10-50); Mean Corpuscular HGB Conc 28.3 g/dl (31.0-37.0); Mean Corpuscular Hemoglobin 18.3 pg (25.0-35.0); Mean Corpuscular Volume 65 fL (80-100); Monocytes # (Auto) 0.7 Thou/mm3 (0.0-0.8); Monocytes % (Auto) 6 % (0-12); Neutrophils # (Auto) 8.8 Thou/mm3 (1.8-7.7); Neutrophils % (Auto) 72 % (37-80); Nucleated Red Blood Cell # 0.05 Thou/mm3 (0.00-0.00); Nucleated Red Blood Cell % 0 /100 WBC (0); Platelet Count 325 Thou/mm3 (140-440); RDW Standard Deviation 47.4 fL (36.4-46.3); Red Blood Count 3.99 Miln/mm3 (4.00-5.20); White Blood Count 12.2 Thou/mm3 (4.5-11.0)
[2025-11-03 07:11] LABS: Hemoglobin 7.3 g/dL (12.0-16.0)
[2025-11-03 07:25] LABS: Syphilis Nonreactive (Nonreactive)
[2025-11-03 09:54] LABS: Path Review Blood Smear Sent to Pathologist
[2025-11-03] MEDS: RINGERS LACTATED 1000 ML 1,000 ML 100 ML IV (16:29)
--- NOTE | 2025-11-03 21:10 | PD.LDHP ---
Documentation for date of: 11/03/25 OB Labor/Induct. HPI History of Present Illness Chief complaint: induction : 2 Para: 0 Term pregnancies: 0 pregnancies: 0 Living children: 0 History of Abortions: Spontaneous and Elective: 1 History of Vaginal deliveries: 0 History of sections: No History of : No Date of last menstrual period: 01/20/25 YESSI: 10/27/25 Gestational Age (weeks): 41 Gestational Age (days): 0 Gestational age based on last menstrual period: 41 Indication for induction: post dates History of present illness: 20-year-old 2 para 0 for induction of labor. Patient has been followed at [facility] OB clinic. First visit was at 8 weeks 4 days. was affected by severe anemia and baby growing in the 20th percentile. Patient received IV iron x 3 doses antepartum. She also had weekly NST BPP for small for dates. Denies bleeding denies leaking. Reports movement. Patient is A+, antibody screen negative, RPR nonreactive, rubella, hepatitis B negative, hep C negative, HIV negative, GC and Chlamydia were negative. Her NIPT and carrier screens were negative. Her 1 hour was negative and GBS negative. Denies social habits. Denies surgery. Denies chronic illness last. Was January 20, 2025. Estimated due date October 27, 2025. Patient had a second trimester ultrasound to confirm dates. CBC: HCT:25/hgb: 7.3, PLT: 325 History of Present Dating criteria: LMP confirmed by 1st trimester US Ultrasounds: normal 1st trimester US and normal mid trimester US Obstetrical complications: none Medical complications: none Labs Labs: Positive: Rubella Titre, Negative: RPR, Hepatitis B, HIV, Chlamydia, Gonorrhea and Group Beta Strep and Unknown: Herpes Type 1, Herpes Type 2 and Covid-19 Review of Systems Review of Systems Systems Reviewed: All systems reviewed, normal except as documented Past Medical History Surgical History SURGICAL: Negative Section Meds Home Medications and Allergies Allergies Allergy/AdvReac Type Severity Reaction Status Date / Time No Known Allergies Allergy Verified 11/03/25 06:28 OB Exam Physical Exam Vital signs: Temp Pulse Resp BP Pulse Ox O2 Del Method 97.9 F 69 17 125/72 100 CPAP 11/03/25 17:15 11/03/25 19:16 11/03/25 17:15 11/03/25 19:16 11/03/25 16:09 11/03/25 17:15 Narrative: Alert and oriented. Normal heart rate and rhythm. Lungs clear no wheezes. Gravid abdomen. Gynecoid pelvis. Estimated weight 6 pounds 14 ounces. Vaginal exam on admission was long 1 and posterior thick. Vertex. heart Category 1 with accelerations and moderate variability and irregular contraction. No leaking no bleeding Detailed Labor and Delivery Exam Dilation (cm): 1 Effacement (%): thick Cervix position: posterior station: -3 Consistency: medium Presentation: Vertex Cervical ripeness score: 2 Membranes: intact Baseline heart rate: 145 monitor accelerations: 15x15 monitor decelerations: None [facility] variability: Moderate (11-25) Contraction frequency (min): irreg Contraction duration (sec): 40 Tachysystole: No Contraction intensity: Mild OB Results Labs 11/03/25 06:20 Labs: Short CBC 11/03/25 Range/Units 06:20 WBC 12.2 H (4.5-11.0) Thou/mm3 Hgb 7.3 L (12.0-16.0) g/dL Hct 25.8 L (36.0-46.0) % Plt Count 325 (140-440) Thou/mm3 OB Assessment & Plan Assessment and Plan (1) Normal labor and delivery: Status: Acute Additional Plan Induction method: per misoprostol protocol Plan: induction, anticipate NVD and consult MD tamez Additional Plan Comment: Transfused 2 units whole blood. Repeat CBC in 12 hours
[2025-11-03 22:25] LABS: Basophils # (Auto) 0.1 Thou/mm3 (0.0-0.2); Basophils % (Auto) 1 % (0-2.5); Eosinophils # (Auto) 0.2 Thou/mm3 (0.0-0.5); Eosinophils % (Auto) 1 % (0-10); Hematocrit 31.9 % (36.0-46.0); Hemoglobin 9.3 g/dL (12.0-16.0); Immature Granulocytes Auto 0.17 Thou/mm3 (0.00-0.00); Lymphocytes # (Auto) 2.6 Thou/mm3 (1.0-4.8); Lymphocytes % (Auto) 18 % (10-50); Mean Corpuscular HGB Conc 29.2 g/dl (31.0-37.0); Mean Corpuscular Hemoglobin 20.1 pg (25.0-35.0); Mean Corpuscular Volume 69 fL (80-100); Monocytes # (Auto) 0.8 Thou/mm3 (0.0-0.8); Monocytes % (Auto) 6 % (0-12); Neutrophils # (Auto) 10.4 Thou/mm3 (1.8-7.7); Neutrophils % (Auto) 73 % (37-80); Nucleated Red Blood Cell # 0.08 Thou/mm3 (0.00-0.00); Nucleated Red Blood Cell % 1 /100 WBC (0); Platelet Count 323 Thou/mm3 (140-440); RDW Standard Deviation 55.8 fL (36.4-46.3); Red Blood Count 4.63 Miln/mm3 (4.00-5.20); White Blood Count 14.2 Thou/mm3 (4.5-11.0)
[2025-11-04] VITALS (143 sets, daily range): BP systolic 93–142; BP diastolic 50–92; PULSE 57–110; RESP 16–20; TEMP 36.1–38.1; O2SAT 88–100
[2025-11-04 03:15] LABS: ROM Kit Exp Date# 041128; ROM Kit Lot # 58106258; Rupture of Fetal Membranes Positive (Negative); Swb Mxed in Solvent 1 min? Yes
[2025-11-04] MEDS: RINGERS LACTATED 1000 ML 1,000 ML 100 ML IV (03:37)
--- NOTE | 2025-11-04 04:20 | PD.LDPN ---
Documentation for date of: 11/04/25 OB Labor Progress Note Pain Control Pain control: tolerating well Pelvic Exam Dilation (cm): 2-3 Effacement (%): thick station: -1 Amniotic membrane status: Ruptured Contractions Monitor mode: Internal Contraction frequency: 3-4 Contraction duration: 40 Contraction phase: Resting Contraction intensity: Mild Status status: Category ll Assessment and Plan Assessment: induction ongoing Plan OB labor note: begin Pitocin augmentation CNM Management MD Consulted (describe details below): Yes Details of MD consultation: epidural and continue care History of Present Illness HPI 20-year-old 2 para 0 for induction of labor. Patient has been followed at [facility] OB clinic. First visit was at 8 weeks 4 days. was affected by severe anemia and baby growing in the 20th percentile. Patient received IV iron x 3 doses antepartum. She also had weekly NST BPP for small for dates. Denies bleeding denies leaking. Reports movement. Patient is A+, antibody screen negative, RPR nonreactive, rubella, hepatitis B negative, hep C negative, HIV negative, GC and Chlamydia were negative. Her NIPT and carrier screens were negative. Her 1 hour was negative and GBS negative. Denies social habits. Denies surgery. Denies chronic illness last. Was January 20, 2025. Estimated due date October 27, 2025. Patient had a second trimester ultrasound to confirm dates. CBC: HCT:25/hgb: 7.3, PLT: 325
[2025-11-04] MEDS: OXYTOCIN in NS 30 units 30 UNIT/500 ML BAG IV (08:31)
[2025-11-04] MEDS: MINERAL OIL 30 ML UDC TOP (11:15)
[2025-11-04] MEDS: OXYTOCIN in NS 20 units 20 UNIT/1,000 ML BAG 125 UNIT IV (11:37)
[2025-11-04] MEDS: OXYTOCIN INJ 10 UNIT/ML VIAL IM (11:40)
[2025-11-04] MEDS: METHYLERGONOVINE INJ 0.2 MG/ML VIAL IM (11:46)
[2025-11-04] MEDS: BENZO/LANO/ALOE (Dermoplast) 60 GM CAN 1 SPRAY TOP (11:52)
[2025-11-04] MEDS: TRANEXAMIC ACID 1,000 MG IVPB 1,000 MG/100 ML BAG 200 MG IV (11:52)
[2025-11-04] MEDS: ACETAMINOPHEN IVPB 1,000 MG/100 ML VIAL 250 MG IV (12:40)
--- NOTE | 2025-11-04 13:03 | PD.LDDELS ---
Data (Allen) Data Hx Section: No : 2 Term: 0 : 0 Livin Abortions: Spontaneous & Theraputic: 1 Delivery Data (Allen) Labor Data Initiation of labor: Induction Induction/Augmentation Agent: Cytotec-PO and Pitocin ROM date: 11/04/25 ROM time: 01:10 Amniotic membrane rupture type: Spontaneous Amniotic fluid description: Clear Delivery Data EDC: 10/27/25 EDC calculated by:: LMP/early US confirmation Date of arrival to unit: 11/03/25 Time of arrival to unit: 05:27 Onset of labor date: 11/04/25 Onset of labor time: 01:10 Complete dilation date: 11/04/25 Complete dilation time: 10:40 Sterling delivery date: 11/04/25 Sterling delivery time: 11:36 Gestational age (weeks): 41 Gestational age (days): 0 Placenta delivery date: 11/04/25 Placenta delivery time: 11:45 Stage 1 total time: Labor - Stage 1 Duration 9 hours and 30 minutes Delivered by: Angle Abrams Delivery nurse: Rick Ruth RN [place] nurse: Lu Mendez LEAD INFORMATICA DEVELOPER & Loretta Mendez RN Other staff at delivery: fob and sister of pt Delivery Method Delivery method: Normal Vaginal Delivery Presentation: Vertex position: OA Anesthesia Type Anesthesia Type: Epidural Delivery Room Medications Delivery room medications given: ampicillin, IV tylenol Delivery room medications: Methergine 0.2 mg IM, Pitocin 10 u IM, Pitocin 20 u IV, Cytotec 800 DE and other (TXA) Placenta Placenta delivery description: Spontaneous (inspected and intact) cord blood collection: Cord Blood Type Episiotomy Episiotomy description: None Lacerations #1: Perineal: 2nd degree (bilateral vag tears) Perineal repair Sutures used for repair: 3.0 Vicryl (2 3.0, 2.0) EBL Estimated blood loss (ml): 400 Umbilical Cord cord description: 3 Vessels and Nuchal Cord (x1) Sterling Data (Allen) Data order: 1 's gender: Female 1 minute: 9 5 minutes: 9
[2025-11-04] MEDS: Ampicillin Inj 2,000 MG in SODIUM CHLORIDE 0.9% (POP) 100 ML 200 MG IV ×3 (13:42→23:40)
[2025-11-04] MEDS: IBUPROFEN TAB 400 MG TABLET 800 MG PO (18:08)
[2025-11-04] MEDS: DOCUSATE SOD 100 MG CAPSULE PO (20:51)
[2025-11-04 21:02] LABS: Basophils # (Auto) 0.1 Thou/mm3 (0.0-0.2); Basophils % (Auto) 0 % (0-2.5); Eosinophils # (Auto) 0.1 Thou/mm3 (0.0-0.5); Eosinophils % (Auto) 0 % (0-10); Hematocrit 29.7 % (36.0-46.0); Hemoglobin 9.0 g/dL (12.0-16.0); Immature Granulocytes Auto 0.14 Thou/mm3 (0.00-0.00); Lymphocytes # (Auto) 2.3 Thou/mm3 (1.0-4.8); Lymphocytes % (Auto) 11 % (10-50); Mean Corpuscular HGB Conc 30.3 g/dl (31.0-37.0); Mean Corpuscular Hemoglobin 20.5 pg (25.0-35.0); Mean Corpuscular Volume 68 fL (80-100); Monocytes # (Auto) 1.2 Thou/mm3 (0.0-0.8); Monocytes % (Auto) 6 % (0-12); Neutrophils # (Auto) 17.7 Thou/mm3 (1.8-7.7); Neutrophils % (Auto) 83 % (37-80); Nucleated Red Blood Cell # 0.03 Thou/mm3 (0.00-0.00); Nucleated Red Blood Cell % 0 /100 WBC (0); Platelet Count 317 Thou/mm3 (140-440); RDW Standard Deviation 55.1 fL (36.4-46.3); Red Blood Count 4.40 Miln/mm3 (4.00-5.20); White Blood Count 21.5 Thou/mm3 (4.5-11.0)
[2025-11-05] MEDS: ACETAMINOPHEN IVPB 1,000 MG/100 ML VIAL 250 MG IV (00:35)
[2025-11-05 04:52] VITALS: BP 101/61; PULSE 72; RESP 20; TEMP 36.4; O2SAT 98
[2025-11-05] MEDS: Ampicillin Inj 2,000 MG in SODIUM CHLORIDE 0.9% (POP) 100 ML 200 MG IV (05:17)
--- NOTE | 2025-11-05 05:36 | PC.NURSE ---
11/04/25 5000 provided pt with a breast pump. Demonstrated how to use the pump all questions answered.
[2025-11-05 08:00] VITALS: BP 108/64; PULSE 71; RESP 16; TEMP 36.9; O2SAT 98
--- NOTE | 2025-11-05 08:42 | PD.LDPPPRG ---
Subjective Subjective Interval history: Perineal pain improving. Denies dizziness. Reports difficulty in feeding the baby she is concerned the baby stuck in the left milk. She is bonding and breast and bottlefeeding Exam Vital Signs Temp Pulse Resp BP Pulse Ox O2 Del Method 98.4 F 71 16 108/64 98 Room Air 11/05/25 08:00 11/05/25 08:00 11/05/25 08:00 11/05/25 08:00 11/05/25 08:00 11/05/25 08:00 Narrative Exam Vital signs are stable afebrile. Her hemoglobin is 9. Platelets normal and WBCs just decreased to 15. Chest is soft. Abdomen soft nontender. Perineum second-degree laceration is well-approximated. Minimal swelling. Lochia is mild. uterus well involuted. 2+ DTRs. Negative Homans Objective Labs 11/04/25 20:53 Labs: Laboratory Results - last 24 hr 11/04/25 20:53 WBC 21.5 H D RBC 4.40 Hgb 9.0 L Hct 29.7 L MCV 68 L MCH 20.5 L MCHC 30.3 L RDW Std Deviation 55.1 H Plt Count 317 Neut % (Auto) 83 H Lymph % (Auto) 11 [place] % (Auto) 6 Eos % (Auto) 0 Baso % (Auto) 0 Neut # (Auto) 17.7 H Lymph # (Auto) 2.3 [place] # (Auto) 1.2 H Eos # (Auto) 0.1 Baso # (Auto) 0.1 Immature Gran # (Auto) 0.14 H Absolute Nucleated RBC 0.03 H Immature Gran % 1 H Nucleated RBC % 0 Assessment & Plan Problem List (1) Normal labor and delivery: Status: Acute Assessment Comment Assessment comment: 24 hr pp Plan Comment Plan Comment: Discharge home with baby today. Continue vitamins. Iron at least once a day. Increase green veggies broccoli and spinach. Increase fluids. Increase rest. No sex. Discussed comfort measures for second-degree perineal laceration. Discussed danger signs symptoms and ER precautions. Return in 3 weeks visit Time Spent With Patient Time: Total time spent is greater than 50% in coordination of care (as documented) at patient's floor/unit and/or counseling patient:
--- NOTE | 2025-11-05 08:44 | ESDS_ITS ---
DS: Providers Provider Date of admission: 11/03/25 05:27 Primary care physician: Sonny Manzano MD Admitting Provider: Demetris Orozco MD Attending Provider on Admission: Angle Abrams CNM Consults: 11/04/25 13:12 Referral Routine Comment: Attending Provider on DC: Angle Abrams CNM Discharging Provider: Angle Abrams CNM DS: Diagnosis Problem List Completed Was Problem List Reviewed/Reconciled?: Yes Summary/Hosp Course Brief History: 20-year-old 2 para 0 for induction of labor. Patient has been followed at [facility] OB clinic. First visit was at 8 weeks 4 days. was affected by severe anemia and baby growing in the 20th percentile. Patient received IV iron x 3 doses antepartum. She also had weekly NST BPP for small for dates. Denies bleeding denies leaking. Reports movement. Patient is A+, antibody screen negative, RPR nonreactive, rubella, hepatitis B negative, hep C negative, HIV negative, GC and Chlamydia were negative. Her NIPT and carrier screens were negative. Her 1 hour was negative and GBS negative. Denies social habits. Denies surgery. Denies chronic illness last. Was January 20, 2025. Estimated due date October 27, 2025. Patient had a second trimester ultrasound to confirm dates. CBC: HCT:25/hgb: 7.3, PLT: 325 Peripartum Data Delivery Method: Normal Vaginal Delivery Episiotomy Description: None Laceration Description: yes (2nd) complications: none Time Spent with Patient Time attestation: Total time spent providing and/or coordinating discharge services: Exam Vital Signs Temp Pulse Resp BP Pulse Ox O2 Del Method 98.4 F 71 16 108/64 98 Room Air 11/05/25 08:00 11/05/25 08:00 11/05/25 08:00 11/05/25 08:00 11/05/25 08:00 11/05/25 08:00 Discharge Plan Plan Patient Disposition: HOME (Self Care) Patient condition on transfer: Stable Prescriptions/Referrals Prescriptions/Med Rec: No Action Classic 28 mg iron- 800 mcg tablet 0.126 - 28 tab PO DAILY 30 Days Qty: 60 2RF ferrous sulfate 325 mg (65 mg iron) tablet,delayed release (DR/EC) 325 mg PO BID Qty: 60 2RF Referrals: Sonny Manzano MD [Primary Care Provider, Family Practice] Patient/Caregiver Discharge Instructions Discharge Activity: resume usual activities Print Language: Icelandic Activity Restrictions/Additional Instructions: Discharge home with baby. Continue vitamins and iron. Discussed increase iron foods. Discussed comfort measures for secondary. Serration. Increase fluids and rest. No sex. Discussed danger signs and symptoms and ER precautions. And we discussed signs and infection return in 3 weeks visit Stand Alone Forms: Kirsten Award Info., Patient Portal Info Letter Discharge Order Discharge Orders: Discharge (Routine); Ordered 11/05/25 Ordered By: Angle Abrams Planned Discharge Date 11/05/25
[2025-11-05] MEDS: DOCUSATE SOD 100 MG CAPSULE PO (09:02)
[2025-11-05] MEDS: IBUPROFEN TAB 400 MG TABLET 800 MG PO (10:41)
== END 2025-11-05 12:40 | disposition home or self-care (01) | DRG 560 ==
LOC: S4SX 07:56 → S4NX 11-04 14:42
PROVIDERS: Admitting Provider Obstetrics & Gynecology; PCP Family Medicine; Visit Provider Advanced Practice Midwife
DX: O48.0 Post-term pregnancy (principal); Z3A.41 41 weeks gestation of pregnancy; Z37.0 Single live birth; O69.81X0 Labor and delivery complicated by cord around neck, without compression, not applicable or unspecified; O70.1 Second degree perineal laceration during delivery; O99.02 Anemia complicating childbirth; O36.5930 Maternal care for other known or suspected poor fetal growth, third trimester, not applicable or unspecified
CPT/HCPCS: 36415; 59409; 76805; 84112; 85025; 86780; 86850; 86900; 86901; 86923; 94762; J0131; J0290; J2210; J2590; J2795; J3010; J3490; J7120; P9016; S0191; A9270

== ENCOUNTER 2025-11-09 01:07 | Emergency (ER) | payer MEDICAID, SELFPAY ==
[2025-11-09 01:08] VITALS: BMI 30.1
[2025-11-09 01:18] VITALS: BP 119/75; PULSE 65; RESP 19; TEMP 36.8; O2SAT 99
--- NOTE | 2025-11-09 01:18 | XR_ITS ---
Examination: Duplex scan of the upper extremity, unilateral left Date and time of exam: November 09, 2025, 0253 hours INDICATIONS: Left arm pain beginning 2 days ago Technique: Duplex scan of the extremity veins using B-mode/grayscale imaging and Doppler spectral analysis and color flow Attention is directed to internal echogenicity, compression and augmentation involving these veins, color flow assessment, spectral analysis Findings: Major deep venous structures in the extremity demonstrate normal course and caliber. There is no evidence of deep vein thrombosis. Normal color flow and spectral analysis Impression: Negative for DVT..
--- NOTE | 2025-11-09 03:29 | PD.EDEXREM ---
ED Extremity Problem RME/HPI General Chief complaint: Extremity Problem,Nontraumatic Stated complaint: I THINK I HAVE A BLOOD CLOT Time Seen by Provider: 11/09/25 01:30 Arrival date/time: 11/09/25 01:07 20F with no significant PMH presents to ED with L arm bruising/pain/swelling after giving 3 days ago. IV site was in L arm. Limitations: no limitations Related Data Previous Rx's ?Medication ?Instructions ?Recorded ferrous sulfate 325 mg (65 mg 325 mg PO BID #60 tabs 08/30/25 iron) tablet,delayed release vits no.126-ferrous fum 0.126 - 28 tab PO DAILY 30 days 08/30/25 28 mg iron-folic acid 800 mcg #60 tabs tablet (Classic ) Allergies Allergy/AdvReac Type Severity Reaction Status Date / Time No Known Allergies Allergy Verified 11/09/25 01:08 Review of Systems Review of Systems Systems Reviewed: All systems reviewed, normal except as documented Integumentary/Breasts Skin/Breast: Reports as per HPI and Reports skin pain Past Medical History Past Medical History NEUROLOGIC: Negative Neurological Disorders or Seizures CARDIAC: Negative Cardiac Disorders or Congestive Heart Failure RESPIRATORY: Negative Chronic Obstructive Pulmonary Disease (COPD) GASTROINTESTINAL: Negative Gastrointestinal Disorders or Hepatitis GENITOURINARY: Negative Genitourinary Disorders or Renal Disease REPRODUCTIVE: Positive Previous Pregnancies (SAB at 8 weeks); Negative Endometriosis, Pelvic Inflammatory Disease or Uterine Prolapse MUSCULOSKELETAL: Negative Musculoskeletal Disorders ENDOCRINE: Negative Endocrine Disorders, Diabetes Mellitus Type 1 or Diabetes Mellitus Type 2 HEMATOLOGIC: Positive Anemia OTHER HISTORY: Negative Hospitalization, Autoimmune Disease, Down Syndrome, Developmental Delay, Shingles, Falls, Blood Transfusions, Blood Transfusion Reaction, Anesthesia Reactions, Organ Transplant, Chemotherapy, Radiation Therapy, Hyperbaric Therapy, MRSA, VRSA, Vancomycin-Resistant Enterococci, Human Immunodeficiency Virus (HIV), Chicken Pox, Measles, Mumps, Rubella ([place] Measles), Pertussis, Clostridium Difficile or Cancer Family History FAMILY HISTORY: Positive Family Cancer (breast - mother) and Family Surgery (mastectomy); Negative Family Psychiatric Problems, Family Respiratory Disorders, Family Cardiac Disorders, Family Gastrointestinal Problems or Family Anesthesia Reaction Surgical History SURGICAL: Negative Section or Organ Transplant Social History SMOKING STATUS: Never smoker SECOND HAND EXPOSURE: No ED Exam General Limitations: Present no limitations General appearance: Present alert and in no apparent distress Head Head exam: Present atraumatic Neck Neck exam: Present normal inspection, full ROM and trachea midline Chest Chest inspection: Present normal inspection and symmetric chest wall rise Extremities Exam Extremities exam: Present full ROM Expanded Upper Extremity Exam Elbow exam: Present full ROM and ecchymosis (L A/C) Neurological Exam Neurological exam: Present alert and oriented X3 Psychiatric Psychiatric exam: Present normal affect and normal mood Skin Skin exam: Present warm, dry, intact and normal color Course Quality Measures none Orders Category Date Time Status US venous doppler UE LT Stat Exams 11/09/25 01:18 Taken Vital Signs Vital signs: Vital Signs Temperature 98.2 F 11/09/25 01:18 Pulse Rate 65 11/09/25 01:18 Respiratory Rate 19 11/09/25 01:18 Blood Pressure 119/75 11/09/25 01:18 Pulse Oximetry (%) 99 11/09/25 01:18 Oxygen Delivery Method Room Air 11/09/25 01:18 O2 at 99% on RA and WNLs Extremity Problem MDM Narrative MDM Narrative:: 20F with no significant PMH presents to ED with L arm bruising/pain/swelling after giving 3 days ago. IV site was in L arm. Physical exam reveals some bruising in L A/C, but no obvious swelling or redness. Normal WOB. Patient is afebrile, calm, and alert. US Telerad no DVT. Managed Care Manager given. Patient data External records reviewed:: [facility] previous records Clinical information provided by:: patient Social determinants that could affect healthcare access:: none Patient has the following chronic illnesses:: none How is presenting disease/condition affected by chronic disease/condition?: no chronic disease Evaluation data The following diagnostics were reviewed and interpreted by me:: radiology exam(s) Lab and/or radiology exams considered but not ordered:: ordered Interpretation Summary: above Medications / Prescriptions Medications or Prescriptions considered but not ordered:: not ordered Medication administrations:: n/a Consultations Consultation(s) initiated? (list below): No Diagnosis Extremity Problem Differential Diagnosis: herpes zoster, gout, cellulitis, superficial thrombophlebitis, deep venous thrombosis of upper extremity, lower extremity edema, deep vein thrombosis of lower extremity and other (arm bruise) Most likely diagnosis given after review of the tests above:: arm bruise Admission Indicated Admission indicated?: not indicated Admission Request Was there a request for admission?: No Disposition Plan Disposition Plan: Discharge Discharge Attestation Discharge Attestation: The patient and all family members were given an opportunity to ask questions and understood the discharge instructions. Discharge instructions specifically effects, indications for sooner follow up or return to the emergency department, and the expected course of current diagnosis. Patient condition: Stable Discharge Plan Plan Patient Disposition: HOME (Self Care) Discharge Disposition comment: Stable Prescriptions/Referrals Prescriptions/Med Rec: No Action Classic 28 mg iron- 800 mcg tablet 0.126 - 28 tab PO DAILY 30 Days Qty: 60 2RF ferrous sulfate 325 mg (65 mg iron) tablet,delayed release (DR/EC) 325 mg PO BID Qty: 60 2RF Referrals: Sonny Manzano MD [Primary Care Provider, Family Practice] - In 1 week Problem List Clinical Impression: Arm bruise Patient/Caregiver Discharge Instructions Education Materials: Bruises (Contusions) Additional Instructions: Please follow-up with PCP within 24-48 hours and return immediately if symptoms worsen. Print Language: Uzbek Stand Alone Forms: Patient Portal Info Letter TU/CRISTIAN Supervising Physician ANDRZEJ Supervising Physician: Dr. High
--- NOTE | 2025-11-09 04:00 | PRELIM_ITS ---
Left upper extremity venous Doppler ultrasound with wave Doppler spectral analysis. November 09, 2025 at 0255 hours Clinical history: Rule out deep vein thrombosis. Technique: Duplex scan of the left arm performed utilizing, 2D grayscale imaging, Doppler spectral analysis and color flow Doppler with compression. Comparison: None available at the time of this report. Findings: The internal jugular vein is patent and compressible. The brachiocephalic vein is patent. The subclavian vein is patent. The axillary and brachial veins are patent and demonstrate compression. The cephalic and basilic veins are patent and demonstrate compression. No evidence of thrombosis. Impression: No evidence of venous thrombosis in the left upper extremity. Report Electronically Signed By: Juan M Cruz 11/09/2025 3:59:35 AM [EST]
[2025-11-09 04:20] VITALS: BP 119/74; PULSE 66; RESP 18; TEMP 36.8; O2SAT 98
== END 2025-11-09 04:30 | disposition home or self-care (01) ==
PROVIDERS: Emergency Provider Emergency Medicine; PCP Family Medicine
DX: O99.893 Other specified diseases and conditions complicating puerperium (principal); S40.022A Contusion of left upper arm, initial encounter; X58.XXXA Exposure to other specified factors, initial encounter
CPT/HCPCS: 93971; 99282

== ENCOUNTER 2025-11-12 13:59 | Outpatient (AMBR) | payer MEDICAID, SELFPAY ==
--- NOTE | 2025-11-12 14:56 | LAC.VISIT ---
Assessment LAC Breast Assessment Breast Assessment Left: Breast Assessment Comment: both breasts are large, pendulous and soft Alternative Milk Expression Alternative Milk Expression Alternative Method Used: Yes Method Used: Pumping Alternative Method Comment: mom pumping only for extra milk down the road or for small outside excursion. 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 she exclusively breastfeeds baby at this time. LAC Assessment Breast Feeding Assessment Date of : 11/05/25 Current Age of baby: 7 (days) Weight: 3260.195 g Current weight of baby: 3203.496 g [place] # of Stool voids in last 24 hrs: 2 Stool Size: Medium Color of Stools: yellow [place] # of Urine voids in last 24 hrs: 8 Color of Urine: clear to yellow with no crystals Breast Feeding Ability: Well [place] Complications Comment: baby does a great latch at the beginning of feed, but within a few minutes she slides down. she is having a hard time flaring her top lip. it is very taunt and rigid Activity Level: Awake / Alert and Rooting Muscle Tone: With In Normal Limits Suck Quality: Areolar Compression and Rhythmic Effective [place] Suck: Yes [place] Swallow: Audible and Observed [place] Jaw: With In Norml Limits Lip Seal: Tight Lips Feeding Posistion: Laid Back Additional Latch or Posistion Assistance Needed: Minimal Breast Feeding Comment: Using laid back nursing position to assist with less air transfer and help with babys constant regurgitation of milk. parents state that baby will throw up pretty much after every feed. mom has a fast let down and good milk supply. making baby gasp when nursing and taking in air due to lip tie. the laid back nursing position did help and are seeing less vomiting or spitting up. LAC Intervention Interventions Tools: Pump Techniques Discussed: Latch, Position and Pumping Discharge Follow Up Appointment Date and Time: once she has appointment for oral tissue tethers she will follow up here Other Referral Made: Yes Feeding Preference at Discharge: Exclusive LAC Latch Score LATCH Score Latch: Grasps Breast, Rythmic Suck Audible Swallow: Spontaneous, Intermittent, Frequent Nipple Type: Everted After Stimulation Comfort: Soft, Nontender Hold: Minimal Assistance Needed Total Score: 9 LAC Oral Assessment Oral Assessment Prenulum Level: Normal Lip: Tight Upper Lip Palate: High Dental Referral made: Yes OP DC Assessment Discharge Follow Up Appointment Date and Time: once she has appointment for oral tissue tethers she will follow up here Other Referral Made: Yes
== END 2025-11-21 23:59 | disposition home or self-care (01) ==
LOC: HODLAC 13:59
DX: Z39.1 Encounter for care and examination of lactating mother (principal)